=== PATIENT | male | born 1950 | race Caucasian/White ===

== ENCOUNTER → 2018-04-20 07:43 | Outpatient (CLI) | payer MEDICARE, OTHER, SELFPAY ==
--- NOTE | 2018-04-20 08:01 | AAAS_ITS ---
Reason For Study: Screening Aorta Measurements Aorta Doppler Measurements Proximal aorta measures1.68cm x 1.82cm. in cross-Peak systolic flow velocities within the proximal sectional axis. aorta measure 71 cm/sec. Proximal aorta measures1.76cm. in longitudinal Peak systolic flow velocities within the mid axis. aorta measure 64 cm/sec. Mid aorta measures1.49cm x 1.57cm. in cross- Peak systolic flow velocities within the distal sectional axis. aorta measure 90 cm/sec. Mid aorta measures1.46cm. in longitudinal axis. Distal aorta measures1.36cm x 1.34cm. in cross- sectional axis. Distal aorta measures1.39cm. in longitudinal axis. Left Iliac Artery Left iliac artery measures 0.81cm x 0.82 cm. in the cross-sectional axis. Left iliac artery measures 0.84 cm. in the longitudinal axis. Peak systolic velocity in the left iliac artery measures 214 cm/sec. Right Iliac Artery Right iliac artery measures 0.76cm x0.76 cm. in the cross-sectional axis. Right iliac artery measures 0.82 cm. in the longitudinal axis. Peak systolic velocity in the right iliac artery measures 127 cm/sec. Procedure Aorta IVC Iliac vasculature or bypass grafts 71220. Exam performed in department. Interpretation Summary The dimensions of the intra-abdominal aorta appear normal, without evidence of aneurysmal dilatation. The iliac arteries also appear normal in size. The intra-abdominal aorta and iliac arteries appear patent. The peak systolic velocity appears elevated in the left iliac artery, which is suggestive of stenosis. Clinical correlation is advised. Ordering Physician: MONA HARDEN Referring Physician: MONA HARDEN Performed By: Aubree Singletary, RDCS, RVT
== END ==
PROVIDERS: Family Provider Family Medicine; PCP Family Medicine; Visit Provider Family Medicine
DX: Z13.6 Encounter for screening for cardiovascular disorders (principal); I10 Essential (primary) hypertension
CPT/HCPCS: 76706

== ENCOUNTER 2019-08-29 12:54 | Inpatient (IN) | payer MEDICARE, OTHER, SELFPAY ==
[2019-08-29] VITALS (8 sets, daily range): BP systolic 106–147; BP diastolic 61–89; PULSE 75–95; RESP 17–25; TEMP 37.2–38.9; O2SAT 93–97; BMI 25.1; BMI 21.0; BMI 21.1
--- NOTE | 2019-08-29 13:56 | RAD_ITS ---
STUDY: X-RAY CHEST REASON FOR EXAM: Male, 69 years old. Chest congestion. Weakness and headaches. TECHNIQUE: Single AP portable view of the chest. COMPARISON: None. FINDINGS: Focal infiltrate in the lateral aspect of the right lower lobe as well as increased markings in the left lower lobe. Follow-up is recommended. There is no demonstrated pleural abnormality. Normal size heart. Normal mediastinum and nannette. Normal visualized pulmonary arteries. There is atherosclerotic tortuosity of the aortic arch and descending thoracic aorta. There are diffuse degenerative changes of the visualized thoracic spine. Normal visualized ribs, clavicles, and shoulders. There is no demonstrated abnormality of the visualized soft tissue structures of the upper abdomen. RAD/Chest 1 View (Portable) IMPRESSION: Infiltrate in the lateral aspect of the right lower lobe as well as increased markings in the left lower lobe. Follow-up is recommended. Electronically Signed: Fracisco Paredes, at 14:20 EST , Service support ,
--- NOTE | 2019-08-29 13:56 | CT_ITS ---
STUDY: CT BRAIN WITHOUT CONTRAST REASON FOR EXAM: Male, 69 years old. Headaches. Cold-like symptoms. RADIATION DOSAGE (If Supplied By Facility): CTDIvol = ( 44.99 ) mGy, DLP = ( 779.24 ) mGycm TECHNIQUE: Transaxial CT imaging of the brain was performed without administration of intravenous contrast material. Individualized dose optimization techniques were used for this CT. COMPARISON: No relevant priors. FINDINGS: Normal soft tissue structures. Normal calvarium. There is mild cerebral atrophy with widening of the extra-axial spaces and ventricular dilatation. Normal white matter tracts of the cerebral hemispheres. There are small punctate calcifications of the basal ganglia which are seen in the aging brain as a normal variant. Normal brainstem. Normal cerebellum. There is no intracranial hemorrhage. There are no findings of an acute ischemic infarction. Atherosclerotic calcification of the cavernous portions of the internal carotid arteries bilaterally. Normal visualized paranasal sinuses. CT/Brain/Head without Contrast IMPRESSION: Chronic involutional changes of the brain. No acute abnormalities. Electronically Signed: Fracisco Paredes, at 15:03 EST , Service support ,
--- NOTE | 2019-08-29 13:56 | EKG12_ITS ---
Test Reason : Blood Pressure : / mmHG Vent. Rate : 072 BPM Atrial Rate : 072 BPM P-R Int : 176 ms QRS Dur : 098 ms QT Int : 390 ms P-R-T Axes : 076 028 070 degrees QTc Int : 427 ms Normal sinus rhythm Normal ECG Confirmed by CHRISTINE MANNING, SADA ([id number]), manuscript editor YURIY DEMARCO ([id number]) on 09/02/2019 9:23:42 AM Referred By: HARJINDER Confirmed By:MARCELLA KING MD
--- NOTE | 2019-08-29 14:01 | ED.DCSUM_ITS ---
- ER Visit Summary Date of Service: 08/29/19 Chief Complaint: Near syncope History of Present Illness: The patient is a 69 M presenting with near syncope, lightheadedness, generalized weakness. He also states he has had an intermittent headache for the past 4 days. He has been taking Excedrin which has been improving his headache. He fell twice yesterday secondary to his dizziness. Denies vertigo. Denies vision or speech changes. He did not hit his head or lose consciousness with the falls. He states he does not feel safe at home because he is concerned that he is going to continue to fall. He denies chest pain. He has shortness of breath that is no worse than his chronic shortness of breath from COPD. He states he has had a cough and subjective fever for the last few days. Denies other complaints. Physical Examination: Vitals are stable. Patient is afebrile. Alert no acute distress. HEENT exam is unremarkable. Neck is supple. Lungs are diminished bilaterally. Heart is regular rate and rhythm. Abdomen is soft nontender nondistended. Extremities are unremarkable. Skin is warm and dry. No focal neurologic deficit. Remainder of exam is unremarkable. Emergency Department Course and Treatment: EKG is sinus rate of 72 with no acute ischemic changes. Chest x-ray shows infiltrate in the lateral aspect of the right lower lobe as well as increased markings in the left lower lobe. Follow- up is recommended. CT head shows chronic changes. CBC, chemistries unremarkable other than sodium 127, glucose 120, BUN 21. Troponin is negative. Blood cultures were sent. He was given Rocephin and Zithromax IV. Discussed with the hospitalist for admission. Disposition: Admission Impression: Pneumonia, hyponatremia, near-syncope This note was generated with [employer] dictation software. It may contain incorrect words, spelling, and punctuation that were not noted in review of the chart prior to signing ED Disposition - Plan for ED Patient: Referrals: Marvin Schroeder [Primary Care Provider] -
[2019-08-29 14:43] LABS: Absolute Lymphocyte Count 0.77 X10^3/uL (0.83-4.51); Absolute Neutrophil Count 8.4 X10^3/uL (2.0-7.7); Basophil# 0.02 X10^3/uL; Basophil% 0.2 % (0-1); Eosinophil# 0.01 X10^3/uL; Eosinophils% 0.1 % (0-5); Hematocrit 44.3 % (40-54); Hemoglobin 15.4 g/dL (13.0-16.5); Lymphocyte # 0.77 X10^3/ul (4.0); Lymphocyte % 7.3 % (19-41); Mean Corp Hgb Conc 34.8 g/dL (32-36); Mean Corpuscular Hgb 32.2 pg (27.0-32.0); Mean Corpuscular Volume 92.7 fL (80-94); Monocyte% 12.4 % (0-10); NRBC Flagged by Analyzer 0 % (0-5); Neutrophil # 8.35 X10^3/uL (2.7-7.7); Neutrophil % 79.5 % (47-70); Platelet Count 264 K/mm3 (150-450); RBC Distribution Width CV 11.9 % (11.6-14.6); Red Blood Count 4.78 M/mm3 (4.6-6.2); White Blood Count 10.5 K/mm3 (4.4-11.0)
[2019-08-29 14:55] LABS: Anion Gap 7 (5-15); BUN 21 mg/dL (7-18); BUN/Creat Ratio 24.1 RATIO (10-20); Calcium,Total 8.8 mg/dL (8.5-10.1); Chloride 93 mmol/L (98-107); Creatinine, Serum 0.87 mg/dL (0.70-1.30); EST Glomerular Filtration Rate 92 mL/min (>60); Est Glom Filt Rate - Afr Amer 112 mL/min (>60); Estimated Creatinine Clearance 83.91 ml/min; Glucose 120 mg/dL (74-106); Potassium 3.9 mmol/L (3.5-5.1); Sodium Level 127 mmol/L (136-145)
[2019-08-29 15:34] LABS: Squamous Epithelial Cells - UA 0 SEEN /hpf (0-5)
[2019-08-29 15:45] LABS: Color, Urine Yellow (Yellow); Glucose, Dipstick Normal (Normal); Ketone-Dipstick 15 mg/dl (Negative); Leukocyte Esterase-Dipstick 25 /ul (Negative); Nitrite-Dipstick Negative (Negative); Occult Blood-Urine 50 /ul (Negative); Protein-Dipstick 30 mg/dl (Negative); Specific Gravity, Urine 1.015 (1.002-1.030); Urine Bilirubin Dipstick Negative (Negative); Urine Clarity Clear (Clear); Urine Urobilinogen 1 mg/dl (Normal)
[2019-08-29] MEDS: Ceftriaxone 1 GM/50 ML BAG IV (15:51)
[2019-08-29 15:55] LABS: Bacteria RARE /hpf (None Seen); Mucous, Urine 1+ /hpf (<or=2+); Red Blood Cells-Urine 0-5 SEEN /hpf (0-5); White Blood Cells 0-5 SEEN /hpf (0-5)
--- NOTE | 2019-08-29 17:07 | CT_ITS ---
We are attempting to reach an attending provider to discuss findings. An addendum with communication details will be sent when the communication is complete. STUDY: CT CHEST WITHOUT CONTRAST REASON FOR EXAM: Male, 69 years old. Pneumonia RADIATION DOSAGE (If Supplied By Facility): DLP = ( 604.48 ) mGycm TECHNIQUE: Transaxial imaging was performed without the administration of intravenous contrast material. Coronal and sagittal reformatted images were created. Individualized dose optimization techniques were used for this CT. COMPARISON: None FINDINGS: Moderate emphysema is present. There is a right middle lobe consolidation. Bibasilar scarring is present. There is a left lower lobe 1.9 cm nodule with mild spiculation. There is no evidence of thoracic aortic aneurysm. Images through the upper abdomen demonstrate no significant abnormality. There are no destructive osseous lesions. CT/Chest without Contrast IMPRESSION: Right middle lobe consolidation, consistent appearance with reported pneumonia. Left lower lobe 1.9 cm nodule, concerning for neoplasm. Biopsy is recommended. Bibasilar scarring. Moderate emphysema. Electronically Signed: Jad Mtz, at 18:06 EST Tel , Service support ,
--- NOTE | 2019-08-29 17:47 | ED.RN ---
AFTER ROCEPHIN FINISHED, THIS RN WENT TO START ZITHROMAX AND FOUND BAG TO BE LEAKING. MEDICATION DISPOSED OF PER POLICY AND PHARMACY CALLED FOR NEW BAG.
[2019-08-29] MEDS: Ipratropium/Albuterol Sulfate 3 ML AMPUL.NEB INHALATION (20:00)
--- NOTE | 2019-08-29 20:29 | PCM.HP.STD ---
History of Present Illness Date of Admission: 08/29/19 The patient is a 69 year old M who presented to the ED today after being coaxed by his to do so. He has been feeling poorly for about 1 month now. He states that initially he had a sore throat and sinus issues but now he is having generalized weakness, malaise, lightheadedness, near syncope, cough, and SPANN. Today he took Excedrin and his SPANN is better today. His po intake has not been that great per his . he state that he is concerned that he is going to fall. He has SOB that is no worse than his baseline from COPD. He states that he has had some sweats and that he has felt chilled but denies fever. 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 He has not smoked in the last 5 days and has no urge to as it was making him feel worse. EKG and troponin were WNL. He has no white count elevation. He has some mild hyponatremia with an elevated BUN. Urine SG is 1.015 with a few ketones present. His BP is mildly elevated and sats are stable on RA. CXR shows an infiltrate in the RLL. Head CT was done 2/2 the near syncope episodes and was neg for acute changes. Past Medical History Medical History: Medical History (Last Reviewed 08/29/19 @ 20:53 by Gloria Sheppard DO) BPH (benign prostatic hyperplasia) N40.0 Depression F32.9 GERD (gastroesophageal reflux disease) K21.9 Hyperlipidemia E78.5 COPD (chronic obstructive pulmonary disease) J44.9 HTN (hypertension) I10 Allergies Sulfa (Sulfonamide Antibiotics) Allergy (Verified 08/29/19 12:58) Hives Home Medications: Ambulatory Orders Medication Instructions Recorded Simvastatin [Zocor] 40 mg PO QHS 07/18/17 Albuterol Inhaler [Ventolin Hfa 2 puff INHALATION Q4H PRN PRN 08/29/19 (SP)] Aspirin/Acetaminophen/Caffeine 1 tab PO DAILY 08/29/19 [Excedrin Migraine Caplet] Budesonide/Formoterol 160/4.5 2 puff INHALATION BID 08/29/19 [Symbicort 160/4.5 Mcg Inhaler (SP)] Finasteride [Proscar] 5 mg PO DAILY 08/29/19 Ipratropium/Albuterol Sulfate 3 ml INHALATION 4X/DAY 08/29/19 [Duoneb] Omeprazole 20 mg PO DAILY 08/29/19 Paroxetine HCl 20 mg PO DAILY 08/29/19 Tamsulosin HCl [Flomax] 0.4 mg PO DAILY 08/29/19 Tiotropium [place] [Spiriva 18 MCG] 1 puff INHALATION DAILY 08/29/19 Surgical History: noncontributory Psychiatric History: Anxiety, Depression Lives: Spouse/ Significant Other Smoking Status: Current every day smoker Tobacco Use: Cigarettes Alcohol: None Drugs: None Review of Systems Constitutional: Reports: Anorexia, Chills, Night Sweats, Malaise, Weakness, Fatigue. Denies: Fever, Weight Change Eyes: Denies: Blurred vision, Cataracts, Conjunctivae Inflammation, Double vision, Drainage, Eyelid Inflammation, Pain, Redness, Vision Change HEENT: Reports: Head Aches. Denies: Difficulty Hearing, Difficulty Swallowing, Dysphasia, Ear Pain, Eye Pain, Hard of Hearing, Hearing Changes, Nasal bleeding, Nasal Congestion, Post Nasal Drip, Sinus Congestion, Sinus Drainage, Sore Throat, Visual Changes Cardiovascular: Reports: Syncope - near. Denies: Chest Pain, Claudication, Chest Pressure, Chest Tightness, Edema, Heaviness, Light Headedness, Orthopnea, Palpitations, Paroxysmal Noc. Dyspnea Respiratory: Reports: Cough, Shortness of Breath, Shortness of breath upon exertion, Sputum production. Denies: Hemoptysis, Pleuritic Pain, Shortness of breath at rest, Wheezing Gastrointestinal: Denies: Abdominal Pain, Constipation, Diarrhea, Dyspepsia, Hematemesis, Hematochezia, Nausea, Melena, Vomiting Genitourinary: Reports: Retention. Denies: Dysuria, Frequency, Hematuria, Hesitancy, Incontinence, Nocturia, Urgency Musculoskeletal: Denies: Arm Pain, Back Pain, Foot Pain, Hand Pain, Joint Pain, Joint stiffness, Joint swelling, Joint Tenderness, Leg Pain, Muscle pain, Neck Pain, Shoulder Pain Skin: Denies: Dryness, Jaundice, Lesions, Pruritis, Rash, Skin Changes, Wounds Neurological: Reports: Headaches. Denies: Balance problems, Blurred vision, Double vision, Change in Speech, Slurred speech, Confusion, Difficulty swallowing, Focal weakness, Incoordination, Numbness, Tingling, Tremor, Seizures Psychiatric: Reports: Depression. Denies: Anxiety Endocrine: Denies: Change in Body Habitus, Heat/ Cold Intolerance, Polydipsia, Polyuria, Hx of Irradiation, Hx of Thyroiditis Hematologic/ Lymphatic: Denies: Adenopathy, Anemia, Easy Bruising, Easy Bleeding, Petechiae, Purpura, Hx of blood clot, Hx of blood transfusion VTE Information - Inpt Only VTE Present on Admission: No VTE Mechan Device Prophylaxis: SCD's VTE Pharm Prophylaxis ordered?: Yes - Physical Exam Vitals/I&O's: Vital Signs Temp Pulse Resp BP Pulse Ox 102.1 F H 84 18 147/78 H 94 08/29/19 18:45 08/29/19 19:00 08/29/19 18:45 08/29/19 18:45 08/29/19 18:45 Oxygen Delivery Method Room Air Weight: 66.6 kg Body Mass Index (BMI) 21.0 Intake and Output for Last 24 Hours 08/27/19 08/28/19 08/29/19 23:59 23:59 23:59 Intake Total 805 / 805 Balance 805 / 805 General: Alert, Oriented x3, Cooperative, No apparent distress, Well developed, Well nourished, - - appears comfortable, non-toxic, at bedside HEENT: Atraumatic, PERRLA, EOMI, Normocephalic Oral: Moist Mucosa, No Gingival or Mucosal Lesions/ Ulcerations Neck: Supple, No JVD, Negative Carotid Bruits, Negative Hepatojugular Reflux, No Nodes, No Nuchal Rigidity, Trachea Midline, Thyroid Normal Size and Texture Lungs: No rales, Rhonchi, Wheezes Cardiovascular: Regular rate, Regular Rhythm, Normal S1, Normal S2, No murmurs, No Ectopic Activity, No rub noted, No Gallop Abdomen: Bowel Sounds Present, Soft, Non Tender, Non-Distended, No Hepato-splenomegaly, No hernias noted Extremities: No clubbing, No cyanosis, No edema, Capillary Refill Less than 3 Seconds Skin: No rashes, No breakdown Musculoskeletal: No Tenderness to Palpation of Joints or Extremities, No Muscle Wasting, Arthritic Changes - B hands Lymphatic: No Cervical, Supraclavicular, or Inguinal Adenopathy Neurological: Cranial nerves II-XII grossly intact, Deep Tendon Reflexes 2+/4 and Symmetrical, Motor Exam 5/5 strength throughout Psych/Mental Status: Normal Affect, Anxious, - - very pleasant and A&O x 3 Laboratory Results 08/29/19 14:30: WBC 10.5, RBC 4.78, Hgb 15.4, Hct 44.3, MCV 92.7, MCH 32.2 H, MCHC 34.8, RDW Std Deviation 41.0, RDW Coeff of Vashti 11.9, Plt Count 264, MPV 9.0, Immature Gran % (Auto) 0.500, Neut % (Auto) 79.5 H, Lymph % (Auto) 7.3 L, [place] % (Auto) 12.4 H, Eos % (Auto) 0.1, Baso % (Auto) 0.2, Absolute Neuts (auto) 8.4 H, Absolute Lymphs (auto) 0.77 L, Nucleated RBC % 0 08/29/19 14:30: Sodium 127 L, Potassium 3.9, Chloride 93 L, Carbon Dioxide 27.0, Anion Gap 7, BUN 21 H, Creatinine 0.87, Estim Creat Clear Calc 83.91, Est GFR (MDRD) Af Amer 112, Est GFR (MDRD) Non-Af 92, BUN/Creatinine Ratio 24.1 H, Glucose 120 H, Calcium 8.8, Troponin I < 0.015 08/29/19 15:25: Urine Color Yellow, Urine Clarity Clear, Urine pH 6.0, Ur Specific [place] 1.015, Urine Protein 30 H, Urine Glucose (UA) Normal, Urine Ketones 15 H, Urine Occult Blood 50 H, Urine Nitrite Negative, Urine Bilirubin Negative, Urine Urobilinogen 1 H, Ur Leukocyte Esterase 25 H, Urine RBC 0-5 SEEN, Urine WBC 0-5 SEEN, Ur Squamous Epith Cells 0 SEEN, Urine Bacteria RARE, Urine Mucus 1+ Current Medications Acetaminophen (Tylenol) 650 mg PO Q6H PRN PRN PRN Reason: Non-cardiac pain (mod-severe) Hydrocodone Bitart/Acetaminophen ([place] 5mg-325mg) 1 - 2 tablet PO Q6H PRN PRN PRN Reason: Pain Score 4-10/10 Al Hydroxide/Mg Hydroxide ([place]ylanta Ii) 15 - 30 ml PO Q4H PRN PRN PRN Reason: INDIGESTION Albuterol Sulfate (Ventolin Aerosols) 2.5 mg INHALATION Q2H PRN PRN PRN Reason: dyspnea, wheezing Albuterol/Ipratropium (Duoneb) 3 ml INHALATION Q4HWA.RT [facility]ORTENC[facility] Atorvastatin Calcium (Lipitor) 20 mg PO QHS HORTENCIA Dextrose (D50w Syringe) 0 gm IV X1 PRN; Protocol PRN Reason: Hypoglycemia Famotidine (Pepcid) 20 mg PO BID [facility]ENC[facility] Finasteride (Proscar) 5 mg PO DAILY [facility] Glucagon () 1 mg IM .X1 PRN PRN Reason: Hypoglycemia Guaifenesin (Robitussin) 20 ml PO Q4H PRN PRN PRN Reason: COUGH Hydralazine HCl (Apresoline Iv) 10 mg IV Q4H PRN PRN PRN Reason: SBP > 160 Azithromycin 500 mg/ Dextrose 255 mls @ 250 mls/hr IV Q24 HORTENCIA Stop: 09/04/19 10:01 Ceftriaxone Sodium 2 gm/ (Sodium Chloride) 50 mls @ 100 mls/hr IV Q24 HORTENCIA Stop: 09/06/19 10:01 Sodium Chloride () 1,000 mls @ 125 mls/hr IV .Q8H HORTENCIA Magnesium Hydroxide (Milk Of Magnesia) 30 ml PO DAILY PRN PRN Reason: Constipation Melatonin (Melatonin) 3 mg PO QHS PRN PRN PRN Reason: INSOMNIA Morphine Sulfate () 1 - 2 mg IV Q4H PRN PRN PRN Reason: Pain Score 1-10/10 Nitroglycerin (Nitrostat) 0.4 mg SUBLINGUAL Q5M PRN PRN Reason: CARDIAC/CHEST PAIN Ondansetron HCl (Zofran) 4 mg IV Q8H PRN PRN PRN Reason: NAUSEA/VOMITING Paroxetine HCl (Paxil) 20 mg PO DAILY [facility] Sodium Chloride () 10 - 40 ml IV UD PRN PRN Reason: SALINE FLUSH Tamsulosin HCl (Flomax) 0.4 mg PO DAILY [facility] Throat Lozenges (Cepacol Sore Throat Lozenge) 1 lozenge MUCOUS MEM Q2H PRN PRN PRN Reason: Sore Throat/Cough Assessment/Plan LLL PNA -Check sputum/urine antigens -CTX and Azithro -pulm toilet -IS -CT ordered and shows mass LLL Spiculated Mass -1.9 cm -Per d/w radiology would be amenable to CT guided bx -order for am -check coags -consult pulm Thrush -nystatin swish and spit -is on steroid inhaler as outpt per MAR Hyponatremia ? related lung issues/dehydration -repeat lab in am -if worsens will need further w/u Dehydration -IVF -repeat am lab Near-Syncope -EKG and troponins are unremarkable -check orthostatics -IVF BPH -continue Flomax/Proscar COPD/Tobacco Abuse -see above -sees pulm in [place] -denies need for nicotine patch GERD -continue PPI HPL -continue statin DVT prophylaxis -Lovenox -SCD
[2019-08-29 21:03] LABS: Magnesium 2.2 mg/dL (1.6-2.6)
[2019-08-29] MEDS: 0.9% Normal Saline 1,000 ML 125 ML IV (21:29)
[2019-08-29] MEDS: Atorvastatin Calcium 20 MG Tablet PO (21:29)
[2019-08-29] MEDS: NYSTATIN 500,000 UNIT/5 ML UDC 500000 UNIT PO (21:29)
[2019-08-29] MEDS: Famotidine 20 MG Tablet PO (21:29)
[2019-08-30] VITALS (22 sets, daily range): BP systolic 84–123; BP diastolic 52–83; PULSE 69–83; RESP 14–20; TEMP 36.7–37.6; O2SAT 93–98
--- NOTE | 2019-08-30 | ASPIGT_PTH ---
PATIENT: BRAN LEMOS LOC: [facility] U#:[id number] AGE/SX: 69/M ROOM: [facility] RE08/29/[address]: Dr. Calos Rosario DO : 1950 BED: 1 DIS: 08/31/2019 SPEC #: [id number] RECD: 08/30/19 13:46 STATUS: WILLIS REQ #: [id number] TONY: 08/30/19 00:[address]: Calos Rosario DEPT: SURGICAL PATHOLOGY RECD BY: Viraj Stockton ENTERED: 08/30/19 13:46 SP TYPE: ASP RAD OTHR DR: DO Dr. Marvin Verduzco DO Dr. Kathryn Lee, DO Tissues: Lung, NOS Procedures: FNA Specimen Adequacy Special Stain Group II Surgery Specimen Level IV Imprint (control) HEADER OPERATION: CT-guided left lung biopsy PRE-OP DIAGNOSIS: Left lung mass TISSUE SUBMITTED: Left lower lung nodule 20 gauge core x3 MICROSCOPIC DIAGNOSIS Left lower lung nodule, CT-guided core biopsy: Poorly differentiated non-small cell carcinoma. See comment. SJ:lana 09/02/19 COMMENT The specimen is evaluated at the time of biopsy by Dr. Lawson. Immediate Evaluation = Malignant cells present. Immunohistochemistry ([id number]) supports the above diagnosis. IHC profile and morphology are not specific enough to characterize as to squamous cell carcinoma versus adenocarcinoma. Mucin stain with matched control is used in the evaluation of the specimen and tumor cells are negative for mucin. Molecular studies on the tumor can be performed, if clinically indicated. Please notify the laboratory, if they are needed. Correlation with clinical, radiologic findings and appropriate follow up are necessary. Case has been reviewed in consultation with Dr. Christensen who concurs with the above diagnosis. IDC:AM MICROSCOPIC DESCRIPTION Slides are reviewed. GROSS DESCRIPTION Received in fixative is one container labeled with the patient's name and designated left lung mass, CT-guided core biopsy. The specimen consists of multiple irregular fragments of dale soft tissue that in aggregate measure 1 x 0.1 x <0.1 cm. The entire specimen is submitted in one cassette. One touch imprint is prepared at the time of core biopsy. / LUCÍA:lana 08/30/19 TC:0 CPT: 91554, 71845, 79672
--- NOTE | 2019-08-30 | IMM_PTH ---
PATIENT: BRAN LEMOS LOC: [facility] U#:[id number] AGE/SX: 69/M ROOM: [facility] RE08/29/[address]: Dr. Calos Rosario DO : 1950 BED: 1 DIS: 08/31/2019 SPEC #: [id number] RECD: 09/02/19 12:50 STATUS: SOUT REQ #: [id number] TONY: 08/30/19 00:[address]: Calos Rosario DEPT: IMMUNOHISTOCHEMISTRY RECD BY: Alannah Barriga ENTERED: 09/02/19 12:51 SP TYPE: IMMUNO OTHR DR: Dr. Hong Zaragoza, DO Dr. Marvin Schroeder, DO Dr. Gloria Sheppard, Tissues: Lung, NOS Procedures: RCC (add) NAPSIN A (add) CK20 (add) CK5-6 (add) CK7 (add) CK8 (add) HEP PAR (add) TTF1 (add) Pankeratin (initial) P40 (add) PSAP (add) PHYSICIAN & [address] [address] SPECIMEN INFORMATION: Tissue Source: Left lower lug nodule, CT-guided biopsy Clinical Info: Left lung mass Specimen Number: [id number] CPT code: 83288, 94147 x10 METHODOLOGY: Deparaffinized sections of prefer/formalin-fixed tissue or PAP/DQ stained slides are incubated with monoclonal/polyclonal antibodies/oligonucleotide probes. Localization is made via biotin free immunoperoxidase method. Appropriate controls are performed and reacted as expected. Results on target cell population are indicated in the following table: RESULTS: ANTIBODY / CLONE RESULT AE1-3 (AE1/AE3/PCK26) positive CK7 (OV-TL12/30) positive CK8 (14tyegW00) positive CK20 (KS20.8) negative TTF-1 (8G7G3/1) negative Napsin A (Rabbit Polyclonal) negative HepPar (OCh1E5) negative RCC (PN-15) negative PSAP (PASE/4LJ) negative CK5-6 (D5 & 1684) positive, focal P40 (BC28) positive, focal These tests were developed and their performance characteristics determined by [facility]. They may not have been cleared or approved by the U.S. Food and Drug Administration. The FDA has determined that such clearance or approval is not necessary. The above immunohistochemical/dualISH markers are ordered and reviewed by the Pathologist. INTERPRETATION: Left lower lug nodule, CT-guided biopsy: Poorly differentiated non-small cell carcinoma. See comment. Comment: IHC profile and morphology are not specific enough to characterize the lesion as squamous cell carcinoma versus adenocarcinoma. Case has been reviewed in consultation with Dr. Christensen who concurs with the above diagnosis. IDC:[email or web address] SJ:lana 09/03/19
[2019-08-30 03:19] LABS: Absolute Lymphocyte Count 1.23 X10^3/uL (0.83-4.51); Absolute Neutrophil Count 6.6 X10^3/uL (2.0-7.7); Basophil# 0.01 X10^3/uL; Basophil% 0.1 % (0-1); Eosinophil# 0.03 X10^3/uL; Eosinophils% 0.3 % (0-5); Hematocrit 40.1 % (40-54); Hemoglobin 13.9 g/dL (13.0-16.5); Lymphocyte # 1.23 X10^3/ul (4.0); Lymphocyte % 13.4 % (19-41); Mean Corp Hgb Conc 34.7 g/dL (32-36); Mean Corpuscular Hgb 32.3 pg (27.0-32.0); Mean Corpuscular Volume 93.3 fL (80-94); Monocyte# 1.25 X10^3/uL; Monocyte% 13.7 % (0-10); NRBC Flagged by Analyzer 0 % (0-5); Neutrophil # 6.58 X10^3/uL (2.7-7.7); Platelet Count 260 K/mm3 (150-450); RBC Distribution Width SD 41.3 fl (35.1-43.9); White Blood Count 9.2 K/mm3 (4.4-11.0)
[2019-08-30 03:23] LABS: International Normalized Ratio 1.1; Partial Thromboplast Time 35.2 Seconds (24.1-36.2); Prothrombin Time (Protime)PT. 13.7 SECONDS (11.7-14.9)
[2019-08-30 05:14] LABS: Anion Gap 10 (5-15); BUN 16 mg/dL (7-18); BUN/Creat Ratio 18.9 RATIO (10-20); Calcium,Total 7.6 mg/dL (8.5-10.1); Chloride 94 mmol/L (98-107); Creatinine, Serum 0.85 mg/dL (0.70-1.30); EST Glomerular Filtration Rate 95 mL/min (>60); Est Glom Filt Rate - Afr Amer 115 mL/min (>60); Estimated Creatinine Clearance 78.35 ml/min; Glucose 99 mg/dL (74-106); Potassium 3.7 mmol/L (3.5-5.1); Sodium Level 129 mmol/L (136-145)
[2019-08-30] MEDS: 0.9% Normal Saline 1,000 ML 125 ML IV ×2 (05:17→16:42)
--- NOTE | 2019-08-30 05:55 | CT_ITS ---
PROCEDURE: CT GUIDED CORE NEEDLE BIOPSY OF A left lower lobe LUNG LESION INDICATION: Male, 69 years old. Left lower lobe nodule. PHYSICIAN: Dr. Lena Garcia CONSENT: Written informed consent was obtained having explained the risks, benefits and alternatives in detail with the patient who accepted the risks and agreed to proceed. Laboratory review and clinical assessment was performed. CONSCIOUS SEDATION PROTOCOL: The Drugs used were: 2 mg Versed, IV., and 50 mcg Fentanyl, IV. The sedation time was: 21 minutes. Conscious sedation was started at 12:44 PM and terminated at 1:05 PM The conscious sedation protocol was independently monitored. RADIATION DOSAGE (If Supplied By Facility): CTDIvol = ( 16.6 ) mGy, DLP = ( 421.64 ) mGycm Individualized dose optimization techniques were used for this CT. TECHNIQUE: The patient was placed in the prone position. A noncontrast CT was performed to localize the lesion in the posterior medial segment of the left lower lobe . The skin surface was prepped and draped in a sterile fashion. 1% lidocaine was used for local anesthesia. Using CT guidance, a 20-gauge coaxial biopsy device was advanced to the periphery of the lesion. A total of 3 core specimens were obtained. The specimens were placed in a formalin solution. A post procedure CT demonstrated no adverse sequelae or pneumothorax. The patient tolerated the procedure well without adverse event. A negative biopsy does not exclude malignancy. Further imaging or clinical followup based on patient condition and degree of clinical suspicion for malignancy. Suggest rebiopsy, if biopsy results do not match with clinical scenario. CT/Biopsy/Inj or Needle Placement IMPRESSION: 1. CT directed core needle biopsy of the left lower lobe pulmonary nodule using CT image guidance with image documentation as described. Pathology results are pending. 2. Conscious Sedation protocol utilized with independent monitoring. Electronically Signed: Fracisco Paredes, at 13:43 EST , Service support ,
--- NOTE | 2019-08-30 05:55 | EKG12_ITS ---
Test Reason : AM EKG Blood Pressure : / mmHG Vent. Rate : 074 BPM Atrial Rate : 074 BPM P-R Int : 212 ms QRS Dur : 082 ms QT Int : 372 ms P-R-T Axes : 072 053 070 degrees QTc Int : 412 ms Sinus rhythm with 1st degree A-V block Otherwise normal ECG Confirmed by LUIS MANNING, MICHELLE ([id number]), news assignment editor YURIY DEMARCO ([id number]) on 09/02/2019 9:54:36 AM Referred By: KRISTEN Confirmed By:MICHELLE SMITH MD
[2019-08-30] MEDS: Ipratropium/Albuterol Sulfate 3 ML AMPUL.NEB INHALATION ×3 (07:04→20:12)
[2019-08-30] MEDS: Budesonide Respules 0.5 MG/2 ML AMPUL.NEB. INHALATION (07:26)
--- NOTE | 2019-08-30 07:47 | CON.PCM_ITS ---
Reason for Consult Date of Consultation: 08/30/19 Reason for Consultation: Lung mass History of Present Illness: The patient is a 69-year-old male, with a history as outlined below, who presented to the emergency department on August 29 after having experienced a near syncopal event. The patient also reported that he had also been experiencing subjective fevers and chills. He does have a self-reported history of COPD of unknown severity, for which he currently follows with Dr. White at [facility]. The patient does have a smoking history of 0.5 to 1 pack of cigarettes per day x60 years. 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 On presentation to the emergency department, the patient was noted to be afebrile and hemodynamically stable. He was initially maintaining appropriate oxygen saturations on room air. Laboratory evaluation revealed no evidence of a leukocytosis. Chemistry profile was notable for a sodium of 127, chloride of 93 and normal creatinine. Troponin was within normal limits. Head CT apparently revealed chronic involutional changes of the brain. Plain film chest x-ray revealed a focal infiltrate in the right lower lobe. A follow-up chest CT without contrast was then obtained which revealed bilateral emphysematous changes, right middle lobe consolidation and a 1.9 x 1.4 cm nodule in the left lower lobe. The patient was subsequently placed on bronchodilators and antimicrobials. He was then admitted to the progressive care unit for further management. Past Medical History Medical History: Medical History (Last Reviewed 08/29/19 @ 20:53 by Gloria Sheppard DO) BPH (benign prostatic hyperplasia) N40.0 Depression F32.9 GERD (gastroesophageal reflux disease) K21.9 Hyperlipidemia E78.5 COPD (chronic obstructive pulmonary disease) J44.9 HTN (hypertension) I10 Allergies Sulfa (Sulfonamide Antibiotics) Allergy (Verified 08/29/19 12:58) Hives Home Medications: Ambulatory Orders Medication Instructions Recorded Simvastatin [Zocor] 40 mg PO QHS 07/18/17 Albuterol Inhaler [Ventolin Hfa 2 puff INHALATION Q4H PRN PRN 08/29/19 (SP)] Aspirin/Acetaminophen/Caffeine 1 tab PO DAILY 08/29/19 [Excedrin Migraine Caplet] Budesonide/Formoterol 160/4.5 2 puff INHALATION BID 08/29/19 [Symbicort 160/4.5 Mcg Inhaler (SP)] Finasteride [Proscar] 5 mg PO DAILY 08/29/19 Ipratropium/Albuterol Sulfate 3 ml INHALATION 4X/DAY 08/29/19 [Duoneb] Omeprazole 20 mg PO DAILY 08/29/19 Paroxetine HCl 20 mg PO DAILY 08/29/19 Tamsulosin HCl [Flomax] 0.4 mg PO DAILY 08/29/19 Tiotropium [place] [Spiriva 18 MCG] 1 puff INHALATION DAILY 08/29/19 Surgical History: noncontributory Psychiatric History: Anxiety, Depression Lives: Spouse/ Significant Other Smoking Status: Current every day smoker Tobacco Use: Cigarettes Alcohol: None Drugs: None Review of Systems Constitutional: Reports: Chills, Fever, Malaise, Fatigue Eyes: Denies: Blurred vision, Double vision HEENT: Denies: Head Aches, Sinus Congestion, Sinus Drainage Cardiovascular: Denies: Chest Pain, Palpitations Respiratory: Reports: Shortness of Breath Gastrointestinal: Denies: Abdominal Pain, Nausea, Vomiting Genitourinary: Denies: Dysuria Musculoskeletal: Denies: Joint Pain, Joint Tenderness Skin: Denies: Rash, Wounds Neurological: Reports: Headaches Psychiatric: Denies: Anxiety, Depression, Homicidal Ideations, Suicidal Ideations Hematologic/ Lymphatic: Denies: Easy Bruising, Easy Bleeding Objective: The patient's most recent lab work, culture data and imaging studies have all been personally reviewed. - Physical Exam Vitals/I&O's: Vital Signs Temp Pulse Resp BP Pulse Ox 98.6 F 75 18 110/73 96 08/30/19 03:30 08/30/19 07:38 08/30/19 03:30 08/30/19 07:38 08/30/19 03:30 Oxygen Flow Rate (L/min) 2 Oxygen Delivery Method Room Air Weight: 146 lb 13.246 oz Body Mass Index (BMI) 21.0 Orthostatic Vital Signs Start: 08/29/19 22:17 Freq: q24h Status: Active Protocol: Activity Type Activity Date Activity User E-Sign Co-Sign Detail Recorded Client Recorded Date Recorded By Document 08/30/19 07:38 CM [id number] 08/30/19 07:39 CM 08/30/19 07:38 Orthostatic Vitals Standing -Blood Pressure (90/60-120/80) 84/52 L -Extremity Use Right Arm -Pulse Rate (60-100) 83 Sitting -Blood Pressure (90/60-120/80) 95/61 -Extremity Use Right Arm -Pulse Rate (60-100) 77 Lying -Blood Pressure (90/60-120/80) 110/73 -Extremity Use Right Arm -Pulse Rate (60-100) 75 Intake and Output for Last 24 Hours 08/28/19 08/29/19 08/30/19 23:59 23:59 23:59 Intake Total 1190.42 / 1190.42 664.58 / 664.58 Balance 1190.42 / 1190.42 664.58 / 664.58 General: Alert, Cooperative, No apparent distress HEENT: Atraumatic, PERRLA, Normocephalic Oral: No Gingival or Mucosal Lesions/ Ulcerations Neck: Supple, No Nodes, Trachea Midline Lungs: No rhonchi, Diminished, Wheezes Cardiovascular: Regular rate, Regular Rhythm, Normal S1, Normal S2, No murmurs Abdomen: Bowel Sounds Present, Soft, Non Tender Extremities: No clubbing, No cyanosis, No edema Skin: No breakdown Musculoskeletal: No Tenderness to Palpation of Joints or Extremities Lymphatic: No Cervical, Supraclavicular, or Inguinal Adenopathy Neurological: Neuro grossly intact Psych/Mental Status: Normal Affect, Appropriate Labs (Last 48 Hours) 08/29/19 08/29/19 08/29/19 14:30 14:30 15:25 WBC 10.5 RBC 4.78 Hgb 15.4 Hct 44.3 MCV 92.7 MCH 32.2 H MCHC 34.8 RDW Std Deviation 41.0 RDW Coeff of [place] 11.9 Plt Count 264 MPV 9.0 Immature Gran % (Auto) 0.500 Neut % (Auto) 79.5 H Lymph % (Auto) 7.3 L [place] % (Auto) 12.4 H Eos % (Auto) 0.1 Baso % (Auto) 0.2 Absolute Neuts (auto) 8.4 H Absolute Lymphs (auto) 0.77 L Nucleated RBC % 0 PT INR APTT Sodium 127 L Potassium 3.9 Chloride 93 L Carbon Dioxide 27.0 Anion Gap 7 BUN 21 H Creatinine 0.87 Estim Creat Clear Calc 83.91 Est GFR (MDRD) Af Amer 112 Est GFR (MDRD) Non-Af 92 BUN/Creatinine Ratio 24.1 H Glucose 120 H Calcium 8.8 Magnesium Troponin I < 0.015 Urine Color Yellow Urine Clarity Clear Urine pH 6.0 Ur Specific [place] 1.015 Urine Protein 30 H Urine Glucose (UA) Normal Urine Ketones 15 H Urine Occult Blood 50 H Urine Nitrite Negative Urine Bilirubin Negative Urine Urobilinogen 1 H Ur Leukocyte Esterase 25 H Urine RBC 0-5 SEEN Urine WBC 0-5 SEEN Ur Squamous Epith Cells 0 SEEN Urine Bacteria RARE Urine Mucus 1+ 08/29/19 08/29/19 08/30/19 20:30 23:05 02:43 WBC 9.2 RBC 4.30 L Hgb 13.9 Hct 40.1 MCV 93.3 MCH 32.3 H MCHC 34.7 RDW Std Deviation 41.3 RDW Coeff of [place] 12.0 Plt Count 260 MPV 9.0 Immature Gran % (Auto) 0.500 Neut % (Auto) 72.0 H Lymph % (Auto) 13.4 L Rowan % (Auto) 13.7 H Eos % (Auto) 0.3 Baso % (Auto) 0.1 Absolute Neuts (auto) 6.6 Absolute Lymphs (auto) 1.23 Nucleated RBC % 0 PT INR APTT Sodium Potassium Chloride Carbon Dioxide Anion Gap BUN Creatinine Estim Creat Clear Calc Est GFR (MDRD) Af Amer Est GFR (MDRD) Non-Af BUN/Creatinine Ratio Glucose Calcium Magnesium 2.2 Troponin I < 0.015 < 0.015 Urine Color Urine Clarity Urine pH Ur Specific [place] Urine Protein Urine Glucose (UA) Urine Ketones Urine Occult Blood Urine Nitrite Urine Bilirubin Urine Urobilinogen Ur Leukocyte Esterase Urine RBC Urine WBC Ur Squamous Epith Cells Urine Bacteria Urine Mucus 08/30/19 08/30/19 08/30/19 02:43 02:43 02:43 WBC RBC Hgb Hct MCV MCH MCHC RDW Std Deviation RDW Coeff of [place] Plt Count MPV Immature Gran % (Auto) Neut % (Auto) Lymph % (Auto) [place] % (Auto) Eos % (Auto) Baso % (Auto) Absolute Neuts (auto) Absolute Lymphs (auto) Nucleated RBC % PT 13.7 INR 1.1 APTT 35.2 Sodium 129 L Potassium 3.7 Chloride 94 L Carbon Dioxide 25.0 Anion Gap 10 BUN 16 Creatinine 0.85 Estim Creat Clear Calc 78.35 Est GFR (MDRD) Af Amer 115 Est GFR (MDRD) Non-Af 95 BUN/Creatinine Ratio 18.9 Glucose 99 Calcium 7.6 L Magnesium Troponin I < 0.015 Urine Color Urine Clarity Urine pH Ur Specific [place] Urine Protein Urine Glucose (UA) Urine Ketones Urine Occult Blood Urine Nitrite Urine Bilirubin Urine Urobilinogen Ur Leukocyte Esterase Urine RBC Urine WBC Ur Squamous Epith Cells Urine Bacteria Urine Mucus Microbiology 08/29/19 15:25 Interface Orders Legionella Antigen - Final 08/29/19 15:25 Interface Orders Streptococcus pneumoniae Antigen (M - Final Clinical Impression(s) from Imaging Studies Brain CT 08/29/19 13:56 IMPRESSION: Chronic involutional changes of the brain. No acute abnormalities. Electronically Signed: Fracisco Paredes, at 15:03 EST , Service support , Chest X-Ray 08/29/19 13:56 IMPRESSION: Infiltrate in the lateral aspect of the right lower lobe as well as increased markings in the left lower lobe. Follow-up is recommended. Electronically Signed: Fracisco Paredes, at 14:20 EST , Service support , Chest CT 08/29/19 17:07 IMPRESSION: Right middle lobe consolidation, consistent appearance with reported pneumonia. Left lower lobe 1.9 cm nodule, concerning for neoplasm. Biopsy is recommended. Bibasilar scarring. Moderate emphysema. Electronically Signed: Jad Mtz, at 18:06 EST Tel , Service support , ADDENDUM: 08/29/19 193 IMPRESSION: Right middle lobe consolidation, consistent appearance with reported pneumonia. Left lower lobe 1.9 cm nodule, concerning for neoplasm. Biopsy is recommended. Bibasilar scarring. Moderate emphysema. N.B. : The above information has been verbally conveyed by Jad Mtz to Dr. Gloria Sheppard MD, on 08/29/2019 19:25:05 (ET). Electronically Signed: Jad Mtz, at 18:06 EST Tel , Service support , Current Medications Acetaminophen (Tylenol) 650 mg PO Q6H PRN PRN PRN Reason: Non-cardiac pain (mod-severe) Hydrocodone Bitart/Acetaminophen ([place] 5mg-325mg) 1 - 2 tablet PO Q6H PRN PRN PRN Reason: Pain Score 4-10/10 Al Hydroxide/Mg Hydroxide (Mylanta Ii) 15 - 30 ml PO Q4H PRN PRN PRN Reason: INDIGESTION Albuterol Sulfate (Ventolin Aerosols) 2.5 mg INHALATION Q2H PRN PRN PRN Reason: dyspnea, wheezing Albuterol/Ipratropium (Duoneb) 3 ml INHALATION Q4HWA.RT [facility] Last Admin: 08/30/19 07:04 Dose: 3 ml Documented by: Atorvastatin Calcium (Lipitor) 20 mg PO QHS [facility] Last Admin: 08/29/19 21:29 Dose: 20 mg Documented by: Budesonide (Pulmicort Aerosol) 0.5 mg INHALATION BID.RT [facility] Last Admin: 08/30/19 07:26 Dose: 0.5 mg Documented by: Dextrose (D50w Syringe) 0 gm IV X1 PRN; Protocol PRN Reason: Hypoglycemia Enoxaparin Sodium (Lovenox) 40 mg SC DAILY@0600 [facility] Last Admin: 08/30/19 06:24 Dose: Not Given Documented by: Famotidine (Pepcid) 20 mg PO BID [facility] Last Admin: 08/29/19 21:29 Dose: 20 mg Documented by: Finasteride (Proscar) 5 mg PO DAILY [facility] Glucagon () 1 mg IM .X1 PRN PRN Reason: Hypoglycemia Guaifenesin (Robitussin) 20 ml PO Q4H PRN PRN PRN Reason: COUGH Hydralazine HCl (Apresoline Iv) 10 mg IV Q4H PRN PRN PRN Reason: SBP > 160 Azithromycin 500 mg/ Dextrose 255 mls @ 250 mls/hr IV Q24 [facility] Stop: 09/04/19 10:01 Ceftriaxone Sodium 2 gm/ (Sodium Chloride) 50 mls @ 100 mls/hr IV Q24 [facility] Stop: 09/06/19 10:01 Sodium Chloride () 1,000 mls @ 125 mls/hr IV .Q8H [facility] Last Admin: 08/30/19 05:17 Dose: 125 mls/hr Documented by: Magnesium Hydroxide (Milk Of Magnesia) 30 ml PO DAILY PRN PRN Reason: Constipation Melatonin (Melatonin) 3 mg PO QHS PRN PRN PRN Reason: INSOMNIA Morphine Sulfate () 1 - 2 mg IV Q4H PRN PRN PRN Reason: Pain Score 1-10/10 Nitroglycerin (Nitrostat) 0.4 mg SUBLINGUAL Q5M PRN PRN Reason: CARDIAC/CHEST PAIN Nystatin (Nystatin) 500,000 unit PO 4X/DAY [facility] Last Admin: 08/29/19 21:29 Dose: 500,000 unit Documented by: Ondansetron HCl (Zofran) 4 mg IV Q8H PRN PRN PRN Reason: NAUSEA/VOMITING Paroxetine HCl (Paxil) 20 mg PO DAILY [facility] Sodium Chloride () 10 - 40 ml IV UD PRN PRN Reason: SALINE FLUSH Tamsulosin HCl (Flomax) 0.4 mg PO DAILY [facility] Throat Lozenges (Cepacol Sore Throat Lozenge) 1 lozenge MUCOUS MEM Q2H PRN PRN PRN Reason: Sore Throat/Cough Assessment/Plan RECOMMENDATIONS: 1. Continue bronchodilators and antimicrobials, pending infectious work-up. 2. Proceed with CT-guided lung biopsy. 3. Encourage incentive spirometer use and mobilize patient as tolerated. 4. Nicotine replacement therapy can be offered to the patient. 5. Perform walking oximetry study prior to consideration for discharge home. 6. Outpatient follow-up with the patient's primary environmental technology professor within 2 weeks of discharge. IMPRESSIONS: 1. Self-reported COPD with exacerbation secondary to community-acquired pneumonia Continue current supportive measures with bronchodilators and antimicrobials. The patient is currently maintaining appropriate oxygen saturations on room air. Await infectious work-up. Perform walking oximetry study prior to consideration for discharge home. 2. Lung nodule The patient's CT chest incidentally made note of a left lower lobe 2 cm lung nodule, which of course would be worrisome in an individual with a smoking history such as this patient. Arrangements have already been made for the patient to undergo a CT-guided lung biopsy today. 3. Continuous tobacco dependency I personally spent 5 minutes discussing the deleterious effects of continued tobacco use with the patient, including modalities which could be utilized to achieve a smoke-free lifestyle. The patient is insistent that he is going to quit smoking effective this hospitalization. Nicotine replacement therapy can be offered to the patient while admitted to the hospital. This note was generated with [employer] dictation software. It may contain incorrect words, spelling, and punctuation that were not noted in checking the note before signing. Code Visit Inpatient E&M: 08997 Init Hosp L3 - Behavior Interventions Behavior Intervention: 00142 Smoking Cessation 3-10 min
[2019-08-30] MEDS: Finasteride 5 MG Tablet PO (09:34)
[2019-08-30] MEDS: NYSTATIN 500,000 UNIT/5 ML UDC 500000 UNIT PO ×4 (09:34→22:02)
[2019-08-30] MEDS: Famotidine 20 MG Tablet PO ×2 (09:34→22:02)
[2019-08-30] MEDS: Paroxetine 20 MG Tablet PO (09:34)
[2019-08-30] MEDS: Tamsulosin HCl 0.4 MG Capsule PO (09:35)
--- NOTE | 2019-08-30 09:39 | CASEMGMT ---
Patient has advance directives, but they are not on file at [facility]. SW spoke with patient and let him know that they are not on file. He said he is aware and he will try and get them here when he can. His son Wenceslao is his POA and his number is [phone]. Patient's is listed on contacts, but she 3 years ago so SW took her off of demographics sheet. Kisha QUINONEZ MSW
--- NOTE | 2019-08-30 10:10 | CASEMGMT ---
RN CM INSURANCE PREMIUM AUDITOR CM to room to meet with patient for initial transition planning/care coordination assessment. RN NETTA introduced self and role at [facility]. Pt voices understanding and consents to assessment at this time. Pt resting in bed in no distress at this time. Pt is A/O at this time and answers all questions appropriately. Care providers, pharmacy, and demographics verified/updated at this time. PCP: Alexandre Specialists: Jered--pulmonology Preferred Pharmacy: [facility] Insurance: [employer] Prescription Benefit: Yes, AARP Living Will/HPOA: Has both LW and HCPOA, who is his son, Wenceslao [place]: Son, Wenceslao. Has a daughter also, but states has not spoken to her for about 20 yrs. Living Arrangements: Lives alone in 2-story home. [employer]. 4 steps to enter. States was independent with all ADL's prior to recent illness. States has just been sponge bathing recently d/t feeling ill and has not had much of an appetite, so has not been cooking much either. Transportation: Pt states drives self and states no transportation concerns at this time. States his friend, Ching, from [employer] can assist with driving if needed. Denies transportation concerns. DME: Has a nebulizer. Denies needs for further DME at this time. HHC/SNF: No history of either and denies needs. Discussed HHC and OP therapy but pt declines both at this time. Pt wishes to return home and states has no concerns with going home at time of discharge. CM to follow for home oxygen needs and any further discharge planning/needs. PT/OT evals pending. CM to follow for any needs. Pt voices no further concerns/needs at this time. Advised pt to ask for CM if any further questions/concerns/needs arise. Voices understanding. PLAN: Home. CM to follow pt progress, PT/OT evals, and assist with any discharge planning/needs that may arise. Tam JOHN RN, CM
[2019-08-30] MEDS: Acetaminophen 325 MG Tablet 650 MG PO (12:17)
[2019-08-30] MEDS: fentaNYL 100 MCG/2 ML Ampul IV (12:44)
[2019-08-30] MEDS: Midazolam 2 MG/2 ML Syringe IV (12:44)
--- NOTE | 2019-08-30 13:10 | RAD_ITS ---
STUDY: X-RAY CHEST REASON FOR EXAM: Male, 69 years old. Immediate post left lung biopsy radiograph. TECHNIQUE: AP inspiration and expiration views. COMPARISON: Comparison is made with prior study dated August 29, 2019. FINDINGS: No evidence of pneumothorax following a left lung biopsy. RAD/Chest Insp/Exp 2 View IMPRESSION: No evidence of pneumothorax following a left lung biopsy. Electronically Signed: Fracisco Paredes, at 15:42 EST , Service support ,
--- NOTE | 2019-08-30 13:34 | PN_ITS ---
Subjective: Patient seen and examined. Continues to have shortness of breath. Not currently requiring oxygen. Discussed results of CT of chest with patient which demonstrated left lower lobe lung nodule, concerning for neoplasm. Patient initially hesitant to undergo biopsy, after discussion he is agreeable to undergo lung biopsy later today. - Physical Exam Vitals/I&O's: Vital Signs Temp Pulse Resp BP Pulse Ox 99.6 F H 73 14 105/63 93 08/30/19 09:32 08/30/19 13:20 08/30/19 13:20 08/30/19 13:20 08/30/19 13:20 Oxygen Flow Rate (L/min) [5] 2 Oxygen Flow Rate (L/min) [4] 2 Oxygen Flow Rate (L/min) [3] 2 Oxygen Flow Rate (L/min) [2] 2 Oxygen Flow Rate (L/min) [1 ( 2 Initial Baseline)] Oxygen Flow Rate (L/min) 2 Oxygen Delivery Method [5] Nasal Cannula Oxygen Delivery Method [4] Nasal Cannula Oxygen Delivery Method [3] Nasal Cannula Oxygen Delivery Method [2] Nasal Cannula Oxygen Delivery Method [1 ( Nasal Cannula Initial Baseline)] Oxygen Delivery Method Room Air Weight: 146 lb 13.246 oz Body Mass Index (BMI) 21.0 Orthostatic Vital Signs Start: 08/29/19 22:17 Freq: q24h Status: Active Protocol: Activity Type Activity Date Activity User E-Sign Co-Sign Detail Recorded Client Recorded Date Recorded By Document 08/30/19 07:38 CM [id number] 08/30/19 07:39 CM 08/30/19 07:38 Orthostatic Vitals Standing -Blood Pressure (90/60-120/80) 84/52 L -Extremity Use Right Arm -Pulse Rate (60-100) 83 Sitting -Blood Pressure (90/60-120/80) 95/61 -Extremity Use Right Arm -Pulse Rate (60-100) 77 Lying -Blood Pressure (90/60-120/80) 110/73 -Extremity Use Right Arm -Pulse Rate (60-100) 75 Intake and Output for Last 24 Hours 08/28/19 08/29/19 08/30/19 23:59 23:59 23:59 Intake Total 1190.42 / 1190.42 Balance 1190.42 / 1190.42 General: Alert, Oriented x3, Cooperative HEENT: Atraumatic, PERRLA, EOMI, Normocephalic Neck: Supple, No JVD, Negative Carotid Bruits Lungs: Diminished, Wheezes Cardiovascular: Regular rate, Regular Rhythm, Normal S1, Normal S2, No murmurs Abdomen: Bowel Sounds Present, Soft, Non Tender, Non-Distended Extremities: No clubbing, No cyanosis, No edema, Capillary Refill Less than 3 Seconds Skin: No rashes, No breakdown Musculoskeletal: No Tenderness to Palpation of Joints or Extremities Neurological: Cranial nerves II-XII grossly intact, Neuro grossly intact Psych/Mental Status: Anxious Microbiology Past 72 Hours 08/29/19 15:25 Interface Orders Legionella Antigen - Final 08/29/19 15:25 Interface Orders Streptococcus pneumoniae Antigen (M - Final Laboratory Results 08/29/19 14:30: WBC 10.5, RBC 4.78, Hgb 15.4, Hct 44.3, MCV 92.7, MCH 32.2 H, MCHC 34.8, RDW Std Deviation 41.0, RDW Coeff of Vashti 11.9, Plt Count 264, MPV 9.0, Immature Gran % (Auto) 0.500, Neut % (Auto) 79.5 H, Lymph % (Auto) 7.3 L, [place] % (Auto) 12.4 H, Eos % (Auto) 0.1, Baso % (Auto) 0.2, Absolute Neuts (auto) 8.4 H, Absolute Lymphs (auto) 0.77 L, Nucleated RBC % 0 08/29/19 14:30: Sodium 127 L, Potassium 3.9, Chloride 93 L, Carbon Dioxide 27.0, Anion Gap 7, BUN 21 H, Creatinine 0.87, Estim Creat Clear Calc 83.91, Est GFR (MDRD) Af Amer 112, Est GFR (MDRD) Non-Af 92, BUN/Creatinine Ratio 24.1 H, Glucose 120 H, Calcium 8.8, Troponin I < 0.015 08/29/19 15:25: Urine Color Yellow, Urine Clarity Clear, Urine pH 6.0, Ur Specific [place] 1.015, Urine Protein 30 H, Urine Glucose (UA) Normal, Urine Ketones 15 H, Urine Occult Blood 50 H, Urine Nitrite Negative, Urine Bilirubin Negative, Urine Urobilinogen 1 H, Ur Leukocyte Esterase 25 H, Urine RBC 0-5 SEEN, Urine WBC 0-5 SEEN, Ur Squamous Epith Cells 0 SEEN, Urine Bacteria RARE, Urine Mucus 1+ 08/29/19 20:30: Magnesium 2.2, Troponin I < 0.015 08/29/19 23:05: Troponin I < 0.015 08/30/19 02:43: WBC 9.2, RBC 4.30 L, Hgb 13.9, Hct 40.1, MCV 93.3, MCH 32.3 H, MCHC 34.7, RDW Std Deviation 41.3, RDW Coeff of Vashti 12.0, Plt Count 260, MPV 9.0, Immature Gran % (Auto) 0.500, Neut % (Auto) 72.0 H, Lymph % (Auto) 13.4 L, [place] % (Auto) 13.7 H, Eos % (Auto) 0.3, Baso % (Auto) 0.1, Absolute Neuts (auto) 6.6, Absolute Lymphs (auto) 1.23, Nucleated RBC % 0 08/30/19 02:43: Sodium 129 L, Potassium 3.7, Chloride 94 L, Carbon Dioxide 25.0, Anion Gap 10, BUN 16, Creatinine 0.85, Estim Creat Clear Calc 78.35, Est GFR (MDRD) Af Amer 115, Est GFR (MDRD) Non-Af 95, BUN/Creatinine Ratio 18.9, Glucose 99, Calcium 7.6 L 08/30/19 02:43: Troponin I < 0.015 08/30/19 02:43: PT 13.7, INR 1.1, APTT 35.2 Current Medications Acetaminophen (Tylenol) 650 mg PO Q6H PRN PRN PRN Reason: Non-cardiac pain (mod-severe) Last Admin: 08/30/19 12:17 Dose: 650 mg Documented by: Hydrocodone Bitart/Acetaminophen ([place] 5mg-325mg) 1 - 2 tablet PO Q6H PRN PRN PRN Reason: Pain Score 4-10/10 Al Hydroxide/Mg Hydroxide (Mylanta Ii) 15 - 30 ml PO Q4H PRN PRN PRN Reason: INDIGESTION Albuterol Sulfate (Ventolin Aerosols) 2.5 mg INHALATION Q2H PRN PRN PRN Reason: dyspnea, wheezing Albuterol/Ipratropium (Duoneb) 3 ml INHALATION Q4HWA.RT [facility] Last Admin: 08/30/19 11:00 Dose: 3 ml Documented by: Atorvastatin Calcium (Lipitor) 20 mg PO QHS [facility] Last Admin: 08/29/19 21:29 Dose: 20 mg Documented by: Budesonide (Pulmicort Aerosol) 0.5 mg INHALATION BID.RT [facility] Last Admin: 08/30/19 07:26 Dose: 0.5 mg Documented by: Dextrose (D50w Syringe) 0 gm IV X1 PRN; Protocol PRN Reason: Hypoglycemia Enoxaparin Sodium (Lovenox) 40 mg SC DAILY@0600 [facility] Last Admin: 08/30/19 06:24 Dose: Not Given Documented by: Famotidine (Pepcid) 20 mg PO BID [facility] Last Admin: 08/30/19 09:34 Dose: 20 mg Documented by: Fentanyl Citrate (Sublimaze (100mcg Ampule)) 25 - 50 mcg IV UD PRN PRN Reason: Procedural Pain Control Stop: 08/30/19 23:59 Last Admin: 08/30/19 12:44 Dose: 50 mcg Documented by: Finasteride (Proscar) 5 mg PO DAILY [facility] Last Admin: 08/30/19 09:34 Dose: 5 mg Documented by: Glucagon () 1 mg IM .X1 PRN PRN Reason: Hypoglycemia Guaifenesin (Robitussin) 20 ml PO Q4H PRN PRN PRN Reason: COUGH Hydralazine HCl (Apresoline Iv) 10 mg IV Q4H PRN PRN PRN Reason: SBP > 160 Azithromycin 500 mg/ Dextrose 255 mls @ 250 mls/hr IV Q24 [facility] Stop: 09/04/19 10:01 Last Infusion: 08/30/19 11:15 Dose: Infused Documented by: Ceftriaxone Sodium 2 gm/ (Sodium Chloride) 50 mls @ 100 mls/hr IV Q24 [facility] Stop: 09/06/19 10:01 Last Infusion: 08/30/19 10:03 Dose: Infused Documented by: Sodium Chloride () 1,000 mls @ 125 mls/hr IV .Q8H [facility] Last Infusion: 08/30/19 12:25 Dose: 0 mls/hr Documented by: Sodium Chloride () 500 mls @ 0 mls/hr IV .Q0M [facility] Stop: 08/30/19 23:59 Last Admin: 08/30/19 12:43 Dose: 15 mls/hr Documented by: Magnesium Hydroxide (Milk Of Magnesia) 30 ml PO DAILY PRN PRN Reason: Constipation Melatonin (Melatonin) 3 mg PO QHS PRN PRN PRN Reason: INSOMNIA Midazolam HCl (Versed) 1 - 2 mg IV UD PRN PRN Reason: Procedural Sedation Stop: 08/30/19 23:59 Last Admin: 08/30/19 12:44 Dose: 2 mg Documented by: Morphine Sulfate () 1 - 2 mg IV Q4H PRN PRN PRN Reason: Pain Score 1-10/10 Nitroglycerin (Nitrostat) 0.4 mg SUBLINGUAL Q5M PRN PRN Reason: CARDIAC/CHEST PAIN Nutritional Formula (Lactose Free) (Ensure Enlive) 120 ml PO 4X/DAY [facility] Nystatin (Nystatin) 500,000 unit PO 4X/DAY [facility] Last Admin: 08/30/19 09:34 Dose: 500,000 unit Documented by: Ondansetron HCl (Zofran) 4 mg IV Q8H PRN PRN PRN Reason: NAUSEA/VOMITING Paroxetine HCl (Paxil) 20 mg PO DAILY [facility] Last Admin: 08/30/19 09:34 Dose: 20 mg Documented by: Sodium Chloride () 10 - 40 ml IV UD PRN PRN Reason: SALINE FLUSH Tamsulosin HCl (Flomax) 0.4 mg PO DAILY [facility] Last Admin: 08/30/19 09:35 Dose: 0.4 mg Documented by: Throat Lozenges (Cepacol Sore Throat Lozenge) 1 lozenge MUCOUS MEM Q2H PRN PRN PRN Reason: Sore Throat/Cough Medical Necessity - Tobacco Use Smoking Status: Current every day smoker Tobacco Use: Cigarettes Assessment/Plan 1. Acute community acquired left lower lobe pneumonia-chest x-ray admission with infiltrate in the lateral aspect of the right lower lobe as well as increased markings in the left lower lobe. Continue IV Rocephin and IV azithromycin. Albuterol and DuoNeb aerosols. Urine for strep and Legionella negative. Send sputum for culture. Oxygen currently stable on room air. Walking pulse ox prior to discharge. 2. Left lower lobe spiculated mass-CT of chest showed left lower lobe 1.9 cm nodule, concerning for neoplasm. Patient underwent biopsy this afternoon. Pulmonary medicine following. 3. Acute exacerbation of COPD-patient with significant wheezing on exam. Resp iratory panel pending. Begin IV Solu-Medrol. 4. Oral thrush-continue nystatin 4 times daily. 5. Hyponatremia, suspect secondary to hypovolemia as result of dehydration- improving with hydration, trend BMP. 6. Near syncope-troponin negative. EKG without acute changes. Orthostatic vitals negative. Continue IV fluids as noted above. Obtain echocardiogram. 7. Tobacco dependence-encouraged cessation. 8. BPH-continue Flomax, finasteride regimen. 9. GERD-continue PPI. 10. Hyperlipidemia- continue statin. DVT prophylaxis-Lovenox subcu Code Status: Full Code This patient was seen by KATH Gage under the supervision of Dr. Rosario.
--- NOTE | 2019-08-30 13:55 | ECHOD_ITS ---
Reason For Study: Syncope/Near Syncope Procedure This was a 2D Doppler, Color Flow transthoracic echocardiogram. Exam performed portable in patient room. Left Ventricle Normal LV size. Mild concentric left ventricular hypertrophy. Left ventricular systolic function is normal. The estimated ejection fraction is 70 %. Stage 1 diastolic dysfunction. No regional wall motion abnormalities noted. Right Ventricle Normal RV size. Normal systolic function. Atria Normal left atrium. Normal right atrium. Mitral Valve Normal mitral valve. Tricuspid Valve Normal tricuspid valve. Mild (1+) tricuspid valve insufficiency. Pulmonary artery systolic pressure is 26 mmHg. Aortic Valve Normal aortic valve. Pulmonic Valve Normal pulmonic valve. Great Vessels Normal aortic root. The pulmonary artery is normal size. Normal inferior vena cava. Pericardium/Pleural No pericardial effusion. MMode/2D Measurements & Calculations LVIDd: 4.1 cm IVSd: 1.3 cm Ao root diam: 2.9 cm LVIDs: 2.7 cm LVPWd: 1.2 cm RVDd: 3.6 cm FS: 34.1 % LAV(MOD-bp): 25.5 ml LVAd ap4: 26.6 cm2 SV(MOD-sp4): 49.9 ml LAV(MOD-bp) Indexed: 14.0 ml/m2 EDV(MOD-sp4): 69.7 ml LAV(MOD-sp2): 33.7 ml EDV(sp4-el): 72.8 ml LAV(MOD-sp4): 19.1 ml LVAs ap4: 12.3 cm2 ESV(MOD-sp4): 19.8 ml ESV(sp4-el): 18.9 ml EF(MOD-sp4): 71.6 % EF(sp4-el): 74.0 % SV(sp4-el): 53.9 ml LA A4 area: 10.7 cm2 LA dimension(2D): 3.2 cm RA A4 area: 15.1 cm2 Doppler Measurements & Calculations MV E max michael: 78.1 cm/sec Lat Peak E' Michael: 10.2 cm/sec Med Peak E' Michael: 4.8 cm/sec MV A max michael: 84.6 cm/sec E/E' lat: 7.7 E/E' med: 16.1 MV E/A: 0.92 Ao V2 max: 131.6 cm/sec LV V1 max: 122.7 cm/sec PA V2 max: 102.7 cm/sec Ao max P.9 mmHg LV V1 max P.0 mmHg Ao V2 mean: 82.5 cm/sec Ao mean P.1 mmHg Ao V2 VTI: 23.2 cm TR max michael: 236.0 cm/sec TR max P.3 mmHg Interpretation Summary Normal LV size. Mild concentric left ventricular hypertrophy. Left ventricular systolic function is normal. The estimated ejection fraction is 70 %. Stage 1 diastolic dysfunction. Ordering Physician: Shameka Huntley Referring Physician: Marvin Schroeder Performed By: Aubree Singletary RDCS, RVT
[2019-08-30] MEDS: 0.9% Saline Lock 10 ML Syringe IV (14:48)
--- NOTE | 2019-08-30 15:05 | RAD_ITS ---
STUDY: X-RAY CHEST REASON FOR EXAM: Male, 69 years old. 2 hour post left lung biopsy radiograph. TECHNIQUE: Portable AP inspiration and expiration views. COMPARISON: Comparison is made with prior study done earlier in the day. FINDINGS: There is no evidence on the two-hour post left lung biopsy radiograph. RAD/Chest Insp/Exp 2 View IMPRESSION: No evidence of pneumothorax on the delayed imaging. Electronically Signed: Fracisco Paredes, at 15:43 EST , Service support ,
[2019-08-30] MEDS: Atorvastatin Calcium 20 MG Tablet PO (22:02)
[2019-08-31] VITALS (9 sets, daily range): BP systolic 93–124; BP diastolic 59–74; PULSE 61–78; RESP 16–18; TEMP 36.6–37; O2SAT 84–96
[2019-08-31] MEDS: 0.9% Normal Saline 1,000 ML 100 ML IV (04:41)
[2019-08-31] MEDS: Enoxaparin 40 MG/0.4 ML Syringe SC (04:41)
[2019-08-31] MEDS: Ipratropium/Albuterol Sulfate 3 ML AMPUL.NEB INHALATION ×2 (06:53→11:52)
[2019-08-31 07:18] LABS: Anion Gap 6 (5-15); BUN 14 mg/dL (7-18); BUN/Creat Ratio 21.8 RATIO (10-20); Calcium,Total 8.4 mg/dL (8.5-10.1); Chloride 103 mmol/L (98-107); Creatinine, Serum 0.64 mg/dL (0.70-1.30); EST Glomerular Filtration Rate 132 mL/min (>60); Est Glom Filt Rate - Afr Amer 159 mL/min (>60); Glucose 134 mg/dL (74-106); Sodium Level 135 mmol/L (136-145)
[2019-08-31] MEDS: Tamsulosin HCl 0.4 MG Capsule PO (08:47)
[2019-08-31] MEDS: predniSONE 20 MG Tablet 40 MG PO (08:47)
[2019-08-31] MEDS: Famotidine 20 MG Tablet PO (08:49)
[2019-08-31] MEDS: Paroxetine 20 MG Tablet PO (08:49)
[2019-08-31] MEDS: Finasteride 5 MG Tablet PO (08:50)
[2019-08-31] MEDS: NYSTATIN 500,000 UNIT/5 ML UDC 500000 UNIT PO (08:51)
--- NOTE | 2019-08-31 09:44 | OT ---
provided handout and verbal ed on EC/WS strategies. rec reinforcement. Edu pt on performing AROM TE during day to maintain BUE strength and endurance. Pt verbalizes understanding
--- NOTE | 2019-08-31 10:10 | PCM.PN.PUL ---
Subjective: The patient was seen and examined at the bedside this morning. Events from the last 24 hours have been reviewed. The patient is currently afebrile, hemodynamically stable and maintaining appropriate oxygen saturations on room air. The patient denies the presence of resting shortness of breath or cough. He did undergo successful CT-guided lung biopsy yesterday. Objective: The patient's most recent lab work, culture data and imaging studies have all been personally reviewed. Respiratory viral panel was negative. Strep and urine Legionella antigens were negative. Blood cultures are pending. - Physical Exam Vitals/I&O's: Vital Signs Temp Pulse Resp BP Pulse Ox 98.6 F 61 16 124/74 H 94 08/31/19 04:00 08/31/19 07:52 08/31/19 08:11 08/31/19 04:00 08/31/19 08:00 Oxygen Flow Rate (L/min) [5] 2 Oxygen Flow Rate (L/min) [4] 2 Oxygen Flow Rate (L/min) [3] 2 Oxygen Flow Rate (L/min) [2] 2 Oxygen Flow Rate (L/min) [1 ( 2 Initial Baseline)] Oxygen Flow Rate (L/min) 2 Oxygen Delivery Method [5] Nasal Cannula Oxygen Delivery Method [4] Nasal Cannula Oxygen Delivery Method [3] Nasal Cannula Oxygen Delivery Method [2] Nasal Cannula Oxygen Delivery Method [1 ( Nasal Cannula Initial Baseline)] Oxygen Delivery Method Room Air Weight: 146 lb 13.246 oz Body Mass Index (BMI) 21.0 Orthostatic Vital Signs Start: 08/29/19 22:17 Freq: q24h Status: Active Protocol: Activity Type Activity Date Activity User E-Sign Co-Sign Detail Recorded Client Recorded Date Recorded By Document 08/31/19 04:00 CM [id number] 08/31/19 04:13 CM 08/31/19 04:00 Orthostatic Vitals Standing -Blood Pressure (90/60-120/80) 93/59 L -Extremity Use Right Arm -Pulse Rate (60-100) 78 Sitting -Blood Pressure (90/60-120/80) 111/71 -Extremity Use Right Arm -Pulse Rate (60-100) 75 Lying -Blood Pressure (90/60-120/80) 124/74 H -Extremity Use Right Arm -Pulse Rate (60-100) 67 Intake and Output for Last 24 Hours 08/29/19 08/30/19 08/31/19 23:59 23:59 23:59 Intake Total 1190.42 / 1190.42 3106.66 / 3106.66 0 / 0 Output Total 1750 / 1750 500 / 500 Balance 1190.42 / 1190.42 1356.66 / 1356.66 -500 / -500 General: Alert, Cooperative, No apparent distress HEENT: Atraumatic, PERRLA, Normocephalic Oral: No Gingival or Mucosal Lesions/ Ulcerations Neck: Supple, No Nodes, Trachea Midline Lungs: No rhonchi, No wheeze, No rales, Diminished Cardiovascular: Regular rate, Regular Rhythm, Normal S1, Normal S2, No murmurs Abdomen: Bowel Sounds Present, Soft, Non Tender Extremities: No clubbing, No cyanosis, No edema Musculoskeletal: No Tenderness to Palpation of Joints or Extremities, No Muscle Wasting Lymphatic: No Cervical, Supraclavicular, or Inguinal Adenopathy Neurological: Cranial nerves II-XII grossly intact, Neuro grossly intact Psych/Mental Status: Normal Affect, Appropriate Labs (Last 48 Hours) 08/29/19 08/29/19 08/29/19 14:30 14:30 15:25 WBC 10.5 RBC 4.78 Hgb 15.4 Hct 44.3 MCV 92.7 MCH 32.2 H MCHC 34.8 RDW Std Deviation 41.0 RDW Coeff of [place] 11.9 Plt Count 264 MPV 9.0 Immature Gran % (Auto) 0.500 Neut % (Auto) 79.5 H Lymph % (Auto) 7.[address] [place] % (Auto) 12.4 H Eos % (Auto) 0.1 Baso % (Auto) 0.2 Absolute Neuts (auto) 8.4 H Absolute Lymphs (auto) 0.77 L Nucleated RBC % 0 PT INR APTT Sodium 127 L Potassium 3.9 Chloride 93 L Carbon Dioxide 27.0 Anion Gap 7 BUN 21 H Creatinine 0.87 Estim Creat Clear Calc 83.91 Est GFR (MDRD) Af Amer 112 Est GFR (MDRD) Non-Af 92 BUN/Creatinine Ratio 24.1 H Glucose 120 H Calcium 8.8 Magnesium Troponin I < 0.015 Urine Color Yellow Urine Clarity Clear Urine pH 6.0 Ur Specific [place] 1.015 Urine Protein 30 H Urine Glucose (UA) Normal Urine Ketones 15 H Urine Occult Blood 50 H Urine Nitrite Negative Urine Bilirubin Negative Urine Urobilinogen 1 H Ur Leukocyte Esterase 25 H Urine RBC 0-5 SEEN Urine WBC 0-5 SEEN Ur Squamous Epith Cells 0 SEEN Urine Bacteria RARE Urine Mucus 1+ 08/29/19 08/29/19 08/30/19 20:30 23:05 02:43 WBC 9.2 RBC 4.30 L Hgb 13.9 Hct 40.1 MCV 93.3 MCH 32.3 H MCHC 34.7 RDW Std Deviation 41.3 RDW Coeff of [place] 12.0 Plt Count 260 MPV 9.0 Immature Gran % (Auto) 0.500 Neut % (Auto) 72.0 H Lymph % (Auto) 13.[address] [place] % (Auto) 13.7 H Eos % (Auto) 0.3 Baso % (Auto) 0.1 Absolute Neuts (auto) 6.6 Absolute Lymphs (auto) 1.23 Nucleated RBC % 0 PT INR APTT Sodium Potassium Chloride Carbon Dioxide Anion Gap BUN Creatinine Estim Creat Clear Calc Est GFR (MDRD) Af Amer Est GFR (MDRD) Non-Af BUN/Creatinine Ratio Glucose Calcium Magnesium 2.2 Troponin I < 0.015 < 0.015 Urine Color Urine Clarity Urine pH Ur Specific [place] Urine Protein Urine Glucose (UA) Urine Ketones Urine Occult Blood Urine Nitrite Urine Bilirubin Urine Urobilinogen Ur Leukocyte Esterase Urine RBC Urine WBC Ur Squamous Epith Cells Urine Bacteria Urine Mucus 08/30/19 08/30/19 08/30/19 02:43 02:43 02:43 WBC RBC Hgb Hct MCV MCH MCHC RDW Std Deviation RDW Coeff of [place] Plt Count MPV Immature Gran % (Auto) Neut % (Auto) Lymph % (Auto) [place] % (Auto) Eos % (Auto) Baso % (Auto) Absolute Neuts (auto) Absolute Lymphs (auto) Nucleated RBC % PT 13.7 INR 1.1 APTT 35.2 Sodium 129 L Potassium 3.7 Chloride 94 L Carbon Dioxide 25.0 Anion Gap 10 BUN 16 Creatinine 0.85 Estim Creat Clear Calc 78.35 Est GFR (MDRD) Af Amer 115 Est GFR (MDRD) Non-Af 95 BUN/Creatinine Ratio 18.9 Glucose 99 Calcium 7.6 L Magnesium Troponin I < 0.015 Urine Color Urine Clarity Urine pH Ur Specific [place] Urine Protein Urine Glucose (UA) Urine Ketones Urine Occult Blood Urine Nitrite Urine Bilirubin Urine Urobilinogen Ur Leukocyte Esterase Urine RBC Urine WBC Ur Squamous Epith Cells Urine Bacteria Urine Mucus 08/31/19 06:23 WBC RBC Hgb Hct MCV MCH MCHC RDW Std Deviation RDW Coeff of [place] Plt Count MPV Immature Gran % (Auto) Neut % (Auto) Lymph % (Auto) [place] % (Auto) Eos % (Auto) Baso % (Auto) Absolute Neuts (auto) Absolute Lymphs (auto) Nucleated RBC % PT INR APTT Sodium 135 L Potassium 4.0 Chloride 103 Carbon Dioxide 26.0 Anion Gap 6 BUN 14 Creatinine 0.64 L Estim Creat Clear Calc 66.60 Est GFR (MDRD) Af Amer 159 Est GFR (MDRD) Non-Af 132 BUN/Creatinine Ratio 21.8 H Glucose 134 H Calcium 8.4 L Magnesium Troponin I Urine Color Urine Clarity Urine pH Ur Specific [place] Urine Protein Urine Glucose (UA) Urine Ketones Urine Occult Blood Urine Nitrite Urine Bilirubin Urine Urobilinogen Ur Leukocyte Esterase Urine RBC Urine WBC Ur Squamous Epith Cells Urine Bacteria Urine Mucus Microbiology 08/30/19 05:45 Mucosa - Nose Respiratory Panel (PCR) - Final 08/29/19 15:25 Interface Orders Legionella Antigen - Final 08/29/19 15:25 Interface Orders Streptococcus pneumoniae Antigen (M - Final Clinical Impression(s) from Imaging Studies Brain CT 08/29/19 13:56 IMPRESSION: Chronic involutional changes of the brain. No acute abnormalities. Electronically Signed: Fracisco Paredes, at 15:03 EST , Service support , Chest X-Ray 08/29/19 13:56 IMPRESSION: Infiltrate in the lateral aspect of the right lower lobe as well as increased markings in the left lower lobe. Follow-up is recommended. Electronically Signed: Fracisco Paredes, at 14:20 EST , Service support , Chest CT 08/29/19 17:07 IMPRESSION: Right middle lobe consolidation, consistent appearance with reported pneumonia. Left lower lobe 1.9 cm nodule, concerning for neoplasm. Biopsy is recommended. Bibasilar scarring. Moderate emphysema. Electronically Signed: Jad Mtz, at 18:06 EST Tel , Service support , ADDENDUM: 08/29/19 193 IMPRESSION: Right middle lobe consolidation, consistent appearance with reported pneumonia. Left lower lobe 1.9 cm nodule, concerning for neoplasm. Biopsy is recommended. Bibasilar scarring. Moderate emphysema. N.B. : The above information has been verbally conveyed by Jad Mtz to Dr. Gloria Sheppard MD, on 08/29/2019 19:25:05 (ET). Electronically Signed: Jad Mtz, at 18:06 EST Tel , Service support , Biopsy CT 08/30/19 05:55 IMPRESSION: 1. CT directed core needle biopsy of the left lower lobe pulmonary nodule using CT image guidance with image documentation as described. Pathology results are pending. 2. Conscious Sedation protocol utilized with independent monitoring. Electronically Signed: Fracisco Paredes, at 13:43 EST , Service support , Chest X-Ray 08/30/19 13:10 IMPRESSION: No evidence of pneumothorax following a left lung biopsy. Electronically Signed: Fracisco Paredes, at 15:42 EST , Service support , Chest X-Ray 08/30/19 15:05 IMPRESSION: No evidence of pneumothorax on the delayed imaging. Electronically Signed: Fracisco Paredes, at 15:43 EST , Service support , Current Medications Acetaminophen (Tylenol) 650 mg PO Q6H PRN PRN PRN Reason: Non-cardiac pain (mod-severe) Last Admin: 08/30/19 12:17 Dose: 650 mg Documented by: Hydrocodone Bitart/Acetaminophen ([place] 5mg-325mg) 1 - 2 tablet PO Q6H PRN PRN PRN Reason: Pain Score 4-10/10 Al Hydroxide/Mg Hydroxide (Mylanta Ii) 15 - 30 ml PO Q4H PRN PRN PRN Reason: INDIGESTION Albuterol Sulfate (Ventolin Aerosols) 2.5 mg INHALATION Q2H PRN PRN PRN Reason: dyspnea, wheezing Albuterol/Ipratropium (Duoneb) 3 ml INHALATION Q4HWA.RT [facility] Last Admin: 08/31/19 06:53 Dose: 3 ml Documented by: Atorvastatin Calcium (Lipitor) 20 mg PO QHS [facility] Last Admin: 08/30/19 22:02 Dose: 20 mg Documented by: Dextrose (D50w Syringe) 0 gm IV X1 PRN; Protocol PRN Reason: Hypoglycemia Enoxaparin Sodium (Lovenox) 40 mg SC DAILY@0600 [facility] Last Admin: 08/31/19 04:41 Dose: 40 mg Documented by: Famotidine (Pepcid) 20 mg PO BID [facility] Last Admin: 08/31/19 08:49 Dose: 20 mg Documented by: Finasteride (Proscar) 5 mg PO DAILY [facility] Last Admin: 08/31/19 08:50 Dose: 5 mg Documented by: Glucagon () 1 mg IM .X1 PRN PRN Reason: Hypoglycemia Guaifenesin (Robitussin) 20 ml PO Q4H PRN PRN PRN Reason: COUGH Hydralazine HCl (Apresoline Iv) 10 mg IV Q4H PRN PRN PRN Reason: SBP > 160 Azithromycin 500 mg/ Dextrose 255 mls @ 250 mls/hr IV Q24 [facility] Stop: 09/04/19 10:01 Last Infusion: 08/30/19 11:15 Dose: Infused Documented by: Ceftriaxone Sodium 2 gm/ (Sodium Chloride) 50 mls @ 100 mls/hr IV Q24 [facility] Stop: 09/06/19 10:01 Last Infusion: 08/30/19 10:03 Dose: Infused Documented by: Sodium Chloride () 1,000 mls @ 100 mls/hr IV .Q10H [facility] Last Admin: 08/31/19 04:41 Dose: 100 mls/hr Documented by: Magnesium Hydroxide (Milk Of Magnesia) 30 ml PO DAILY PRN PRN Reason: Constipation Melatonin (Melatonin) 3 mg PO QHS PRN PRN PRN Reason: INSOMNIA Morphine Sulfate () 1 - 2 mg IV Q4H PRN PRN PRN Reason: Pain Score 1-10/10 Nitroglycerin (Nitrostat) 0.4 mg SUBLINGUAL Q5M PRN PRN Reason: CARDIAC/CHEST PAIN Nutritional Formula (Lactose Free) (Ensure Enlive) 120 ml PO 4X/DAY [facility] Last Admin: 08/31/19 08:50 Dose: 120 ml Documented by: Nystatin (Nystatin) 500,000 unit PO 4X/DAY [facility] Last Admin: 08/31/19 08:51 Dose: 500,000 unit Documented by: Ondansetron HCl (Zofran) 4 mg IV Q8H PRN PRN PRN Reason: NAUSEA/VOMITING Paroxetine HCl (Paxil) 20 mg PO DAILY [facility] Last Admin: 08/31/19 08:49 Dose: 20 mg Documented by: Prednisone () 40 mg PO DAILY@0800 [facility] Last Admin: 08/31/19 08:47 Dose: 40 mg Documented by: Sodium Chloride () 10 - 40 ml IV UD PRN PRN Reason: SALINE FLUSH Last Admin: 08/30/19 14:48 Dose: 10 ml Documented by: Tamsulosin HCl (Flomax) 0.4 mg PO BID@0830,1730 [facility] Last Admin: 08/31/19 08:47 Dose: 0.4 mg Documented by: Throat Lozenges (Cepacol Sore Throat Lozenge) 1 lozenge MUCOUS MEM Q2H PRN PRN PRN Reason: Sore Throat/Cough Medical Necessity - Tobacco Use Smoking Status: Current every day smoker Tobacco Use: Cigarettes Assessment/Plan RECOMMENDATIONS: 1. Continue bronchodilators and antimicrobials, with plans to complete a 7-day treatment course. 2. Continue prednisone with plans for a 5-day burst. 3. Encourage incentive spirometer use and mobilize patient as tolerated. 4. Nicotine replacement therapy can be offered to the patient. 5. Perform walking oximetry study prior to consideration for discharge home. 6. 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 IMPRESSIONS: 1. Self-reported COPD with exacerbation secondary to community-acquired pneumonia Continue current supportive measures with bronchodilators and antimicrobials. The patient is currently maintaining appropriate oxygen saturations on room air. Perform walking oximetry study prior to consideration for discharge home. 2. Lung nodule The patient's CT chest incidentally made note of a left lower lobe 2 cm lung nodule, which of course would be worrisome in an individual with a smoking history such as this patient. The patient underwent CT-guided lung biopsy on August 30. The pathology results will need to be followed up upon his discharge from the hospital. 3. Continuous tobacco dependency Tobacco cessation counseling was provided. Nicotine replacement therapy can be offered to the patient while admitted to the hospital. This note was generated with [employer] dictation software. It may contain incorrect words, spelling, and punctuation that were not noted in checking the note before signing. Code Visit Inpatient E&M: 22190 Subs Hosp L2
--- NOTE | 2019-08-31 11:08 | PCM.DC ---
You will use the following diet at home:: No restrictions Discharge Activity: Return to Normal Activity Call your doctor if you observe: Shortness of breath, Dizziness, Fainting spells, Chest pain Allergies/Adverse Reactions: Allergies Sulfa (Sulfonamide Antibiotics) Allergy (Verified 08/29/19 12:58) Hives Medications to take at Discharge Simvastatin [Zocor] 40 mg PO QHS 07/18/17 Albuterol Inhaler [Ventolin Hfa] 2 puff INHALATION Q4H PRN PRN 08/29/19 Aspirin/Acetaminophen/Caffeine [Excedrin Migraine Caplet] 1 tab PO DAILY 08/29/19 Budesonide/Formoterol 160/4.5 [Symbicort 160/4.5 Mcg Inhaler (SP)] 2 puff INHALATION BID 08/29/19 Finasteride [Proscar] 5 mg PO DAILY 08/29/19 Ipratropium/Albuterol Sulfate [Duoneb] 3 ml INHALATION 4X/DAY 08/29/19 Omeprazole 20 mg PO DAILY 08/29/19 Paroxetine HCl 20 mg PO DAILY 08/29/19 Tiotropium [place] [Spiriva 18 MCG] 1 puff INHALATION DAILY 08/29/19 Amox/Clavulanate Tablet [Augmentin Tablet] 875 mg PO Q12H #10 tab 08/31/19 Nystatin 500,000 unit PO 4X/DAY 5 Days #20 dose 08/31/19 Tamsulosin HCl [Flomax] 0.4 mg PO BID@0830,1730 #30 cap 08/31/19 predniSONE tablet 40 mg PO DAILY@0800 4 Days #8 tab 08/31/19 The following prescriptions were given: Amox/Clavulanate Tablet [Augmentin Tablet] 875 mg PO Q12H #10 tab Transmission Status: Pending to [facility] Tamsulosin HCl [Flomax] 0.4 mg PO BID@0830,1730 #30 cap Transmission Status: Pending to [facility] Nystatin 500,000 unit PO 4X/DAY 5 Days #20 dose Transmission Status: Pending to [facility] predniSONE tablet 40 mg PO DAILY@0800 4 Days #8 tab [facility]: [facility] Primary Care Physician: Marvin Schroeder [Primary Care Provider] - Please follow up with your Primary Care Physician in: 1 Week Test Results: Test results from this visit will be discussed in further detail at your follow-up appointment, if applicable. Please Follow Up With: Hong Zaragoza DO When: 2 Weeks, call for appointment Please Follow Up With: Matt Jurado - Urology When: Call Monday for appt Proposed Discharge Date: 08/31/19
--- NOTE | 2019-08-31 11:13 | DS.PCM_ITS ---
Discharge Date and Diagnosis Date of Admission: 08/29/19 Date of Discharge: 08/31/19 - Primary Discharge Diagnosis 1. Acute community acquired left lower lobe pneumonia 2. Left lower lobe spiculated mass 3. Acute exacerbation of COPD 4. Oral thrush 5. Hyponatremia, secondary to hypovolemia as result of dehydration 6. Near syncope, secondary to orthostasis 7. Urinary retention, underlying BPH 8. Tobacco dependence 9. GERD 10. Hyperlipidemia Hospital Course and Treatment Imaging Results: Diagnostic Data Brain CT 08/29/19 13:56 IMPRESSION: Chronic involutional changes of the brain. No acute abnormalities. Electronically Signed: Fracisco Paredes, at 15:03 EST , Service support , Chest CT 08/29/19 17:07 IMPRESSION: Right middle lobe consolidation, consistent appearance with reported pneumonia. Left lower lobe 1.9 cm nodule, concerning for neoplasm. Biopsy is recommended. Bibasilar scarring. Moderate emphysema. Electronically Signed: Jad Mtz, at 18:06 EST Tel , Service support , ADDENDUM: 08/29/19 1932 IMPRESSION: Right middle lobe consolidation, consistent appearance with reported pneumonia. Left lower lobe 1.9 cm nodule, concerning for neoplasm. Biopsy is recommended. Bibasilar scarring. Moderate emphysema. N.B. : The above information has been verbally conveyed by Jad Mtz to Dr. Gloria Sheppard MD, on 08/29/2019 19:25:05 (ET). Electronically Signed: Jad Mtz, at 18:06 EST Tel , Service support , Biopsy CT 08/30/19 05:55 IMPRESSION: 1. CT directed core needle biopsy of the left lower lobe pulmonary nodule using CT image guidance with image documentation as described. Pathology results are pending. 2. Conscious Sedation protocol utilized with independent monitoring. Electronically Signed: Fracisco Paredes, at 13:43 EST , Service support , Chest X-Ray 08/30/19 15:05 IMPRESSION: No evidence of pneumothorax on the delayed imaging. Electronically Signed: Fracisco Paredes, at 15:43 EST , Service support , Dr. Zaragoza- Pulmonary Medicine Operations: None Procedures: 2-D Echocardiogram, - - Left lower lobe lung lesion CT-guided biopsy Summary of Care Provided: The patient is a 69 year old M admitted 08/29/2019 due to generalized weakness, near syncope, cough and headache. 1. Acute community acquired left lower lobe pneumonia-chest x-ray admission with infiltrate in the lateral aspect of the right lower lobe as well as increased markings in the left lower lobe. Urine for strep and Legionella negative. Patient unable to send sputum for culture. Fever resolved. No leukocytosis. Oxygen stable at rest on room air however walking pulse ox completed prior to discharge and patient's oxygen dropped to 84% with ambulation. He is ambulatory in the home and will require 2 L nasal cannula with ambulation. Discharge on Augmentin 875 mg p.o. twice daily. Follow-up with primary care provider in 1 week. 2. Left lower lobe spiculated mass-CT of chest showed left lower lobe 1.9 cm nodule, concerning for neoplasm. Patient underwent CT-guided biopsy this 08/30/2019. Patient will follow up with Dr. Zaragoza, pulmonary medicine in 2 weeks for biopsy results. 3. Acute exacerbation of COPD-respiratory panel negative. Prednisone 40 mg daily x5 days. Continue home inhaler regimen. 4. Oral thrush-continue nystatin 4 times daily x7 days. 5. Hyponatremia, suspect secondary to hypovolemia as result of dehydration- improving with hydration, trend BMP. 6. Near syncope, suspect secondary to orthostasis-troponin negative. EKG without acute changes. Orthostatic vitals positive. Patient received IV fluids. Echocardiogram demonstrated an EF of 70%, stage I diastolic dysfunction. 7. Urinary retention, underlying BPH-Flomax regimen increased to 0.4 mg twice daily, continue finasteride regimen. Alamo placed 08/30/2019 due to significant urinary retention. Patient given the option to remove catheter and attempt voiding trial prior to discharge or discharge home with Alamo catheter/leg bag in place and follow-up with primary urologist early next week. Patient opted to go home with catheter and follow-up with Dr. Jurado, urology next week. 8. Tobacco dependence-encouraged cessation. 9. GERD-continue PPI. 10. Hyperlipidemia- continue statin. General: Alert, Oriented x3, Cooperative HEENT: Atraumatic, PERRLA, EOMI, Normocephalic Neck: Supple, No JVD, Negative Carotid Bruits Lungs: Diminished, clear to auscultation Cardiovascular: Regular rate, Regular Rhythm, Normal S1, Normal S2, No murmurs Abdomen: Bowel Sounds Present, Soft, Non Tender, Non-Distended Extremities: No clubbing, No cyanosis, No edema, Capillary Refill Less than 3 Seconds Skin: No rashes, No breakdown Musculoskeletal: No Tenderness to Palpation of Joints or Extremities Neurological: Cranial nerves II-XII grossly intact, Neuro grossly intact Psych/Mental Status: Normal affect, appropriate Patient seen and examined prior to discharge. Physical assessment as noted above. Patient is stable for discharge with follow up recommendations as noted above. This patient was seen by KATH Gage under the supervision of Dr. Rosario. - Physical Exam Vitals/I&O's: Vital Signs Temp Pulse Resp BP Pulse Ox 97.9 F 68 16 109/65 93 08/31/19 10:00 08/31/19 10:00 08/31/19 10:00 08/31/19 10:00 08/31/19 10:00 Oxygen Flow Rate (L/min) [5] 2 Oxygen Flow Rate (L/min) [4] 2 Oxygen Flow Rate (L/min) [3] 2 Oxygen Flow Rate (L/min) [2] 2 Oxygen Flow Rate (L/min) [1 ( 2 Initial Baseline)] Oxygen Flow Rate (L/min) 2 Oxygen Delivery Method [5] Nasal Cannula Oxygen Delivery Method [4] Nasal Cannula Oxygen Delivery Method [3] Nasal Cannula Oxygen Delivery Method [2] Nasal Cannula Oxygen Delivery Method [1 ( Nasal Cannula Initial Baseline)] Oxygen Delivery Method Room Air Weight: 146 lb 13.246 oz Body Mass Index (BMI) 21.0 Orthostatic Vital Signs Start: 08/29/19 22:17 Freq: q24h Status: Active Protocol: Activity Type Activity Date Activity User E-Sign Co-Sign Detail Recorded Client Recorded Date Recorded By Document 08/31/19 04:00 CM [id number] 08/31/19 04:13 CM 08/31/19 04:00 Orthostatic Vitals Standing -Blood Pressure (90/60-120/80) 93/59 L -Extremity Use Right Arm -Pulse Rate (60-100) 78 Sitting -Blood Pressure (90/60-120/80) 111/71 -Extremity Use Right Arm -Pulse Rate (60-100) 75 Lying -Blood Pressure (90/60-120/80) 124/74 H -Extremity Use Right Arm -Pulse Rate (60-100) 67 Intake and Output for Last 24 Hours 08/29/19 08/30/19 08/31/19 23:59 23:59 23:59 Intake Total 1190.42 / 1190.42 3106.66 / 3106.66 600 / 600 Output Total 1750 / 1750 500 / 500 Balance 1190.42 / 1190.42 1356.66 / 1356.66 100 / 100 Microbiology Past 72 Hours 08/30/19 05:45 Mucosa - Nose Respiratory Panel (PCR) - Final 08/29/19 15:25 Interface Orders Legionella Antigen - Final 08/29/19 15:25 Interface Orders Streptococcus pneumoniae Antigen (M - Final Laboratory Results 08/31/19 06:23: Sodium 135 L, Potassium 4.0, Chloride 103, Carbon Dioxide 26.0, Anion Gap 6, BUN 14, Creatinine 0.64 L, Estim Creat Clear Calc 66.60, Est GFR (MDRD) Af Amer 159, Est GFR (MDRD) Non-Af 132, BUN/Creatinine Ratio 21.8 H, Glucose 134 H, Calcium 8.4 L Current Medications Acetaminophen (Tylenol) 650 mg PO Q6H PRN PRN PRN Reason: Non-cardiac pain (mod-severe) Last Admin: 08/30/19 12:17 Dose: 650 mg Documented by: Hydrocodone Bitart/Acetaminophen (Bunch 5mg-325mg) 1 - 2 tablet PO Q6H PRN PRN PRN Reason: Pain Score 4-10/10 Al Hydroxide/Mg Hydroxide (Mylanta Ii) 15 - 30 ml PO Q4H PRN PRN PRN Reason: INDIGESTION Albuterol Sulfate (Ventolin Aerosols) 2.5 mg INHALATION Q2H PRN PRN PRN Reason: dyspnea, wheezing Albuterol/Ipratropium (Duoneb) 3 ml INHALATION Q4HWA.RT [facility] Last Admin: 08/31/19 06:53 Dose: 3 ml Documented by: Atorvastatin Calcium (Lipitor) 20 mg PO QHS [facility] Last Admin: 08/30/19 22:02 Dose: 20 mg Documented by: Dextrose (D50w Syringe) 0 gm IV X1 PRN; Protocol PRN Reason: Hypoglycemia Enoxaparin Sodium (Lovenox) 40 mg SC DAILY@0600 [facility] Last Admin: 08/31/19 04:41 Dose: 40 mg Documented by: Famotidine (Pepcid) 20 mg PO BID [facility] Last Admin: 08/31/19 08:49 Dose: 20 mg Documented by: Finasteride (Proscar) 5 mg PO DAILY [facility] Last Admin: 08/31/19 08:50 Dose: 5 mg Documented by: Glucagon () 1 mg IM .X1 PRN PRN Reason: Hypoglycemia Guaifenesin (Robitussin) 20 ml PO Q4H PRN PRN PRN Reason: COUGH Hydralazine HCl (Apresoline Iv) 10 mg IV Q4H PRN PRN PRN Reason: SBP > 160 Azithromycin 500 mg/ Dextrose 255 mls @ 250 mls/hr IV Q24 [facility] Stop: 09/04/19 10:01 Last Admin: 08/31/19 10:36 Dose: 200 mls/hr Documented by: Ceftriaxone Sodium 2 gm/ (Sodium Chloride) 50 mls @ 100 mls/hr IV Q24 [facility] Stop: 09/06/19 10:01 Last Admin: 08/31/19 10:35 Dose: 100 mls/hr Documented by: Sodium Chloride () 1,000 mls @ 100 mls/hr IV .Q10H [facility] Last Infusion: 08/31/19 10:41 Dose: 0 mls/hr Documented by: Magnesium Hydroxide (Milk Of Magnesia) 30 ml PO DAILY PRN PRN Reason: Constipation Melatonin (Melatonin) 3 mg PO QHS PRN PRN PRN Reason: INSOMNIA Morphine Sulfate () 1 - 2 mg IV Q4H PRN PRN PRN Reason: Pain Score 1-10/10 Nitroglycerin (Nitrostat) 0.4 mg SUBLINGUAL Q5M PRN PRN Reason: CARDIAC/CHEST PAIN Nutritional Formula (Lactose Free) (Ensure Enlive) 120 ml PO 4X/DAY [facility] Last Admin: 08/31/19 08:50 Dose: 120 ml Documented by: Nystatin (Nystatin) 500,000 unit PO 4X/DAY [facility] Last Admin: 08/31/19 08:51 Dose: 500,000 unit Documented by: Ondansetron HCl (Zofran) 4 mg IV Q8H PRN PRN PRN Reason: NAUSEA/VOMITING Paroxetine HCl (Paxil) 20 mg PO DAILY [facility] Last Admin: 08/31/19 08:49 Dose: 20 mg Documented by: Prednisone () 40 mg PO DAILY@0800 [facility] Last Admin: 08/31/19 08:47 Dose: 40 mg Documented by: Sodium Chloride () 10 - 40 ml IV UD PRN PRN Reason: SALINE FLUSH Last Admin: 08/30/19 14:48 Dose: 10 ml Documented by: Tamsulosin HCl (Flomax) 0.4 mg PO BID@0830,1730 [facility] Last Admin: 08/31/19 08:47 Dose: 0.4 mg Documented by: Throat Lozenges (Cepacol Sore Throat Lozenge) 1 lozenge MUCOUS MEM Q2H PRN PRN PRN Reason: Sore Throat/Cough Discharge Diet: No Restrictions Discharge Activity: Return to Normal Activity Call your doctor if you observe: Shortness of breath, Dizziness, Fainting spells, Chest pain Home Medications: Medications to take at Discharge Simvastatin [Zocor] 40 mg PO QHS 07/18/17 Albuterol Inhaler [Ventolin Hfa] 2 puff INHALATION Q4H PRN PRN 08/29/19 Aspirin/Acetaminophen/Caffeine [Excedrin Migraine Caplet] 1 tab PO DAILY 08/29/19 Budesonide/Formoterol 160/4.5 [Symbicort 160/4.5 Mcg Inhaler (SP)] 2 puff INHALATION BID 08/29/19 Finasteride [Proscar] 5 mg PO DAILY 08/29/19 Ipratropium/Albuterol Sulfate [Duoneb] 3 ml INHALATION 4X/DAY 08/29/19 Omeprazole 20 mg PO DAILY 08/29/19 Paroxetine HCl 20 mg PO DAILY 08/29/19 Tiotropium [place] [Spiriva 18 MCG] 1 puff INHALATION DAILY 08/29/19 Amox/Clavulanate Tablet [Augmentin Tablet] 875 mg PO Q12H #10 tab 08/31/19 Nystatin 500,000 unit PO 4X/DAY 5 Days #20 dose 08/31/19 Tamsulosin HCl [Flomax] 0.4 mg PO BID@0830,1730 #30 cap 08/31/19 predniSONE tablet 40 mg PO DAILY@0800 4 Days #8 tab 08/31/19 Following Prescrptions Were Given to Patient: Amox/Clavulanate Tablet [Augmentin Tablet] 875 mg PO Q12H #10 tab Transmission Status: Pending to [id number] Tamsulosin HCl [Flomax] 0.4 mg PO BID@0830,1730 #30 cap Transmission Status: Pending to [id number] Nystatin 500,000 unit PO 4X/DAY 5 Days #20 dose Transmission Status: Pending to [facility] predniSONE tablet 40 mg PO DAILY@0800 4 Days #8 tab Transmission Status: Pending to [facility] Primary Care Physician: Marvin Schroeder [Primary Care Provider] - Please follow up with your Primary Care Physician in: 1 Week Please Follow Up With: Hong Zaragoza DO When: 2 Weeks, call for appointment Please Follow Up With: Matt Jurado - Urology When: Call Monday for appt Disposition: Home Minutes spent on discharge:: 35 Patient Condition:: Stable Medical Necessity - Tobacco Use Smoking Status: Current every day smoker Tobacco Use: Cigarettes Meaningful Use Info Meaningful Use Diagnoses (Choose all that apply): None applicable
--- NOTE | 2019-08-31 14:49 | NURSING ---
This nurse reviewed charting of SN Hina
--- NOTE | 2019-08-31 15:19 | NURSING ---
teaching given on homegoing instructions with robledo cath and leg back. pt up to br to dress. home o2 tank in room and ready for dc. slow steady gait obs. sob with exertion. pt's friend in and present for dc instructions. no questions voiced. will call for f/u on mon for 3 appts as directed.
== END 2019-08-31 14:00 | disposition home or self-care (01) | DRG 194 ==
LOC: ED 14:47 → PCU 22:59
PROVIDERS: Family Medicine; Nurse Practitioner Family; Admitting Provider Internal Medicine; Emergency Provider Emergency Medicine; Family Provider Family Medicine; PCP Family Medicine; Visit Provider Internal Medicine
DX: J18.9 Pneumonia, unspecified organism (principal); E87.1 Hypo-osmolality and hyponatremia; B37.0 Candidal stomatitis; J44.1 Chronic obstructive pulmonary disease with (acute) exacerbation; J44.0 Chronic obstructive pulmonary disease with (acute) lower respiratory infection; R91.8 Other nonspecific abnormal finding of lung field; R55 Syncope and collapse; E78.5 Hyperlipidemia, unspecified; N40.1 Benign prostatic hyperplasia with lower urinary tract symptoms; R33.8 Other retention of urine; K21.9 Gastro-esophageal reflux disease without esophagitis; F17.210 Nicotine dependence, cigarettes, uncomplicated; E86.1 Hypovolemia; E86.0 Dehydration
CPT/HCPCS: 36415; 70450; 71045; 71046; 71250; 77012; 80048; 81001; 83735; 84484; 85025; 85610; 85730; 87040; 87449; 87633; 88172; 88305; 88313; 88341; 88342; 93005; 93306; 94640; 97162; 97165; 99156; 99157; 99285; 99406; J7030; J7040; A4216; J0696

== ENCOUNTER → 2019-09-16 07:41 | Outpatient (CLI) | payer MEDICARE, OTHER, SELFPAY ==
[2019-09-06 10:54] VITALS: BMI 21.0
[2019-09-13 13:25] VITALS: BMI 21.0
--- NOTE | 2019-09-16 08:30 | PET_ITS ---
EXAMINATION: FDG PET CT INDICATIONS: A 69-year-old male with reported history of carcinoma of the lung presenting for initial staging examination. COMPARISON EXAMINATION: CT of the chest report dated 08/29/19. INDEX LESION SIZE SUV INTERPRETATION Left lower posteromedial lung-left lower lobe 18.0 mm (frame 162) 7.9 Fulfills quantitative criteria for viable neoplasm Left aquatic centre manager space 47.8 mm x 27.1 mm (frame 262) 25.6 Warrants further radiologic investigation, histopathologic analysis recommended Right lower anterolateral anterior hemithorax pulmonary parenchyma 33.4 mm (frame 167) 2.2 Most consistent with pneumonitis-interim morphologic improvement TECHNIQUE: Following the intravenous administration of 15.6 mCi of F-18 deoxyglucose via the left antecubital fossa, multiplanar image acquisitions of the neck, chest, abdomen and pelvis to level of mid thigh, obtained at one hour post radiopharmaceutical administration contemporaneously interpreted with the current CT of the neck, chest, abdomen and pelvis to level of mid thigh, dated 09/16/[address] of the chest report dated 08/29/19 reveal: SERUM GLUCOSE LEVEL: 101 mg/dl. HEIGHT: 70 inches. WEIGHT: 152 lbs. FINDINGS: 1. Focal increased glucose metabolism is defined in the left lower posteromedial lung-left lower lobe generating a calculated maximum standard uptake value of 7.9. The maximal axial diameter of the corresponding parenchymal density on review of CT of the chest dated 09/16/19 is 18.0 mm (AP). 2. A large focus of increased FDG concentration is demonstrated in the distribution of the left aquatic centre manager space rendering a calculated maximum standard uptake value of 25.6. The maximal axial diameter of the corresponding metabolic, morphologic abnormality on review of CT of the head and neck dated 09/16/19 is 47.8 mm (transverse) x 27.1 mm (AP). 3. Several foci of increased fluorine-labeled glucose uptake are noted in the right lower anterolateral hemithorax pulmonary parenchyma generating a calculated maximum standard uptake value of 2.2. The maximal axial diameter of the largest density on review of CT of the chest dated 09/16/19 is 33.4 mm (AP). Compared to CT of the chest dated110/29/18, the spatial distribution of the radiographic abnormality is decreased on the present examination. 4. Normal physiologic distribution of the radiopharmaceutical is apparent in the hepatic (2.1) and splenic parenchyma, both renal units, bladder and visualized intestinal tract. There is uniform distribution of the radiopharmaceutical concentration defined in the visualized cerebellar hemispheres and cerebral cortical structures.? Diffuse intestinal tract activity is noted throughout all four quadrants of the abdominal-pelvic retroperitoneum, mesentery consistent with normal physiologic distribution of the radiopharmaceutical. Prominent radiopharmaceutical concentration is defined in the left ventricular myocardium in conjunction with visualized prominent skeletal muscle distribution of radiopharmaceutical consistent with the pattern associated with failure to fast. (Varsha and Amanda, Journal of Nuclear Medicine Technology 31:3, 2003). Pertinent CT findings are as follows. CHEST: Emphysematous changes are noted in the bilateral upper-mid lung zones. There are no additional parenchymal densities-nodules defined in the right and left hemithorax demonstrating discernible, quantitatively significant increased FDG uptake. The noncalcified parenchymal density noted in the right lower posterior lung-right lower lobe is non-glucose avid. Atherosclerotic calcification is defined in the thoracic aorta without evidence of dilatation, aneurysm formation. Coronary arterial calcification is observed. Bilateral axillary soft tissue densities are ametabolic. ABDOMEN AND PELVIS: Atherosclerotic calcification is defined in the abdominal aorta without evidence of dilatation, aneurysm formation. Pelvic arterial calcification is observed. The prostate gland is prominent in size with dystrophic calcification without evidence of facilitated FDG uptake. Concentric hypertrophy of the urinary bladder wall is defined. Subcentimeter bilateral inguinal soft tissue densities with fatty hilus demonstrate no evidence of increased glucose metabolism. SKELETAL: Degenerative changes defined in the cervical, thoracic and lumbar spine demonstrate no evidence for glucose hypermetabolism. Diffuse demineralization is defined. PET/PET/CT Tumor Base -Thigh Init IMPRESSION: 1. ABNORMAL EXAMINATION INDICATIVE OF MALIGNANT-VIABLE NEOPLASM. 2. Increased FDG concentration defined in the left lower posteromedial lung-left lower lobe fulfills quantitative criteria for viable neoplasm and presumably is medical detail representative of the site of the patient?s recent histologically confirmed primary pulmonary malignancy. (Tulio et al, Annals of Internal Medicine, 138:724, 2003). 3. Asymmetric increased glucose concentration defined in the left aquatic centre manager space may be further investigated with CT of the neck with intravenous contrast and probable histopathologic analysis secondary to the quantitative degree of uptake. 4. Facilitated radiopharmaceutical concentration observed in the right lower anterolateral lung, right middle lobe likely represents an inflammatory process-pneumonitis. If neoplasm is a diagnostic consideration, histopathologic analysis is recommended. Electronic Signature Jesus Reynoso D.O. Electronically Signed: Jesus Reynoso DO at 23:16 EST Tel , Service support ,
== END ==
PROVIDERS: Family Provider Family Medicine; PCP Family Medicine; Referring Provider Nurse Practitioner Acute Care; Visit Provider Nurse Practitioner Acute Care
DX: R91.8 Other nonspecific abnormal finding of lung field (principal); C34.92 Malignant neoplasm of unspecified part of left bronchus or lung
CPT/HCPCS: 78815; A9552

== ENCOUNTER → 2019-09-27 09:52 | Outpatient (CLI) | payer MEDICARE, OTHER, SELFPAY ==
[2019-09-19 15:39] VITALS: BMI 21.7
--- NOTE | 2019-09-27 09:53 | MRI_ITS ---
STUDY: MRI BRAIN WITH AND WITHOUT CONTRAST REASON FOR EXAM: Male, [address]/PET TECHNIQUE: Standardized multiplanar fat and water weighted pulse sequences were obtained. DOTAREM 14 IV was administered for the contrast portion of the examination. COMPARISON: None. FINDINGS: Normal size of the ventricles and extra-axial spaces for the patient''s age. There are a few punctate scattered white matter lesions without mass effect or restricted diffusion.. Normal bilateral basal ganglia. Normal thalami. There is no extra-axial fluid accumulation. Normal flow voids within the major intracranial circulation suggesting patency by spin echo criteria. Normal venous enhancement. There is no enhancing intra-axial or extra-axial abnormality. Normal sella turcica, pituitary gland, infundibular stalk, optic chiasm and hypothalamus. Normal tectal plate and pineal gland. Normal midbrain, amaya and medulla. Normal cerebellum. Normal basal cisterns. Normal bilateral temporal bones. Normal bilateral internal auditory canals. There is fluid seen within the right mastoid air cells consistent with inflammatory disease No demonstrated orbital abnormality, within the constraints of a routine brain study. There is minor mucosal thickening of the maxillary and ethmoid sinuses.. Normal calvarium and skull base. There is a very large heterogeneously enhancing mass which appears to be localized to the deep lobe of the left parotid extending into the amphibian crewmember and vascular space likely neoplastic. Normal visualized upper cervical spine. MRI/Brain W/WO Contrast IMPRESSION: Mild periventricular white matter ischemic change without evidence for acute infarct. No evidence for brain metastasis. 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 Electronically Signed: Jad Sheridan MD at 18:17 EST , Service support ,
--- NOTE | 2019-09-27 09:53 | MRI_ITS ---
STUDY: MRI CERVICAL SPINE WITH AND WITHOUT CONTRAST REASON FOR EXAM: Male, 69 years old. Abnormal PET C/O DISCOMFORT AT BASE OF SKULL TECHNIQUE: Standardized fat and water weighted pulse sequences were obtained in the sagittal and axial following administration of DOTAREM 14 CC IV. COMPARISON: None FINDINGS: Normal foramen magnum and brainstem-cervical cord junction. Normal craniovertebral junction. Normal anterior atlantoaxial articulation. Normal odontoid process. Mild cervical kyphosis.. Normal vertebral bodies and posterior osseous elements. C2-3: Normal endplates. Normal disc height, signal and tiny central disc protrusion.. Normal central canal and intervertebral neural foramina. C3-4: Normal endplates. Normal disc height, signal and right posterolateral disc/osteophyte protrusion. Mild narrowing of the central canal. Severe right neuroforaminal stenosis. C4-5: Normal endplates. Normal disc height, signal and tiny central disc protrusion.. Normal central canal and intervertebral neural foramina. C5-6: Narrowed disc space and endplate spurring. Minor bulging disc osteophyte complex. Mild narrowing of the central canal. Severe bilateral neuroforaminal stenosis secondary to bony hypertrophy. C6-7: Narrowed disc space and endplate spurring. Minor bulging disc osteophyte complex. Mild narrowing of the central canal. Minor bilateral neural foraminal encroachment. C7-T1: Normal endplates. Normal disc height, signal and morphology. Normal central canal and intervertebral neural foramina. Normal cervical cord. Incidental finding of large left parapharyngeal mass MRI/Spine Cervical W/WO Contrast IMPRESSION: No evidence for acute fracture or bone metastases. 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
== END ==
PROVIDERS: Family Provider Family Medicine; PCP Family Medicine; Referring Provider Internal Medicine Medical Oncology; Visit Provider Internal Medicine Medical Oncology
DX: C34.32 Malignant neoplasm of lower lobe, left bronchus or lung (principal); R93.89 Abnormal findings on diagnostic imaging of other specified body structures
CPT/HCPCS: 70553; 72156; A9585

== ENCOUNTER → 2019-10-01 10:37 | Outpatient (CLI) | payer MEDICARE, OTHER, SELFPAY ==
[2019-09-06 10:54] VITALS: BMI 21.0
[2019-09-19 15:39] VITALS: BMI 21.7
--- NOTE | 2019-10-07 09:18 | PFT ---
INTRODUCTION: The patient is a 69-year-old male that presents for pulmonary function studies secondary to a diagnosis of COPD. Respiratory therapy reports good patient effort. Bronchodilators were used during testing. INTERPRETATION: Forced expiration spirometry demonstrates the presence of a very severe large airways obstructive ventilatory defect. There was a significant response to aerosolized bronchodilators noted, based upon change in FVC. Spirograms are of fair quality and do not plateau indicating slow emptying of the lungs. Body plethysmography was performed and reveals an elevated TLC and RV, indicative of underlying hyperinflation and air trapping. Diffusing capacity by single breath CO is reduced at 63% of predicted. IMPRESSION: Partially reversible very severe large airways obstructive ventilatory defect with associated hyperinflation, air trapping and mild reduction in diffusing capacity.
== END ==
PROVIDERS: Family Provider Family Medicine; PCP Family Medicine; Referring Provider Nurse Practitioner Acute Care; Visit Provider Nurse Practitioner Acute Care
DX: J44.9 Chronic obstructive pulmonary disease, unspecified (principal)
CPT/HCPCS: 94060; 94726; 94729

== ENCOUNTER 2019-10-30 05:21 | Emergency (ER) | payer MEDICARE, OTHER, SELFPAY ==
[2019-10-07 10:49] VITALS: BMI 21.9
[2019-10-30 05:21] VITALS: BP 151/94; PULSE 67; RESP 18; TEMP 36.8; O2SAT 92; BMI 22.3
--- NOTE | 2019-10-30 06:01 | CT_ITS ---
STUDY: CT SOFT TISSUE NECK WITH CONTRAST REASON FOR EXAM: Male, 69 years old. NECK PAIN AND SWELLING, S/P NECK BIOPSY OF LEFT YESTERDAY. MASS. LUNG CANCER RADIATION DOSAGE (If Supplied By Facility): CTDIvol = ( 15.75 ) mGy, DLP = ( 467.92 ) mGycm TECHNIQUE: The patient was scanned in a multi-detector CT scanner. High resolution transaxial imaging was performed following intravenous administration of IV 75mL Isovue-370. Sagittal and coronal images were reconstructed. Individualized dose optimization techniques were used for this CT. COMPARISON: MRI cervical spine with and without gadolinium 09/27/2019. FINDINGS: 5.1 x 2.4 x 3.8 cm TRV X AP X CC heterogenous enhancing soft tissue mass expanding the left stylomandibular tunnel, displacing the parapharyngeal fat medially and anteriorly, and displacing the carotid vessels posteriorly, difficult to separate from both the more lateral parotid gland, and the more anterior medial pterygoid muscle, not appreciably changed in size compared to the 09/27/2019 MRI. No hematoma or active bleeding. No evidence of complication from the recent biopsy. Thyroid, submandibular, and right parotid glands unremarkable. Atherosclerosis of the bilateral CCA bifurcations but with no high-grade ICA narrowing. Prominent nasopharyngeal soft tissue. No focal suspicious mucosal mass. The epiglottis, hypopharynx, glottis, and subglottis are unremarkable. The retropharyngeal and prevertebral spaces are unremarkable. No acute osseous and amounted. Mild mucosal thickening and a small amount of fluid in the left maxillary and ethmoid sinuses, and within a left papito bullosa. Opacification of the majority of the right mastoid air cells, unchanged. Moderate emphysema partially visible lung apices. Degenerative changes cervical spine. CT/Soft Tissue Neck WITH Contrast IMPRESSION: Besides the left neck mass, which is not significantly changed compared to the prior MRI, no etiology for neck swelling is identified. No hematoma or abscess or evidence of complication from the biopsy. Emphysema, atherosclerosis, prominent nasopharyngeal soft tissue and other chronic findings as above. Electronically Signed: Mark Alexander, at 7:43 EST Tel , Service support ,
[2019-10-30] MEDS: Morphine 4 MG/ML Syringe IV (06:14)
[2019-10-30 06:32] LABS: Absolute Neutrophil Count 6.2 X10^3/uL (2.0-7.7); Basophil# 0.02 X10^3/uL; Basophil% 0.2 % (0-1); Eosinophil# 0.08 X10^3/uL; Eosinophils% 0.9 % (0-5); Hemoglobin 14.6 g/dL (13.0-16.5); Lymphocyte % 18.5 % (19-41); Mean Corp Hgb Conc 32.4 g/dL (32-36); Mean Corpuscular Hgb 31.7 pg (27.0-32.0); Mean Corpuscular Volume 97.6 fL (80-94); Mean Platelet Vol. 8.5 fl (6.2-12.0); Monocyte# 0.74 X10^3/uL; Monocyte% 8.5 % (0-10); NRBC Flagged by Analyzer 0 % (0-5); Neutrophil # 6.19 X10^3/uL (2.7-7.7); Neutrophil % 71.6 % (47-70); Platelet Count 340 K/mm3 (150-450); RBC Distribution Width CV 13.2 % (11.6-14.6); RBC Distribution Width SD 46.5 fl (35.1-43.9); Red Blood Count 4.61 M/mm3 (4.6-6.2); White Blood Count 8.7 K/mm3 (4.4-11.0)
[2019-10-30 06:35] LABS: Anion Gap 5 (5-15); BUN 14 mg/dL (7-18); Calcium,Total 8.5 mg/dL (8.5-10.1); Chloride 107 mmol/L (98-107); EST Glomerular Filtration Rate 79 mL/min (>60); Est Glom Filt Rate - Afr Amer 95 mL/min (>60); Glucose 102 mg/dL (74-106); Potassium 3.8 mmol/L (3.5-5.1); Sodium Level 140 mmol/L (136-145)
--- NOTE | 2019-10-30 07:08 | ED.VIS.GEN ---
History of Present Illness Chief Complaint: Other, Pain/Inj Informant: Patient Onset: Yesterday Narrative: Patient is a 69-year-old male with known history of small cell carcinoma of the lungs presenting with neck swelling after a biopsy from his neck yesterday. This was performed in [place] at [facility]. Patient states he had a lot of pain from the biopsy site. Is on his left lateral neck. He has had increased swelling and he feels that there is a crackling sensation next to his ear. Patient is not having any difficulty swallowing but he does feel that there is a little bit of a catch when he swallows. He has been able to eat and drink. He was not given anything for pain. He denies any other complaints at this time. He is not currently on any chemotherapy or radiation. He does not take any anticoagulation. Has not had any bleeding. Past Medical History - Allergies and Home Meds Allergies/Adverse Reactions: Allergies Sulfa (Sulfonamide Antibiotics) Allergy (Verified 10/07/19 10:44) Hives Primary Care Physician: Marvin Schroeder [Primary Care Provider] - Past Medical History: - - Cancer, neck mass, hypertension Surgical History: noncontributory Lives: Spouse/ Significant Other Smoking Status: Current every day smoker Review of Systems General: Denies: Chills, Fever, Sweats Eyes: Denies: Visual changes - bilaterally, Diplopia ENT: Reports: - - Left neck pain and swelling. Denies: Rhinorrhea, Sore throat Cardiovascular: Denies: Chest pain, Palpitations Respiratory: Denies: Dyspnea, Cough, Dyspnea on exertion Gastrointestinal: Denies: Abdominal pain, Nausea, Vomiting, Diarrhea, Melena, Hematochezia Genitourinary: Denies: Dysuria, Hematuria, Frequency Musculoskeletal: Denies: Back pain, Extremity Pain Skin: Denies: Rash, Wounds Neurological: Denies: Headache, Weakness, Numbness Physical Exam Vital Signs/Narrative: Vital Signs Temp Pulse Resp BP Pulse Ox 10/30/19 05:21 98.3 F 67 18 151/94 H 92 Inital Vital Signs reviewed: Yes General: Well nourished, Well developed, No Acute Distress Head: Normocephalic, Atraumatic Eyes: Perrl, EOMI ENT: Moist mucous membranes, No rhinorrhea, TM's clear. Negative for: Sinus tenderness Neck: Supple, Nontender, No JVD, - - Patient has approximately 3 cm to centimeter area of swelling at the angle of the mandible of the left neck. There are small puncture wounds consistent with his biopsy yesterday. There is no overlying erythema. There is no associated crepitus, erythema or fluctuance. There is no pulsatile mass felt. Mild tenderness to palpation. Cardiovascular: Regular rate, Regular rhythm, No murmurs Respiratory: No distress, CTA bilaterally, Chest nontender Abdomen: Soft, Nontender, Nondistended, Normal bowel sounds Back: Nontender, Normal Inspection Extremities: Nontender, No edema Skin: Normal color, No rash. Negative for: Rash, Trauma Neurological: Alert, Oriented x3, Cranial nerves II-XII grossly intact, Normal Strength, Normal Sensation Psychological: Normal affect, Normal Mood Diagnostic/Tx/Re-eval Laboratory Results - last 24 hr 10/30/19 10/30/19 06:13 06:13 WBC 8.7 RBC 4.61 Hgb 14.6 Hct 45.0 MCV 97.6 H MCH 31.7 MCHC 32.4 RDW Std Deviation 46.5 H RDW Coeff of Vashti 13.2 Plt Count 340 MPV 8.5 Immature Gran % (Auto) 0.300 Neut % (Auto) 71.6 H Lymph % (Auto) 18.5 L Baldwin % (Auto) 8.5 Eos % (Auto) 0.9 Baso % (Auto) 0.2 Absolute Neuts (auto) 6.2 Absolute Lymphs (auto) 1.60 Nucleated RBC % 0 Sodium 140 Potassium 3.8 Chloride 107 Carbon Dioxide 28.0 Anion Gap 5 BUN 14 Creatinine 1.00 Estim Creat Clear Calc 70.50 Est GFR (MDRD) Af Amer 95 Est GFR (MDRD) Non-Af 79 BUN/Creatinine Ratio 14.0 Glucose 102 Calcium 8.5 - Medical Decision Making Patient is evaluated for yesterday. He appears nontoxic in no acute distress. Vital signs are normal except for mild hypertension. He is handling his secretions and speaking easily. Airway is intact. CT soft tissue neck is obtained to look for signs of a deeper hematoma, abscess or other cause of his neck swelling. CT shows a stable left neck mass with no significant change and no etiology of neck swelling is identified. There is no hematoma or abscess. There is no obvious complication from the biopsy. Likely patient is having some localized tenderness secondary to the biopsy itself. He is given morphine in the ER for pain control. He will be discharged home with instructions take ibuprofen as well as a short course of [place] for pain control secondary to his biopsy. Patient has a follow-up appointment tomorrow with his oncologist. Patient is counseled on signs and symptoms requiring return to the emergency room. Patient verbalizes agreement and understand this plan. Patient discharged home in stable and improved condition. ED Disposition - Plan for ED Patient: Disposition: Home or Assisted Living Diagnosis: Neck pain on left side Prescriptions: Hydrocodone/Acetaminophen [[place] 5-325 Tablet] 1 each PO Q8H PRN PRN #6 tablet PRN Reason: Pain Score 6-10/10 Transmission Status: Sent to [id number] Referrals: Marvin Schroeder [Primary Care Provider] - Additional Instructions: Take ibuprofen as needed for pain. You been given a short course of [place] for breakthrough pain. This can cause constipation she might want to take a stool softener with it. There is not seem to be any infection, hematoma or other complication from the biopsy based on CT today. Please follow-up with your doctors as scheduled. Return with any worsening symptoms especially difficulty breathing or swallowing.
[2019-10-30 08:15] VITALS: BP 148/81; PULSE 62; RESP 16; O2SAT 94
== END 2019-10-30 08:27 | disposition home or self-care (01) ==
PROVIDERS: Emergency Provider Emergency Medicine; PCP Family Medicine
DX: M54.2 Cervicalgia (principal); R22.1 Localized swelling, mass and lump, neck; C34.90 Malignant neoplasm of unspecified part of unspecified bronchus or lung; I10 Essential (primary) hypertension; F17.200 Nicotine dependence, unspecified, uncomplicated; Z79.82 Long term (current) use of aspirin; Z79.899 Other long term (current) drug therapy; Z88.2 Allergy status to sulfonamides
CPT/HCPCS: 70491; 80048; 85025; 96374; 99283; Q9967; A4216

== ENCOUNTER 2020-08-12 09:00 | Outpatient (RCR) | payer MEDICARE, OTHER, SELFPAY ==
[2020-03-31 12:58] VITALS: BMI 22.0
[2020-04-15 07:55] VITALS: BMI 22.0
[2020-04-15 13:48] VITALS: BMI 21.8
--- NOTE | 2020-04-22 15:00 | SOAP_ITS ---
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 The Patient denies any overt signs and symptoms of aspiration, though does report intermittent coughing with frequent talking. He denies any unintentional weight loss, and denies any issues with appetite or early satiety (feeling full after few bites). He reports recent onset of hypogeusia (reduced taste) over the last week or so; reports fluctuating xerostomia (dry mouth); and reports mild fluctuating odynophagia (pain during swallow) between 0-3/10. He denies issues with diurnal sialorrhea (drooling during the daytime); denies any symptoms associate with trismus; denies issues with reflux / heartburn, globus sensation, post prandial substernal discomfort, or feelings of bolus stasis. The patient has an approximate [id number] smoking history, and continues to smoke approximately 1/2 a pack per day, and is actively trying to quit; he does harbor quite a lot of guilt with his inability to do so independently. 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 status post left parotidectomy with left parapharyngeal space mass resection and left selective neck dissection of level 2; stage I non-small cell lung cancer involving the left lower lobe status post SBRT (12/10/2019 - 12/18/2019); chronic obstructive pulmonary disease, history of tumor removal, benign prostatic hyperplasia, depression, gastroesophageal reflux disease, hyperlipidemia, hypertension PREVIOUS MODIFIED BARIUM SWALLOW STUDY: None RESULTS OF THE EVALUATION: The Patient presents with mild oropharyngeal dysphagia pathologic stage III (pT3 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 FUNCTIONAL STATUS ASSESSMENT RESULTS: KARNOFSKY PERFORMANCE SCALE INDEX: KARNOFSKY SCORE: 70 SCORE DESCRIPTION: cares for self; unable to carry on normal activity or to do active work; unable to work; able to live at home and care for most personal needs; varying amount of assistance needed. ECOG PERFORMANCE STATUS SCORE: ECOG SCORE: 1 SCORE CRITERIA: symptomatic but completely ambulatory SCORE DESCRIPTION: restricted in physically strenuous activity but ambulatory and able to carry out work of a light or sedentary nature. For example, light housework, office work. SUPPLEMENTARY DYSPHAGIA ASSESSMENT RESULTS (SCALES / PROM): WORLD HEALTH ORGANIZATION (WHO) ORAL MUCOSITIS SCALE: WHO ORAL MUCOSITIS SCALE GRADE: grade 0 WHO ORAL MUCOSITIS SCALE GRADE DESCRIPTION: no objective findings, function irrelevant RTOG RADIATION MORBIDITY SCORING CRITERIA FOR XEROSTOMIA: ACUTE REACTIONS: grade I GRADE DESCRIPTION: mild mouth dryness; slightly thickened saliva; may have slightly altered taste, such as metallic taste; changes are not reflected by alteration in baseline feeding SIALORRHEA SCORING SCALE (SSS): SSS SCORE: 10/17 SSS DESCRIPTION: dry, never drools SCALE OF SUBJECTIVE TOTAL TASTE ACUITY (STTA): STTA GRADE: grade I STTA GRADE DESCRIPTION: mild loss of taste acuity, but not inconvenient in daily life; no diet changes INTER-INCISOR DISTANCE (IID) AVERAGE IID: >4 cm IID GRADE: grade 0 IID GRADE DESCRIPTION: no symptoms of OSMF; no trismus PERFORMANCE STATUS SCALE FOR HEAD & NECK CANCER PATIENTS (PSS-HN): NORMALCY OF DIET: 100 ? full diet (no restrictions) PUBLIC EATIN ? no restriction of place, food, or company UNDERSTANDABILITY OF SPEECH: 100 ? always understandable PSS-HN TOTAL SCORE: 300/300 TOTAL DYSPHAGIA RISK SCORE (TDRS): T-CLASSIFICATION: 4 (T3 or T4) WEIGHT LOSS BASELINE: 0 (stable) CONCOMITANT CHEMORADIATION: 0 (no) ACCELERATED RADIOTHERAPY: 0 (no) BILATERAL NECK IRRADIATION: 0 (no) PRIMARY TUMOR SITE: 7 (oropharynx) TDRS RISK SCORE: 11 TDRS RISK CATEGORY: intermediate risk (TDRS = 10 ? 18) ORAL MOTOR / MODIFIED CRANIAL NERVE ASSESSMENT: TRIGEMINAL NERVE (CNV): abnormal; left posterior facial hypoesthesia FACIAL NERVE (CNVII): appears grossly intact GLOSSOPHARYNGEAL NERVE (CNIX): appears grossly intact VAGUS NERVE (CNX): appears grossly intact HYPOGLOSSAL NERVE (CNXII): appears grossly intact DENTITION: upper dentures in place, adequate fit; edentulous lower status ORAL MUCOSA / GINGIVA: appears grossly intact SALIVATION: mild xerostomia (dry mouth) COUGH SUFFICIENCY: appropriate volitional cough intensity VOCAL QUALITY: vocal functioning appears grossly intact; lower vocal intensity CLINICAL ASSESSMENT OF SWALLOW FUNCTION (QUANTITATIVE): REPETITIVE SALIVA SWALLOWING TEST (RSST): RSST RESULT: pass RSST DESCRIPTION: able to elicit 2 dry swallows within 30 seconds. 1OZ WATER SWALLOWING TEST (1OZ WST): 1OZ WST RESULTS: normal ? 1 (of 5) 1OZ WST DESCRIPTION: single swallow without coughing during ingestion DRINKING EPISODES: none 3OZ WATER SWALLOWING TEST (3OZ WST): 3OZ WST RESULTS: normal DRINKING EPISODES: none ZAMBRANO ASSESSMENT OF SWALLOWING ABILITY ? CANCER (MASA-C): MASA ASPIRATION SEVERITY SCORE: 185 MASA SEVERITY SCORE DESCRIPTION: mild impairment MASA-C DYSPHAGIA RISK RATING: possible; lowered probability of disorder, requiring ongoing review and monitoring CLINICAL ASSESSMENT OF SWALLOW FUNCTION (QUALITATIVE): ORAL PREPARATORY PHASE: competent bolus manipulation without fragmented swallowing (piecemeal deglutition); sufficient anterior oral containment during manipulation; preserved management of breathing / bolus formation without disrupted E ? S ? E pattern ORAL TRANSITIONAL PHASE: no signs of transitional incompetence; no signs of bolus consolidation impairments; no signs or symptoms of premature posterior bolus loss; PHARYNGEAL PHASE: sufficient hyolaryngeal excursion upon digital palpation; no obvious findings suggestive of pharyngeal phase delay / dyssynchrony; no subjective signs of pharyngeal dysmotility; no subjective signs of velopharyngeal impairments; intermittent coughing on saliva towards end of assessment, states that this occasionally happens; reports fluctuating odynophagia which complicates intake. ESOPHAGEAL PHASE: esophageal phase appears unremarkable CLINICAL ASSESSMENT OF SWALLOW FUNCTION (SEVERITY GRADING): SWALLOWING PERFORMANCE SCALE (SPS): 3 (mild) SPS SCORE DESCRIPTION: mild dysfunction in oral or pharyngeal stage; requires modified diet without need for therapeutic swallowing precautions. INTERVENTION CONSIDERATIONS AND RECOMMENDATIONS: I cannot definitively rule out silent aspiration at bedside; would consider objective assessment of the oropharyngeal swallow function if silent aspiration is suspected (no current clinical suspicions). The Patient is at higher risk of silent aspiration secondary to the diagnosis of chronic obstructive pulmonary disease (COPD). I will recommend a repeat modified barium swallow study within 1-2 months post chemoradiation to further assess the Patients oropharyngeal swallow function and identify any post radiation changes in the oropharyngeal physiology, as the patient is at higher risk for continual changes and possible decline in swallow functioning / dysphagia severity throughout the chemoradiation intervention cycle; RECOMMENDATIONS FOR INTERVENTION: The Patient requires intensive skilled speech-language intervention targeting diet texture management and training / implementation of recommended compensatory strategies; training and implementation of a Trismus based exercise program to promote improved (carmelo-irradiation) and sustained (post- irradiation) mandibular functioning; development, training and implementation of a home based prophylactic swallowing exercise program to promote the highest level of preserved post-irradiation swallow functioning; Patient / caregiver education regarding carmelo and post-irradiation dysphagia and associated symptomology; Patient and caregiver education regarding dysphagia associated with the diagnosis of chronic obstructive pulmonary disease (COPD); POST ASSESSMENT EDUCATION: The results and recommendations were discussed with the Patient immediately following completion of the assessment, with the Patient verbalizing understanding and agreement with all recommendations and education provided. We discussed the Patients elevated risk for continual changes and possible decline in swallow functioning / dysphagia severity throughout the radiation cycle; the Patient would benefit from continued monitoring across all domains throughout irradiation therapy including post irradiation.We discussed recommendations for prophylactic oropharyngeal strengthening / range of motion exercises to reduce the effects of carmelo and post radiation induced oropharyngeal dysphagia associated with head and neck cancer, with handouts provided outlining the recommended exercises; further / continual training is highly indicated to ensure proper execution and maintenance to the program.We discussed recommendations for mandibular range of motion stretching and exercise to reduce the effects of trismus and facilitate improved / maintained mandibular functioning, with handouts provided outlining the recommended exercises; further / continual training is indicated to ensure proper execution and maintenance to the program. I provided brief overview of signs and symptoms of aspiration, with recommendations for the Patient to further discuss symptoms with the Patients primary care provider. DIET TEXTURE RECOMMENDATIONS: Will recommend a regular textured (IDDSI: 7), thin liquid diet (IDDSI: 0) diet RECOMMENDED COMPENSATORY STRATEGIES: Reduced bolus volume / rate of ingestion, seated upright at 90 degrees during PO intake, remain upright for 30-60 minutes post meal (GERD precaution) FUNCTIONAL OUTCOMES: OUTCOME 1: the Patient will tolerate the least restrictive means of nutrition to facilitate adequate hydration / nutrition with optimum safety and efficiency of swallowing function during P.O. intake without overt signs and symptoms of aspiration. OUTCOME 2: the Patient will demonstrate and utilize recommended mandibular range of motion stretching and exercise within the Patients clinical and home based program to improve and maintain overall mandibular functioning and oral preparatory functioning reducing the effects of trismus, with minimal cueing and prompting provide by the clinician, across 2 out of 3 sessions. OUTCOME 3: the Patient will demonstrate and utilize recommended oropharyngeal range of motion exercise within the Patients clinical and home based program to improve and maintain overall oropharyngeal functioning and reducing the effects of post-irradiation dysphagia, with minimal cueing and prompting provide by the clinician, across 2 out of 3 sessions. OUTCOME 4: the Patient will participate in continual Patient / Patient caregiver education regarding carmelo and post-irradiation dysphagia and associated symptomology, and dysphagia associated with chronic obstructive pulmonary disease to facilitate improved awareness and insight into the Patients current and anticipated dysphagia related complications and potential impact on the Patients overall medical stability. OUTCOME 5: the Patient will participate in a Modified Barium Swallow (MBS) study to objectively assess the Patient?s oropharyngeal swallowing function, to determine the least restrictive means of nutrition, to objectively assess the effectiveness of previously identified strategies / precautions, and to identify appropriate intervention approaches / strategies to implement during treatment sessions at the supervised level. OUTCOME 6: goal adjustment as needed post MBS Viraj Claire M.A., MARTIN-LOOM OPERATOR APPRENTICE, CBIS MBSImP Certified, LSVT Certified [facility] Speech-Language Pathology Department Email: [email or web address]
== END 2020-08-12 19:00 | disposition home or self-care (01) ==
LOC: SP 09:00
PROVIDERS: PCP Family Medicine; Referring Provider Student in an Organized Health Care Education/Training Program; Visit Provider Student in an Organized Health Care Education/Training Program
DX: C07 Malignant neoplasm of parotid gland (principal)
CPT/HCPCS: 92526; 92610

== ENCOUNTER 2020-12-19 10:57 | Outpatient (RCR) | payer MEDICARE, SELFPAY ==
[2020-03-31 12:58] VITALS: BMI 22.0
[2020-04-15 13:48] VITALS: BMI 21.8
[2020-12-17] MEDS: COVID-19 VACC, MRNA(PFIZER)/PF 30 MCG/0.3 ML SYRINGE IM (11:41)
[2021-01-07] MEDS: COVID-19 VACC, MRNA(PFIZER)/PF 30 MCG/0.3 ML SYRINGE IM (11:21)
== END 2021-03-16 23:59 ==
LOC: IMMUN 10:57
PROVIDERS: PCP Family Medicine; Visit Provider Family Medicine
DX: Z23 Encounter for immunization (principal)
CPT/HCPCS: 0001A; 0002A; 91300

== ENCOUNTER → 2021-04-06 12:49 | Outpatient (CLI) | payer MEDICARE, OTHER, SELFPAY ==
[2020-03-31 12:58] VITALS: BMI 22.0
[2021-01-05 09:50] VITALS: BMI 20.4
--- NOTE | 2021-04-06 14:06 | SP.MBSS_ITS ---
Modified Barium Swallow - Patient Information Study Date: 04/06/21 Study Time: 13:00 Direct Billable Minutes: 120 Total Minutes procedure & reportin Diagnosis: Myoepithelial carcinoma of parotid gland (C07) Referring Physician: Jose Field Reason for Referral: Objectively assess aspiration risk and swallow function approximately 10 months post radiation therapy. 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 From 04/13/2020 - 05/27/2020 he received adjuvant radiation therapy. The patient participated in outpatient speech therapy from 04/22/2020 to 08/12/2020 to address dysphagia related to radiation therapy to treat carcinoma of the left parapharyngeal space/parotid gland s/p left parotidectomy with left parapharyngeal space mass resection and left selective neck dissection. During therapy, the pt was trained in oropharyngeal and trismus exercise program. Additionally, speech therapy addressed symptoms of radiation that impact swallow function, including dysgeusia, xerostomia, and odynophagia. The pt denies difficulty swallowing at this time; however, outpatient speech therapist recommended follow-up MBS study to monitor swallow function post radiation. Current Diet Ordered: Regular Textures / Thin Liquids Dentition: WNL Mental Status: WNL Respiratory Status: Oxygenating on Room Air - Study Findings Consistencies: Thin Liquid, [place] Thick Liquid, Honey Thick Liquid, Pudding, Cookie - Penetration-Aspiration Scale Penetration-Aspiration Scale: OBJECTIVE ASSESSMENT OF SWALLOW FUNCTION (QUANTITATIVE ? PER TRIAL): PENETRATION / ASPIRATION SCALE (REGALADO): 1 = does not enter airway 2 = enters airway/above vocal folds/ejected 3 = enters airway/above vocal folds/not ejected 4 = enters airway/contacts vocal folds/ejected 5 = enters airway/contacts vocal folds/not ejected 6 = enters airway/below vocal folds/ejected 7 = enters airway/below vocal folds/not ejected despite effort 8 = enters airway/below vocal folds/no effort VIDEOFLOROSCOPIC SCALE SCORE (REGALADO): Grade I = aspiration of material that has penetrated into the laryngeal vestibule, intact cough reflex Grade II = aspiration < 10 % of the bolus, intact cough reflex Grade III = aspiration of < 10 % of the bolus, reduced cough reflex or aspiration of > 10 % of the bolus, intact cough reflex Grade IV = aspiration of > 10 % of the bolus, reduced cough reflex - Penetration-Aspiration Scale Score Thin Liquid via teaspoon Result: 7= enters airways/below vocal folds/not ejected despite effort Thin Liquid via teaspoon Trial 2 Result: 1= does not enter airway Thin Liquid via single sip from cup Result: 7= enters airways/below vocal folds/not ejected despite effort Comment: Cricopharyngeal bar evident with this trial; however, it did not appear to obstruct bolus flow through UES. Thin Liquid via small single sip from cup Result: 1= does not enter airway [place] Thick Liquid via small single sip from cup Result: 1= does not enter airway Honey Thick Liquid via small single sip from cup Result: 1= does not enter airway Pudding Result: 1= does not enter airway Cookie Result: 1= does not enter airway Thin Liquid via single sip from straw Result: 1= does not enter airway Thin Liquid via sequential sips from straw Result: 1= does not enter airway Thin Liquid via small single sip from cup Trial 2 Result: 4= enters airway/contacts vocal folds/ejected Comment: No cough reflex elicited. Thin Liquid via single sip from straw Trial 2 Result: 3= enters airways/above vocal folds/not ejected Thin Liquid via single sip from straw Trial 3 Result: 3= enters airways/above vocal folds/not ejected Thin Liquid via small single sip from straw Result: 1= does not enter airway Comment: Patient cued for smaller single bolus via straw. Clip not fully recorded due to computer error. No penetration/aspiration evident per MITIGATION SUPERVISOR observation during study. - Oral Phase Labial Seal: Interlabial escape, no progression to anterior lip Tongue Control During Bolus Hold: Posterior escape of greater than half of bolus Bolus Preparation/Mastication: Slow prolonged chewing/mashing with complete recollection Bolus Transport/Lingual Motion: Slowed tongue motion Oral Residue: Trace residue lining oral structures - Pharyngeal Phase Initiation of Pharyngeal Swallow: Bolus head at posterior laryngeal surgace of epiglottis Soft Palate Elevation: Trace column of contrast/air between soft palate and pharyngeal wall Laryngeal Elevation: Partial superior movement thyroid cart/partial apprx aryt- epig petiole Anterior Hyoid Excursion: Partial anterior movement Epiglottic Movement: Complete inversion Laryngeal Vestibule Closure at Height of Swallow: Incomplete; narrow column of air/contrast in laryngeal vestibule Pharyngeal Stripping Wave: Present - diminished Pharyngoesophageal Segment Opening: Parital distension and partial duration; parital obstruction of flow Tongue Base Retraction: Trace column of contrast between tongue base & post. pharyngeal wall Pharyngeal Residue: Collection of residue within or on pharyngeal structures - Esophageal Phase Esophageal Clearance: Esophageal retention - Treatment Strategies Effects of treatment strategies attemped:: Reduced bolus size = Effective. Improved timing of swallow likely due to improved bolus control with smaller bolus size. Use of straw = Effective. Improved bolus formation and bolus control of thin liquids. Multiple swallows = Effective. Pt independently utilizes multiple swallows to clear pharyngeal residue of both liquids and solids. - Diagnosis/Impression Diagnosis: Mild oropharyngeal phase dysphagia (R13.12) Impression: The oral phase of the swallow is marked by slowed tongue movement during bolus transport. The patient also had deficits in bolus control resulting in premature loss of bolus upon swallow onset, especially with larger bolus thin liquid trials. The patient had mild oral residues effectively cleared with use of double swallow. Pharyngeal phase deficits were characterized by delayed pharyngeal swallow onset timing resulting in suboptimal bolus location on the posterior wall of the epiglottis upon swallow onset. The patient also has reduced airway closure during deglutition attributed to reduced laryngeal elevation and mildly decreased anterior hyoid excursion resulting in decreased closure of the laryngeal vestibule. Mildly reduced tongue base retraction was observed. The patient had mild pharyngeal residues in the valleculae and pyriforms, which effe ctively cleared with independent initiation of double swallow. 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 SEE attached photo in study in PACS. The patient demonstrated aspiration of thin liquids during the swallow consuming sips via teaspoon and cup. When cued for small sips (e.g. as small as you can), the patient had improved bolus control and swallow onset, resulting in improved airway protection. The pt also experienced deep penetration of large single sips of thin liquids via straw, although the contrast ejected from the airway. The patient benefits from use of straw and use of small, single sips when consuming thin liquids to decrease risk for aspiration. - Recommendations Diet: Regular Textures, Thin Liquids Comment: Sips one at a time. Compensatory Strategies: Small Bites, Small Sips, Sips by straw only, Slow Rate, Multiple Swallows - Pt demonstrates use of multiple swallows to clear pharyngeal residue independently., Sitting upright Recommend Repeat Modified Barium Swallow: Yes - Repeat study in 8-12 after implementation of oropharyngeal exercise program with outpatient speech therapy. Need for Skilled Speech Therapy Services: Yes Comment: Would recommend the patient for follow-up outpatient speech therapy services to implement oropharyngeal strengthening and ROM exercises addressing deficits in hyolaryngeal elevation and delayed swallow onset. The patient would also benefit from continued education for use of compensatory strategies to decrease risk for aspiration. Education Completed: 1. Described result of evaluation., 2. Pt understands evaluation & agrees with goals and treatment plan., 7. Pt requires further education on strategies & risks. - Status Active ST Patient: Active - Contact Information [facility] Speech Therapy:: Juanita Amaya M.A., [facility]-MITIGATION SUPERVISOR Speech Language Pathologist [facility] [address] [place] [address] [phone]
== END ==
PROVIDERS: PCP Family Medicine; Referring Provider Student in an Organized Health Care Education/Training Program; Visit Provider Student in an Organized Health Care Education/Training Program
DX: C07 Malignant neoplasm of parotid gland (principal)
CPT/HCPCS: 74230; 92611

== ENCOUNTER → 2022-06-17 | Outpatient (CLI) | payer MEDICARE, OTHER, SELFPAY ==
[2020-03-31 12:58] VITALS: BMI 22.0
--- NOTE | 2022-06-17 07:52 | CT_ITS ---
STUDY: CT ABDOMEN AND PELVIS WITH CONTRAST REASON FOR EXAM: Male, 72 years old. 30 pound weight loss. History of small cell carcinoma of the lung. RADIATION DOSAGE (If Supplied By Facility): CTDIvol = ( 10.51 ) mGy, DLP = ( 361.73 ) mGycm TECHNIQUE: Transaxial images were obtained from the dome of the diaphragm to the symphysis pubis with oral contrast. Oral and amp; IV Readi-CAT and amp; 100mL Isovue-300 was administered. Sagittal and coronal images were reconstructed. Individualized dose optimization techniques were used for this CT. COMPARISON: None. FINDINGS: Increased linear markings with areas of confluence are seen in the posterior medial segment of the left lower lobe suggestive of scarring. Mild linear scarring at the right lung base as well. The visualized portions of the heart are within normal limits. There is a 2.2 cm x 1.9 cm hypodense mass in the posterior aspect of the right lobe of the liver superiorly. There is peripheral enhancement. This may represent an hepatic hemangioma. Correlation with the ultrasound examination is suggested for further evaluation. Subcentimeter cysts are seen in the anterior aspect of the right lobe of the liver anteriorly as well as in the inferior aspect of the right lobe of the liver.. Normal gallbladder and extrahepatic biliary system. Normal spleen. Normal pancreas. Normal bilateral adrenal glands. Normal right kidney. Normal left kidney. Normal visualized stomach. Normal small intestine. A moderate amount of fecal material is seen in the colon. The appendix is visualized and appears normal. There is diffuse atherosclerotic calcification of the abdominal aorta, without a demonstrated aneurysm. Normal inferior vena cava. Normal retroperitoneum. Marked degree of a diffuse irregular bladder wall thickening. There is a 5.8 cm x 6.7 cm polypoid mass at the base of the bladder. There is also evidence of a prostatic enlargement causing an indentation of the bladder base. The prostate measures 4.97 x 5.6 cm. Focal calcifications are seen within the prostate. Normal abdominal wall. There are degenerative changes of the visualized lumbar spine. CT/Abdomen/Pelvis WITH Contrast IMPRESSION: Marked degree of irregular bladder wall thickening with prostatic enlargement. Findings suggestive of a 5.8 cm x 6.7 cm polypoid mass at the base of the urinary bladder. Findings suggestive of a 2.2 cm x 1.9 cm hemangioma in the posterior inferior aspect of the right lobe of the liver. Correlation with ultrasound of the liver is recommended for further evaluation. Electronically Signed: Fracisco Paredes MD at 12:50 EDT ,
[2022-06-17 08:15] LABS: CREATININE FINGERSTICK 1.1 mg/dL (0.70-1.30); EGFR FINGERSTICK > 60.0000 mL/min (>60)
== END | disposition home or self-care (01) ==
LOC: CT 07:48
PROVIDERS: PCP Family Medicine; Referring Provider Family Medicine; Visit Provider Family Medicine
DX: R63.4 Abnormal weight loss (principal); C34.92 Malignant neoplasm of unspecified part of left bronchus or lung; C07 Malignant neoplasm of parotid gland
CPT/HCPCS: 74177; Q9967

== ENCOUNTER → 2022-08-01 | Outpatient (CLI) | payer MEDICARE, OTHER, SELFPAY ==
[2020-03-31 12:58] VITALS: BMI 22.0
== END | disposition home or self-care (01) ==
LOC: LABSPEC 16:36
PROVIDERS: PCP Family Medicine; Visit Provider Urology
DX: N40.1 Benign prostatic hyperplasia with lower urinary tract symptoms (principal)
CPT/HCPCS: 87077; 87086; 87088; 87186

== ENCOUNTER → 2023-02-09 | Outpatient (CLI) | payer MEDICARE, SELFPAY ==
[2020-03-31 12:58] VITALS: BMI 22.0
== END | disposition home or self-care (01) ==
LOC: LAB 12:02
PROVIDERS: PCP Family Medicine; Referring Provider Urology; Visit Provider Urology
DX: R97.20 Elevated prostate specific antigen [PSA] (principal)
CPT/HCPCS: 36415; 84153

== ENCOUNTER → 2023-03-07 | Outpatient (CLI) | payer MEDICARE, SELFPAY ==
[2020-03-31 12:58] VITALS: BMI 22.0
--- NOTE | 2023-03-07 16:11 | SP.MBSS_ITS ---
Modified Barium Swallow - Patient Information Study Date: 03/07/23 Study Time: 13:00 Direct Billable Minutes: 89 Total Minutes procedure & reportin Diagnosis: Myoepithelial carcinoma of the parotid gland (C07) Referring Physician: Jose Field Reason for Referral: Objectively assess swallow function, assess risk for aspiration, and determine recommendations for least restrictive diet textures and compensatory strategies to improve safety of swallow. 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 From 04/13/2020 - 05/27/2020 he r eceived adjuvant radiation therapy for his cancer of the parotid gland. Patient mentioned that he received radiation to his lung X15 treatments over 4 weeks for a cancerous ?spot? this past December. Per patient, he has had no recurrence of head or neck cancer. The patient participated in outpatient speech therapy from 04/22/2020 to 08/12/2020 to address dysphagia related to radiation therapy to treat carcinoma of the left parapharyngeal space/parotid gland s/p left parotidectomy with left parapharyngeal space mass resection and left selective neck dissection. During therapy, the pt was trained in oropharyngeal and trismus exercise program. He is no longer completing home exercise program. Most recent MBSS 04/06/2021 ? 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 SEE study for full recommendations and results. He was referred for repeat MBSS to reassess swallow function due to risk for worsening dysphagia and aspiration risk s/p radiation treatment. He denies difficulty swallowing liquids at this time. He reports occ episodes of foods becoming caught in his throat, especially sami fries or bread from sandwiches; however, if he chews more thoroughly and takes small bites he tolerates these foods well. He reports waking up every morning to coughing episodes with expectoration of thick phlegm, which he attributes to his COPD. Current Diet Ordered: Regular textures / Thin liquids Dentition: Upper Dentures - no dentition on the bottom Mental Status: WNL Respiratory Status: Oxygenating on Room Air - Penetration-Aspiration Scale Penetration-Aspiration Scale: OBJECTIVE ASSESSMENT OF SWALLOW FUNCTION (QUANTITATIVE ? PER TRIAL): PENETRATION / ASPIRATION SCALE (REGALADO): 1 = does not enter airway 2 = enters airway/above vocal folds/ejected 3 = enters airway/above vocal folds/not ejected 4 = enters airway/contacts vocal folds/ejected 5 = enters airway/contacts vocal folds/not ejected 6 = enters airway/below vocal folds/ejected 7 = enters airway/below vocal folds/not ejected despite effort 8 = enters airway/below vocal folds/no effort VIDEOFLOROSCOPIC SCALE SCORE (REGALADO): Grade I = aspiration of material that has penetrated into the laryngeal vestibule, intact cough reflex Grade II = aspiration < 10 % of the bolus, intact cough reflex Grade III = aspiration of < 10 % of the bolus, reduced cough reflex or aspiration of > 10 % of the bolus, intact cough reflex Grade IV = aspiration of > 10 % of the bolus, reduced cough reflex - Penetration-Aspiration Scale Score Thin Liquid via teaspoon Result: 1= does not enter airway Thin Liquid via teaspoon Trial 2 Result: 1= does not enter airway Thin Liquid via small single sip from cup Result: 1= does not enter airway [place] Thick Liquid via small single sip from cup Result: 1= does not enter airway Pudding via teaspoon with esophageal screen Result: 1= does not enter airway 1/2 Cookie Result: 1= does not enter airway Thin Liquid via single sip from straw Result: 2= enter airway/above vocal folds/ejected Thin Liquid via sequential sips from straw Result: 8= enters airway/below vocal folds/no effort Thin Liquid via large single sip from cup Result: 4= enters airway/contacts vocal folds/ejected - delayed cough reflex Thin Liquid via small single sip from cup Trial 2 Result: 1= does not enter airway - Oral Phase Labial Seal: No Labial Escape Tongue Control During Bolus Hold: Posterior escape of less than half of bolus Bolus Preparation/Mastication: Disorganized chewing/mashing with solid pieces of bolus unchewed Bolus Transport/Lingual Motion: Delayed initiation of tongue motion Oral Residue: Trace residue lining oral structures - Pharyngeal Phase Initiation of Pharyngeal Swallow: Bolus head at posterior laryngeal surgace of epiglottis Soft Palate Elevation: No bolus between soft palate and pharyngeal wall Laryngeal Elevation: Partial superior movement thyroid cart/partial apprx aryt- epig petiole Anterior Hyoid Excursion: Partial anterior movement Epiglottic Movement: Partial inversion - inconsistent Laryngeal Vestibule Closure at Height of Swallow: Incomplete; narrow column of air/contrast in laryngeal vestibule Pharyngeal Stripping Wave: Present - diminished Pharyngoesophageal Segment Opening: Complete distension and complete duration; no obstruction of flow Tongue Base Retraction: Wide column of contrast between tongue base & post. pharyngeal wall - cookie Pharyngeal Residue: Collection of residue within or on pharyngeal structures - Esophageal Phase Esophageal Clearance: Esophageal retention w/ retrograde flow below pharyngoesophageal seg. - minimal retrograde flow, timely clearance of pudding - Diagnosis/Impression Diagnosis: Mild-moderate oropharyngeal phase dysphagia (R13.12) Impression: The oral phase is primarily marked by... -Decreased bolus control with <1/2 of large thin liquid bolus via cup spilling posteriorly to the laryngeal vestibule prior to swallow onset, which increases patient risk for aspiration before and during the swallow. -Decreased mastication with piece of cookie appearing un-chewed and remaining in the vallecula after multiple swallows. The pharyngeal phase is primarily marked by... -Mildly decreased airway closure during the swallow due to mildly decreased anterior hyoid excursion, mildly decreased laryngeal elevation, and inconsistent epiglottic inversion. -Mildly decreased tongue base retraction and pharyngeal stripping wave resulting in moderate pharyngeal residue of cookie in the vallecula. Liquid wash effectively cleared cookie. -Trace, but SILENT aspiration of sequential sips of thin liquids via straw. Deep laryngeal penetration of large sip of thin liquid via cup, which fully ejected from the laryngeal vestibule and elicited a delayed cough reflex. - Recommendations Diet: Regular Textures, Thin Liquids Compensatory Strategies: Small Bites - chew thoroughly, Small Sips, Slow Rate - sips one at a time, Multiple Swallows, Alternate bites/solids and sips/liquids, Sitting upright Recommend Repeat Modified Barium Swallow: Yes Comment: Plan for repeat MBSS in 12 months to continue to monitor swallow function s/p radiation, as pt is at increased risk for worsening dysphagia and aspiration risk related to long term care social worker effects of radiation. Need for Skilled Speech Therapy Services: Yes Comment: Will recommend the patient for outpatient dysphagia therapy to address deficits in oropharyngeal swallow function. Will recommend the patient for home exercise program for oropharyngeal strengthening to improve lingual control, tongue base retraction, laryngeal elevation, and pharyngeal contraction. The patient would benefit from thorough education regarding diet recommendations and recommended compensatory strategies. Education Completed: 1. Described result of evaluation., 2. Pt understands evaluation & agrees with goals and treatment plan., 7. Pt requires further edu cation on strategies & risks. - Status Active ST Patient: Active - Contact Information [facility] Speech Therapy:: Juanita Amaya M.A. [facility] WORKFLOW CONSULTANT Speech-Language Pathologist [facility] [address] [place] [address] [email or web address] [phone] 03/07/23 16:26
== END | disposition home or self-care (01) ==
LOC: RAD 12:43
PROVIDERS: PCP Family Medicine; Referring Provider Student in an Organized Health Care Education/Training Program; Visit Provider Student in an Organized Health Care Education/Training Program
DX: C07 Malignant neoplasm of parotid gland (principal)
CPT/HCPCS: 74230; 92611

== ENCOUNTER → 2023-08-22 | Outpatient (CLI) | payer MEDICARE, SELFPAY ==
[2020-03-31 12:58] VITALS: BMI 22.0
[2023-08-22 11:15] VITALS: PULSE 61; PULSE 70; PULSE 72; PULSE 73; PULSE 75; PULSE 78; PULSE 80; O2SAT 86; O2SAT 90; O2SAT 91; O2SAT 92; O2SAT 94; O2SAT 96
--- NOTE | 2023-08-22 12:07 | CPS ---
Pt was placed on oxygen at 1 lpm at the 4th minute of test. Pt was able to finish the last 2 minutes of test on 1 lpm.
--- NOTE | 2023-09-05 11:06 | HP.SP.DC ---
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 During most recent dysphagia POC, he attended an OP evaluation and 3 follow up sessions 04/06/23-05/02/23 for training in strategies to decrease risk for aspiration and oropharyngeal exercise program. INVESTMENT DIRECTOR called the patient on 09/05/2023, and he reports requiring no additional speech therapy for training in strategies to decrease aspiration risk or oropharyngeal exercise program. He reports completing exercises at home. INVESTMENT DIRECTOR recommended continued use of strategies and exercise program to maintain optimal swallow function s/p radiation. INVESTMENT DIRECTOR will discharge the patient's chart with plans for annual MBSS in 03/2024. Pt agreeable. Please re-consult if concern for worsening dysphagia prior to March 2024.
== END | disposition home or self-care (01) ==
LOC: PSN 11:15
PROVIDERS: PCP Family Medicine; Referring Provider Nurse Practitioner Acute Care; Visit Provider Nurse Practitioner Acute Care
DX: J44.9 Chronic obstructive pulmonary disease, unspecified (principal)
CPT/HCPCS: 94618

== ENCOUNTER → 2024-02-19 | Outpatient (CLI) | payer MEDICARE, SELFPAY ==
[2020-03-31 12:58] VITALS: BMI 22.0
[2024-02-19 14:56] LABS: PSA,Total - Annual Screen 2.08 ng/mL (0.00-4.00)
== END | disposition home or self-care (01) ==
PROVIDERS: PCP Family Medicine; Referring Provider Nurse Practitioner; Visit Provider Nurse Practitioner
DX: Z12.5 Encounter for screening for malignant neoplasm of prostate (principal)
CPT/HCPCS: 36415; 84153; G0103

== ENCOUNTER → 2024-04-01 | Outpatient (CLI) | payer MEDICARE, SELFPAY ==
[2020-03-31 12:58] VITALS: BMI 22.0
--- NOTE | 2024-04-01 13:38 | ST.MBS ---
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 From 04/13/2020 - 05/27/2020 he received adjuvant radiation therapy for his cancer of the parotid gland. Patient mentioned that he received radiation to his lung X15 treatments over 4 weeks for a cancerous ?spot? this past December. Per patient, he has had no recurrence of head or neck cancer. The patient participated in outpatient speech therapy from 04/22/2020 to 08/12/2020 to address dysphagia related to radiation therapy to treat carcinoma of the left parapharyngeal space/parotid gland s/p left parotidectomy with left parapharyngeal space mass resection and left selective neck dissection. During therapy, the pt was trained in oropharyngeal and trismus exercise program. Most recent prior MBSS 03/07/23 - Regular Textures, Thin Liquids w/ Small Bites - chew thoroughly, Small Sips, Slow Rate - sips one at a time, Multiple Swallows, Alternate bites/solids and sips/liquids, Sitting upright - SEE study for full recommendations and results. He had PET CT scan on 02/06/2024 which showed enlarging mass in the left lower lobe with multiple bilateral hypermetabolic nodules suggestive of malignant disease. He was referred for repeat MBSS to reassess swallow function due to risk for worsening dysphagia and aspiration risk s/p radiation treatment. He denies difficulty swallowing liquids at this time. He reports occ episodes of foods becoming caught in his throat, bread or buns from sandwiches (occurring ~1x/month), but reports that he uses multiple effortful swallows and a liquid wash he is able to clear the retention. He reports daily coughing episodes with expectoration of thick phlegm twice daily, typically just before his breathing treatments. Pt reports that he is no longer completing oropharyngeal or trismus exercises regularly. Medical History: Parapharyngeal space mass; Migraine; Hearing loss, bilateral; Emphysema lung; Asthma; Anxiety; Lung nodule; history of tumor removal; BPH (benign prostatic hyperplasia); Hyperlipidemia; Depression; GERD (gastroesophageal reflux disease); HTN (hypertension); COPD (chronic obstructive pulmonary disease) Dentition: Edentulous (has lower dentures but does not wear them) and Upper Dentures Mental Status: WNL Respiratory Status: Oxygenating on Room Air Penetration-Aspiration Scale Penetration-Aspiration Scale: OBJECTIVE ASSESSMENT OF SWALLOW FUNCTION (QUANTITATIVE ? PER TRIAL): PENETRATION / ASPIRATION SCALE (REGALADO): 1 = does not enter airway 2 = enters airway/above vocal folds/ejected 3 = enters airway/above vocal folds/not ejected 4 = enters airway/contacts vocal folds/ejected 5 = enters airway/contacts vocal folds/not ejected 6 = enters airway/below vocal folds/ejected 7 = enters airway/below vocal folds/not ejected despite effort 8 = enters airway/below vocal folds/no effort VIDEOFLOROSCOPIC SCALE SCORE (REGALADO): Grade I = aspiration of material that has penetrated into the laryngeal vestibule, intact cough reflex Grade II = aspiration < 10 % of the bolus, intact cough reflex Grade III = aspiration of < 10 % of the bolus, reduced cough reflex or aspiration of > 10 % of the bolus, intact cough reflex Grade IV = aspiration of > 10 % of the bolus, reduced cough reflex Penetration-Aspiration Scale Score Thin Liquid via teaspoon: Result: 1= does not enter airway Thin Liquid via teaspoon Trial 2: Result: 1= does not enter airway Thin Liquid via large single sip: cup: Result: 3= enters airways/above vocal folds/not ejected Thin Liquid via small single sip: cup: Result: 1= does not enter airway Thin Liquid via sequential sips: cup: Result: 5= enters airways/contacts vocal folds/not ejected Comment: cued cough and re-swallow was effective to expel contrast from the laryngeal vestibule Thin Liquid via single sip: straw: Result: 1= does not enter airway Pudding via teaspoon: Result: 1= does not enter airway Cookie: Result: 1= does not enter airway Thin Liquid via small single sip: cup Trial 2: Result: 1= does not enter airway Oral Phase Labial Seal: No Labial Escape Tongue Control During Bolus Hold: Posterior escape of less than half of bolus Bolus Preparation/Mastication: Slow prolonged chewing/mashing with complete recollection Bolus Transport/Lingual Motion: Delayed initiation of tongue motion Oral Residue: Trace residue lining oral structures Pharyngeal Phase Initiation of Pharyngeal Swallow: Bolus head at posterior laryngeal surgace of epiglottis Soft Palate Elevation: No bolus between soft palate and pharyngeal wall Laryngeal Elevation: Partial superior movement thyroid cart/partial apprx aryt-epig petiole Anterior Hyoid Excursion: Partial anterior movement Epiglottic Movement: Partial inversion Laryngeal Vestibule Closure at Height of Swallow: Incomplete; narrow column of air/contrast in laryngeal vestibule Pharyngeal Stripping Wave: Present - diminished Pharyngoesophageal Segment Opening: Complete distension and complete duration; no obstruction of flow Tongue Base Retraction: Wide column of contrast between tongue base & post. pharyngeal wall Pharyngeal Residue: Collection of residue within or on pharyngeal structures Esophageal Phase Esophageal Clearance: Complete clearance Treatment Strategies Effects of treatment strategies attemped:: Multiple swallows = effective Liquid wash = effective Cough and reswallow = effective Diagnosis/Impression Diagnosis: mild oropharyngeal dysphagia Impression: The oral phase is primarily marked by... -Decreased bolus control with <1/2 of large thin liquid bolus via cup spilling posteriorly to the laryngeal vestibule prior to swallow onset, which increases patient risk for aspiration before and during the swallow. -Slow mastication of solids appreciated.? The pharyngeal phase is primarily marked by... -Mildly decreased airway closure during the swallow due to mildly decreased anterior hyoid excursion, mildly decreased laryngeal elevation, and inconsistent epiglottic inversion, resulting in intermittent laryngeal vestibule penetration before/during the swallow. -Decreased tongue base retraction and reduced pharyngeal stripping wave, coupled w/ intermittent incomplete epiglottic inversion resulted in mild vallecular residue retention w/ liquids and moderate vallecular residue retention of the cookie. The patient independently initiate 1-2 additional swallows which was effective to reduce but not eliminate the residue, a liquid wash was effective to clear the remaining residue from the cookie. -Trace laryngeal vestibule penetration occurred w/ large volume and sequential swallows of thin liquid. All penetration was of trace amount, but with sequential swallows was noted to contact the vocal folds w/out ejection. A cued cough and reswallow was effective to clear the laryngeal vestibule.? The esophageal phase is primarily marked by? -A CP bar was evident at the C5 level, although this did not impede esophageal bolus clearance. CP bar appearance remains unchanged when compared to images from prior MBSS 03/07/24. Recommendations Diet: Regular Textures and Thin Liquids Compensatory Strategies: Small Bites (chew thoroughly), Small Sips (cough and re-swallow as needed/at reasonable intervals during intake to laryngeal vestibule clearance and reduce risks associated w/ penetration/aspiration.), Slow Rate (one sip at a time, avoid sequential intake), Multiple Swallows (as needed to clear pharyngeal residue), Alternate bites/solids and sips/liquids and Sitting upright Recommend Repeat Modified Barium Swallow: Yes Comment: Plan for repeat MBSS in 12 months to continue to monitor swallow function s/p radiation, as pt is at increased risk for worsening dysphagia and aspiration risk related to assisted effects of radiation. Education Completed: 1. Described result of evaluation. (Images were reviewed w/ the patient immediately following MBSS conclusion.) and 2. Pt understands evaluation & agrees with goals and treatment plan. 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 Status Active ST Patient: Active Contact Information [facility] Speech Therapy:: Jayda Ingram M.A. [facility] Speech-Language Pathologist [place] [address] x [phone] [email or web address]
== END | disposition home or self-care (01) ==
LOC: RAD 12:35
PROVIDERS: PCP Family Medicine; Referring Provider Student in an Organized Health Care Education/Training Program; Visit Provider Student in an Organized Health Care Education/Training Program
DX: C07 Malignant neoplasm of parotid gland (principal)
CPT/HCPCS: 74230; 92611

== ENCOUNTER 2024-05-10 05:55 | Day surgery (SDC) | payer MEDICARE, SELFPAY ==
[2020-03-31 12:58] VITALS: BMI 22.0
[2024-05-10] VITALS (10 sets, daily range): BP systolic 82–145; BP diastolic 52–81; PULSE 57–69; RESP 16–18; TEMP 36.1–36.4; O2SAT 93–98; BMI 18.6
[2024-05-10] MEDS: Lactated Ringers 1,000 ML 15 ML IV (06:40)
--- NOTE | 2024-05-10 06:55 | PCM.HP.BLA ---
History and Physical Date of Admission: 05/10/24 Date of Service: 05/07/24 MR#: [id number] Acct: [id number] Name: BRAN LEMOS Rep #: [id number] : 1950 Provider: Dr. Evelin Glover MD Age/Sex: 74/M Location: [facility] Status: Signed Intake Vital Signs 04/23/2412:59 05/06/2409:54 05/07/2412:54 Height 5 ft 10 in 5 ft 10 in 5 ft 10 in Weight: 131 lb 2 oz 130 lb 5 oz 130 lb BMI 18.8 18.6 18.6 BP 109/69 122/77 H 150/80 H Blood Pressure Location Lt brachial Lt brachial Rt brachial Position Sitting Sitting Sitting Respiration 18 16 18 Pulse 66 57 L 57 L Pulse Source Monitor Monitor Monitor Temp 98.6 F 97.8 F 97.3 F L Temp Source Temporal Pulse Oximetry (%) 94 95 95 Oxygen Delivery Method room air room air room air Intake Visit Reasons: PORT PLACEMENT Chief Complaint: port placement Is patient in pain?: No Allergies Sulfa (Sulfonamide Antibiotics) Allergy (Verified 05/07/24 12:55) Hives Medications ?Medication ?Instructions ?Recorded ?Confirmed ?Type simvastatin 40 mg tablet 40 mg PO QHS cholesterol 07/18/17 05/07/24 History finasteride 5 mg tablet 5 mg PO DAILY prostate 08/29/19 05/07/24 History paroxetine HCl 20 mg tablet 20 mg PO DAILY depression 06/29/21 05/07/24 History tiotropium bromide 18 mcg capsule 1 cap inhalation DAILY #90 01/16/23 05/07/24 Rx with inhalation device (Spiriva inhalations with HandiHaler) budesonide-formoterol HFA 160 2 puff inhalation BID #3 device 02/15/24 05/07/24 Rx mcg-4.5 mcg/actuation aerosol inhaler (Symbicort) albuterol sulfate 90 mcg/actuation 1 puff inhalation Q6H PRN 03/25/24 05/07/24 History aerosol inhaler (ProAir HFA) shortness of breath or wheezing ascorbic acid (vitamin C) 500 mg 500 mg PO DAILY 03/25/24 05/07/24 History tablet ibuprofen 200 mg tablet 200 mg PO Q6H PRN pain 03/25/24 05/07/24 History multivitamin 1 tab PO DAILY 03/25/24 05/07/24 History tamsulosin 0.4 mg capsule 0.4 mg PO QHS 03/25/24 05/07/24 History cefuroxime axetil 250 mg tablet 250 mg PO BID 05/03/24 05/07/24 History omeprazole 40 mg capsule,delayed 40 mg PO DAILY 05/03/24 05/07/24 History release dexamethasone 4 mg tablet 8 mg (2 x 4 mg) PO .COMPLEX #6 tabs 05/06/24 05/07/24 Rx lidocaine-prilocaine 2.5 %-2.5 % 1 applic topical ONCE PRN port 05/06/24 05/07/24 Rx topical cream access 30 days #30 grams ondansetron 8 mg disintegrating 8 mg PO Q8H PRN nausea and 05/06/24 05/07/24 Rx tablet vomiting #30 tabs Have you fallen in the past year?: No PFSH Medical History Encounter for education Wears hearing aid Wears glasses Wears dentures Cancer Alcohol use Arthritis Easy bruising Restless legs Migraine headache Syncope Difficulty swallowing On home oxygen therapy Smoker Shortness of breath on exertion Leg cramps Chronic cough History of echocardiogram Parapharyngeal space mass Emphysema lung Asthma Anxiety Lung nodule history of tumor removal BPH (benign prostatic hyperplasia) Hyperlipidemia Depression GERD (gastroesophageal reflux disease) COPD (chronic obstructive pulmonary disease) Surgical History Hx of colonoscopy Hx of tonsillectomy Hx of arthroscopic knee surgery History of radical neck surgery History of parotid gland excision Family History Brother Diabetes Heart diseaseSister Liver tumor Bladder tumorFather CVA (cerebral vascular accident) Heart disease Myocardial infarctionMother Heart disease Dementia Social History (Updated 05/07/24 @ 12:54 by Betzy Schmidt LPN) household members: other details: Smoking Status: Current every day smoker tobacco type: cigarettes Smoking packs per day: 0.5 Smoking cigarettes per day: 10.0 alcohol intake: current alcohol intake frequency: a few times a week substance use type: does not use HPI HPI HPI: 74-year-old male with metastatic non-small cell cancer of left lung presents for port placement. Chemotherapy is planned to start 05/15/2024 ROS General General: Yes weight change (loss) and fatigue; No appetite, colon cancer, breast cancer or weakness HEENT HEENT: No difficulty swallowing, eye injury, eye surgery, swollen glands or hoarseness Endo Endocrine: No thyroid disease, diabetes mellitus, thyroid cancer, Hair loss, heat intolerance or cold intolerance Skin Skin: No rash or changing moles Musc Musculoskeletal: No back problems, arthritis, rheumatoid arthritis, gout or joint pain Cardio Cardiovascular: Yes high blood pressure; No murmur, pacemaker, heart disease, atrial fibrillation, heart attack, heart stent, palpitations, shortness of breat with exertion or chest pain Psych Psychiatric: Yes depression and anxiety; No hearing voices Resp Respiratory: Yes shortness of breath, No sleep apnea, No cough, Yes COPD, Yes asthma, No emphysema and No wheezing Gastro Gastrointestinal: No abdominal pain, No nausea or vomiting, No diarrhea, No constipation, No blood in stool, Yes acid reflux, No hemorrhoids, No ulcers, No gallbladder problem and No black,tarry stools Gary Hematologic: No blood thinners, No blood disorders, No bleeding, No anemia and No blood clots Neuro Neurologic: No numbness, No tingling and No weakness Exam Const General: cooperative, healthy appearing, comfortable and no acute distress [facility] Head: normocephalic and atraumatic Neck Neck: supple Chest Other: Normal palpation to bilateral upper chest Resp Effort & Inspection: normal respiratory effort Cardio Rate: regular rate GI Inspection: non-distended Skin General: no rashes or lesions noted Neuro General: CN's II-XI intact bilaterally Extrem General: normal to inspection Psych Mental Status: mental status grossly normal Attitude: cooperative Assessment and Plan Assessment and Plan (1) Encounter for insertion of venous access port: Status: Acute (2) Non-small cell cancer of left lung: Status: Chronic Comment: Squamous cell type, now with progressive disease in L lung and metastatic disease to R lung. PD-L1 negative <1, ALK, BRAF, Her2/EGFR/ROS1, RET/MET negative. Discussed treatment with chemotherapy, Chemo + Immunotherapy. Can hold off FOB since R lung lesion is less than 1 cm. (3) Disseminated cancer: Status: Acute Plan I have discussed above with the patient- Port-a-Cath placement. Right possible left IJ Patient has been counseled as to the risks/benefits of the procedure. I have explained the risks of the surgery, including but not limited to: infection, bleeding, injury to any blood vessels/nerves, injury to lungs (such as pneumothorax or hemothorax and need for chest tube), not having any access, nonfunctioning of port due to thrombosis, infection of port, etc. the patient understands and agrees to proceed. I have answered all the patient's questions to the patient?s satisfaction and the patient has no further questions. Evelin Glover M.D. Pager: [phone] [facility] [address] [place] [address], [address] [place] [address] Office: [phone] Coding Level of Care Code Off vis,new,level 3 Diagnoses Encounter for insertion of venous access port Z45.2 Non-small cell cancer of left lung C34.92 Disseminated cancer C80.0 Clinical Quality Measures Falls Risk Screening/Assistive Devices Have you fallen in the past year?: No 05/07/24 1324 <Electronically signed by Evelin Glover MD> Date Evelin Glover MD
--- NOTE | 2024-05-10 06:57 | PRE.ANES_ITS ---
ASA Classification* ASA Classification ASA Classification: 3 Assessment & Plan Anesthesia* Anesthesia Assessment Anesthesia Assessment: Discussed sedation and/or anesthesia options, risks, benefits, and alternatives with patient/parents/legal guardian/POA. Questions invited. The patient/parents/legal guardian/POA seems to understand and agrees to proceed with anesthesia plan. Reviewed the physical assessment, medical history, allergy history and patient home medications list prior to surgery/procedure/anesthetic and documented any changes. Performed airway and anesthesia risk assessments. Anesthesia Type Anesthesia Type: MAC History Source History Obtained from:: Patient and Chart Anesthesia Focused Assessment* Temperature: 96.9 F Pulse Rate: 61 Blood Pressure: 114/81 Respiratory Rate: 16 Pulse Ox: 94 Oxygen Delivery Method: Room Air Airway Assessment Mouth opens: >3 cm Mallampati Score: I Teeth Condition: Dentures (Full upper dentures. Lower dentures are out.) Neck Range of motion (ROM): Limited ROM (Decreased extension.) Focused Labs Anesthesia Preop lab: CBC WBC 8.7 K/mm3 (4.4-11.0) 10/30/19 06:13 RBC 4.61 M/mm3 (4.6-6.2) 10/30/19 06:13 Hgb 14.6 g/dL (13.0-16.5) 10/30/19 06:13 Hct 45.0 % (40-54) 10/30/19 06:13 Plt Count 340 K/mm3 (150-450) 10/30/19 06:13 CHEMISTRY Potassium 3.8 mmol/L (3.5-5.1) 10/30/19 06:13 Sodium 140 mmol/L (136-145) 10/30/19 06:13 Magnesium 2.2 mg/dL (1.6-2.6) 08/29/19 20:30 BUN 14 mg/dL (7-18) 10/30/19 06:13 Creatinine 1.00 mg/dL (0.70-1.30) 10/30/19 06:13 Glucose 102 mg/dL (74-106) 10/30/19 06:13 COAG PT 13.7 SECONDS (11.7-14.9) 08/30/19 02:43 Pre-Assessment Diagnosis/Proposed Procedure Planned Operative Procedure(s): INSERTION VASCULAR PORT RIGHT POSS LEFT Anesthesia History 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 When Was Last Pacemaker Check QUESTION #4 FULL TEXT: You/Your Family Experience fever (hyperthermia) with Anesthesia Last Oral Intake Last Oral intake: Last Oral Intake NPO since 22:00 05/10/24 06:24 Meds taken in AM with sips of Yes 05/10/24 06:24 water? Meds patient instructed to INHALERS,PRILOSEC 05/10/24 06:24 take am of surgery BRING RESCUE INHALER PONV PONV - marketing researcher: PONV - marketing researcher Female No 05/03/24 08:12 HX of Motion Sickness No 05/03/24 08:12 HX of N/V After Surgery No 05/03/24 08:12 Non-Smoker No 05/03/24 08:12 Duration of Surgery greater No 05/03/24 08:12 than 60 minutes Number of Risk Factors PONV Score Height & Weight Height & Weight: Anesthesia: Height & Weight Height 5 ft 10 in 05/10/24 06:24 Weight: 58.8 kg 05/10/24 06:24 Body Mass Index (BMI) 18.6 05/10/24 06:24 Respiratory Assessment Respiratory Assessment - marketing researcher: Respiratory Tract Infection Hx - marketing researcher Hx Respiratory Tract Infection Yes: JUST STARTED ANTIBIOTIC 05/03/24 08:12 STOP Sleep Apnea STOP Sleep Apnea - marketing researcher: STOP Sleep Apnea - marketing researcher Hx Hypertension No 05/03/24 08:12 Hx Sleep Apnea No 05/03/24 08:12 CPAP BIPAP Do you snore loudly (louder No 05/03/24 08:12 than talking or can be heard Do you often feel tired/ No 05/03/24 08:12 fatigued/ sleepy during daytime? Has anyone observed you stop No 05/03/24 08:12 breathing during sleep? STOP Results Negative 05/03/24 08:12 QUESTION #5 FULL TEXT : Do you snore loudly (louder than talking or can be heard through closed doors)? 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 Specify any problems Hx of Preganancy in last 3 N/A 05/03/24 08:12 Months Nurse Filling Out Transfusion DSCHRIBER 05/03/24 08:12 & Questions: Date: 05/03/24 05/03/24 08:12 Time: 08:13 05/03/24 08:12 Patient unable to answer at this time (ie. confused, unrespo /Reproduction History /Reproductive History - marketing researcher: /Reproductive Hx- marketing researcher Hx Now No 05/03/24 08:12 Gestational Age (in weeks): EDC: Hx Hx Para Hx Section SAB No 05/03/24 08:12 Active Medications Active Medications: Current Medications Generic Name Dose Route Start Last Admin Trade Name Freq PRN Reason Stop Dose Admin Cefazolin Sodium 2 gm/ Sodium 110 mls @ 150 mls/hr 05/10/24 07:30 Chloride IV 05/10/24 08:13 PREOP ONE Lactated Ringer's 1,000 mls @ 15 mls/hr 05/10/24 06:15 05/10/24 06:40 IV 15 mls/hr .Q48H HORTENCIA Administration PFSH Medical History Encounter for education Wears hearing aid Wears glasses Wears dentures Cancer Alcohol use Arthritis Easy bruising Restless legs Migraine headache Syncope Difficulty swallowing On home oxygen therapy Smoker Shortness of breath on exertion Leg cramps Chronic cough History of echocardiogram Parapharyngeal space mass Emphysema lung Asthma Anxiety Lung nodule history of tumor removal BPH (benign prostatic hyperplasia) Hyperlipidemia Depression GERD (gastroesophageal reflux disease) COPD (chronic obstructive pulmonary disease) Home Medications ?Medication ?Instructions ?Recorded ?Last Taken ?Type simvastatin 40 mg tablet 40 mg PO QHS cholesterol 07/18/17 08/28/19 History finasteride 5 mg tablet 5 mg PO DAILY prostate 08/29/19 08/28/19 History paroxetine HCl 20 mg tablet 20 mg PO DAILY depression 06/29/21 Unknown History tiotropium bromide 18 mcg capsule 1 cap inhalation DAILY #90 01/16/23 Unknown Rx with inhalation device (Spiriva inhalations with HandiHaler) budesonide-formoterol HFA 160 2 puff inhalation BID #3 device 02/15/24 Unknown Rx mcg-4.5 mcg/actuation aerosol inhaler (Symbicort) albuterol sulfate 90 mcg/actuation 1 puff inhalation Q6H PRN 03/25/24 Unknown History aerosol inhaler (ProAir HFA) shortness of breath or wheezing ascorbic acid (vitamin C) 500 mg 500 mg PO DAILY 03/25/24 Unknown History tablet ibuprofen 200 mg tablet 200 mg PO Q6H PRN pain 03/25/24 Unknown History multivitamin 1 tab PO DAILY 03/25/24 Unknown History tamsulosin 0.4 mg capsule 0.4 mg PO QHS 03/25/24 Unknown History cefuroxime axetil 250 mg tablet 250 mg PO BID 05/03/24 Unknown History omeprazole 40 mg capsule,delayed 40 mg PO DAILY 05/03/24 Unknown History release dexamethasone 4 mg tablet 8 mg (2 x 4 mg) PO .COMPLEX #6 tabs 05/06/24 Unknown Rx lidocaine-prilocaine 2.5 %-2.5 % 1 applic topical ONCE PRN port 05/06/24 Unknown Rx topical cream access 30 days #30 grams ondansetron 8 mg disintegrating 8 mg PO Q8H PRN nausea and 05/06/24 Unknown Rx tablet vomiting #30 tabs Allergy/AdvReac Type Severity Reaction Status Date / Time Sulfa (Sulfonamide Allergy Hives Verified 05/07/24 12:55 Antibiotics) Family History Brother Diabetes Heart disease Sister Liver tumor Bladder tumor Father CVA (cerebral vascular accident) Heart disease Myocardial infarction Mother Heart disease Dementia Surgical History Hx of colonoscopy Hx of tonsillectomy Hx of arthroscopic knee surgery History of radical neck surgery History of parotid gland excision Social History household members: other details: Smoking Status: Current every day smoker tobacco type: cigarettes alcohol intake: current alcohol intake frequency: a few times a week substance use type: does not use Review of Systems (Anesthesia) ROS Narrative System reviewed and no additional complaints, except as documented.
[2024-05-10] MEDS: Cefazolin 2 GM in 0.9% Normal Saline (100mL Bag) 100 ML IV (07:30)
[2024-05-10] MEDS: Bupivacaine 0.5% PF 10 ML VIAL (08:01)
[2024-05-10] MEDS: Lidocaine 1% /Epi 1:100 (20ml) 20 ML Vial (08:01)
--- NOTE | 2024-05-10 08:10 | PCM.POST.ANE ---
Anesthesia: Postop Eval I Current Vital Signs Temperature: 97 F Pulse Rate: 69 Blood Pressure: 82/52 Respiratory Rate: 16 Pulse Ox: 98 Oxygen Delivery Method: Room Air Assessment Airway patent: Yes Spontaneous unlabored respirations: Yes Mental status: Awake nausea: No Vomiting: No Anesthesia Complication: No Fluid Hydration Crystalloid volume administer (ml): 500 Total IV fluid infused: 500 Progress Note Anesthesia document: Postop Eval 1 completed: Yes
--- NOTE | 2024-05-10 08:11 | POSTOPAN2_ITS ---
Anesthesia Postop Eval I Sum Postop Eval Completion status Anesthesia document: Postop Eval 1 completed: Yes Anesthesia Postop Eval I Summary Anesthesia Postop Eval I Summary: Anesthesia Postop Eval I: Assessment Summary Airway patent Yes 05/10/24 08:11 MANAGEMENT ANALYST.LATOYA Spontaneous unlabored Yes 05/10/24 08:11 MANAGEMENT ANALYST.LATOYA respirations Mental status Awake 05/10/24 08:11 MANAGEMENT ANALYST.MDOT nausea No 05/10/24 08:11 MANAGEMENT ANALYST.MDOT Vomiting No 05/10/24 08:11 MANAGEMENT ANALYST.MDJIMMY Anesthesia Postop Eval I: Fluid Summary Crystalloid volume administer 500 05/10/24 08:11 MANAGEMENT ANALYST.MDOT (ml) Colloids volume administered ( ml) Blood Product volume administered (ml) Total IV fluid infused 500 05/10/24 08:11 MANAGEMENT ANALYST.LATOYA Anesthesia Postop Eval I: Summary Notes Anesthesia Complication No 05/10/24 08:11 MANAGEMENT ANALYST.LATOYA Anesthesia Complication Comment: Post-operative progress note Anesthesia: Postop Eval II Evaluation Mental status: Awake and Calm Pain Level: 0 nausea: No Vomiting: No Complications Anesthesia Complication: No
--- NOTE | 2024-05-10 08:11 | PCM.POSTANE2 ---
Anesthesia Postop Eval I Sum Postop Eval Completion status Anesthesia document: Postop Eval 1 completed: Yes Anesthesia Postop Eval I Summary Anesthesia Postop Eval I Summary: Anesthesia Postop Eval I: Assessment Summary Airway patent Yes 05/10/24 08:11 TRANSMITTER SUPERVISOR.LATOYA Spontaneous unlabored Yes 05/10/24 08:11 TRANSMITTER SUPERVISOR.LATOYA respirations Mental status Awake 05/10/24 08:11 TRANSMITTER SUPERVISOR.MDOT nausea No 05/10/24 08:11 TRANSMITTER SUPERVISOR.MDOT Vomiting No 05/10/24 08:11 TRANSMITTER SUPERVISOR.MDJIMMY Anesthesia Postop Eval I: Fluid Summary Crystalloid volume administer 500 05/10/24 08:11 TRANSMITTER SUPERVISOR.MDOT (ml) Colloids volume administered ( ml) Blood Product volume administered (ml) Total IV fluid infused 500 05/10/24 08:11 TRANSMITTER SUPERVISOR.LATOYA Anesthesia Postop Eval I: Summary Notes Anesthesia Complication No 05/10/24 08:11 TRANSMITTER SUPERVISOR.LATOYA Anesthesia Complication Comment: Post-operative progress note Anesthesia: Postop Eval II Evaluation Mental status: Awake and Calm Pain Level: 0 nausea: No Vomiting: No Complications Anesthesia Complication: No
--- NOTE | 2024-05-10 08:13 | PCM.OPRPT ---
Report of Operation Date of Procedure: 05/10/24 Pre-Operative Diagnosis: z45.2, non-small cell lung cancer Post-Operative Diagnosis: Same Surgery/Procedure Performed:: 1. Placement of right IJ Port-A-Cath Use of ultrasound Use of fluoroscopy Surgeon: Evelin Glover Type of Anesthesia: Local MAC Anesthesiologist: Kerwin Banda Special Medications: Ancef 2 g IV x 1 Estimated Blood Loss (mL): < 10 cc Description of Procedure: After informed consent was given, the patient was brought to the operating room and placed in the supine position. Appropriate time out protocol was followed. Patient was then given IV conscious sedation for anesthesia. The patient's right upper chest and neck were then prepped with a surgical skin preparation and sterile surgical drapes were placed. After proper landmarks were ascertained, the skin at the upper right chest area was then infiltrated with 1:1 mixture of 1% lidocaine with epinephrine and 0.5% marcaine. A needle trocar was then inserted into the right internal jugular vein with ultrasound guidance-multiple vessels were viewed with u/s and the right IJ was chosen-- and there was good aspiration of venous blood. A wire was then threaded into the needle trocar and this was visualized under fluoroscopy to ensure that the wire was in the superior vena cava. Once this was done, then the needle trocar was removed. A small skin annika was made with an 11 blade knife at the wire entrance site. The dilator with the introducer sheath attached was then placed over the wire into the right internal jugular vein via the Seldinger technique and this was visualized under fluoroscopy. The dilator and sheath were in proper position as visualized by fluoroscopy. A subcutaneous pocket was then created caudad to the catheter insertion site. A transverse skin incision was made after the skin and subcutaneous tissues were infiltrated with local anesthetic. Blunt dissection was then used to create a space large enough for placement of the subcutaneous port. The catheter was then tunneled into the subcutaneous pocket. The wire and dilator were then removed. The catheter was then threaded into the introducer sheath and was positioned with its tip at the junction of the superior vena cava and the right atrium as visualized under fluoroscopy. The excess catheter was transected. The catheter was then attached to the subcutaneous port using manufacturers guidelines. The catheter was flushed with a heparin saline mixture prior to placement. Hemostasis was carefully controlled with electrocautery. The port was sutured to the subcutaneous fascia using 2-0 Vicryl suture at two sites. The port was then placed in the subcutaneous pocket. The incision were reapproximated with interrupted subdermal 3-0 vicryl sutures. The skin was reapproximated with 3-0 nylon suture in a interrupted fashion. Steristrips were used for reinforcement of the skin closure at IJ insertion site and a sterile opsite dressings were applied. The patient tolerated the procedure well. Grafts/Implants Used: Bard PowerPort isp M.R.I. 6Fr Lot [id number] REF [id number] Complications none
--- NOTE | 2024-05-10 08:16 | DCINST_ITS ---
Discharge Instructions Procedure Port-A-Cath Diet Discharge Diet: Light diet - advance as tolerated Activity May shower in (days): 5 (Keep port site clean and dry x5 days. Neck incision okay to get wet after 1 day. Okay to lower shower and upper sponge bath. OR okay to taper off port site with a Ziploc bag to shower) Lifting Restrictions: No lifting > 15 pounds for 3 days with the arm on the side of the port Dressing / Incision Call your doctor if your incision/area has: Continuous Slow Oozing, Sudden Increased Bleeding, Increased Pain/ Swelling, Increased Redness, Foul Smelling Discharge and Swelling at the incision site Call your doctor if you observe: Fever of 101 or Higher Change Dressing in: 2 days (2-3 days- port site; ok to remove neck opsite in 1 day) Follow Up Care Please Follow Up With: Evelin Glover MD When: In 10 days for permanent suture removal?call office for appointment Test Results: Test results from this visit will be discussed in further detail at your follow- up appointment, if applicable. Discharge Plan Admission Attending Provider: Evelin Glover Primary Care Provider: Marvin Schroeder Instructions Print Language: Pashto Discharge Orders/Prescriptions Prescriptions: New tramadol 50 mg tablet 50 mg PO Q6H PRN (Reason: pain) 2 Days Qty: 3 0RF Continued Spiriva with HandiHaler 18 mcg capsule, w/inhalation device 1 cap INHALATION DAILY Qty: 90 3RF Rx Instructions: puncture 1 cap using device; one dose = 2 inhalations albuterol sulfate [ProAir HFA] 90 mcg/actuation HFA aerosol inhaler 1 puff inhalation Q6H PRN (Reason: shortness of breath or wheezing) ascorbic acid (vitamin C) 500 mg tablet 500 mg PO DAILY ibuprofen 200 mg tablet 200 mg PO Q6H PRN (Reason: pain) multivitamin Tablet 1 tab PO DAILY tamsulosin 0.4 mg capsule 0.4 mg PO QHS lidocaine-prilocaine 2.5-2.5 % cream 1 applic topical ONCE PRN (Reason: port access) 30 Days Qty: 30 2RF ondansetron 8 mg tablet,disintegrating 8 mg PO Q8H PRN (Reason: nausea and vomiting) Qty: 30 2RF dexamethasone 4 mg tablet 8 mg PO .COMPLEX Qty: 6 3RF Rx Instructions: 8 mg orally daily ONLY on days 2, 3, 4 of chemotherapy cycle simvastatin 40 MG tablet 40 mg PO QHS finasteride 5 MG tablet 5 mg PO DAILY paroxetine HCl 20 mg tablet 20 mg PO DAILY cefuroxime axetil 250 mg tablet 250 mg PO BID omeprazole 40 mg capsule,delayed release(DR/EC) 40 mg PO DAILY budesonide-formoterol [Symbicort] 160-4.5 mcg/actuation HFA aerosol inhaler 2 puff INHALATION BID Qty: 3 3RF Referrals / Follow Up: Marvin Schroeder DO [Primary Care Provider] - Disposition Disposition (needs filled in before D/C Order can be placed): Home, Self Care
--- NOTE | 2024-05-10 08:20 | RAD_ITS ---
STUDY: X-RAY CHEST REASON FOR EXAM: Male, 74 years old. Port -- PORTABLE PACU TECHNIQUE: Single AP portable view of the chest. COMPARISON: Comparison is made with prior study dated August 30, 2019. FINDINGS: A right-sided portacatheter has been placed with the tip in the proximal portion of the superior vena cava. There is hyperinflation of the lungs consistent with chronic obstructive lung disease (COPD). Persistent mild increased markings at the lung bases likely worse on the right side. There is no demonstrated pleural abnormality. Normal size heart. Normal mediastinum and nannette. Normal visualized pulmonary arteries. There is atherosclerotic tortuosity of the aortic arch and descending thoracic aorta. There are diffuse degenerative changes of the visualized thoracic spine. Normal visualized ribs, clavicles, and shoulders. There is no demonstrated abnormality of the visualized soft tissue structures of the upper abdomen. RAD/Chest 1 View (Portable) IMPRESSION: The tip of the right-sided portacatheter is in the proximal portion of the superior vena cava. Hyperinflation. Electronically Signed: Fracisco Paredes MD at 9:22 EDT ,
== END 2024-05-10 09:54 | disposition home or self-care (01) ==
LOC: SDC 05:56 → AC 05:58
PROVIDERS: PCP Family Medicine; Referring Provider Surgery; Visit Provider Surgery
PROC: (CPT 36561; principal; 2024-05-10 07:15)
DX: Z45.2 Encounter for adjustment and management of vascular access device (principal); C78.01 Secondary malignant neoplasm of right lung; C34.92 Malignant neoplasm of unspecified part of left bronchus or lung; F17.210 Nicotine dependence, cigarettes, uncomplicated; Z79.51 Long term (current) use of inhaled steroids; Z79.899 Other long term (current) drug therapy
CPT/HCPCS: 36561; 00532; 71045; 77001; J7120

== ENCOUNTER 2024-05-20 09:36 | Emergency (ER) | payer MEDICARE, SELFPAY ==
[2020-03-31 12:58] VITALS: BMI 22.0
[2024-05-20] VITALS (8 sets, daily range): BP systolic 105–130; BP diastolic 72–87; PULSE 54–65; RESP 11–22; TEMP 35.4–36.7; O2SAT 97–100; BMI 19.1
--- NOTE | 2024-05-20 10:34 | EKG12_ITS ---
Test Reason : Blood Pressure : / mmHG Vent. Rate : 059 BPM Atrial Rate : 059 BPM P-R Int : 214 ms QRS Dur : 064 ms QT Int : 406 ms P-R-T Axes : 082 049 087 degrees QTc Int : 401 ms Sinus bradycardia with 1st degree A-V block Low voltage QRS Borderline ECG Confirmed by LUIS MANNING, MICHELLE ([id number]), offline editor JE GALAVIZ ([id number]) on 05/22/2024 9:28:32 AM Referred By: Confirmed By:MICHELLE SMITH MD
--- NOTE | 2024-05-20 10:35 | EDS_ITS ---
HPI History of Present Illness Chief Complaint: Weakness Informant: patient and family Narrative Narrative: 74-year-old male with lung cancer started chemotherapy 5 or 6 days ago. States he has been doing fairly well for the first 3 to 4 days, but then he started getting very nauseated, and since then he has had significant decrease in his oral intake. In the last couple days as a result of this, presumably, he has been standing up and feeling lightheaded near syncopal and weak. No fevers or chills. No vomiting or diarrhea. No major abdominal pain although occasionally he had some upper abdominal discomfort, not now. No back pain. He states his breathing is actually been better since he had the chemotherapy, he denies any acute cough, chest discomfort, or dyspnea this morning. No edema in his legs or orthopnea. States he recently had a Mediport put in, he was due today for an appointment to get the sutures out. He states it has been doing well. He states this morning he checked his blood pressure and his pulse oximetry and his pulse, he states he was resting and feeling fine at the time, at 1 point is pulse was measuring at 24 but he states this was on the pulse oximeter, and he states then relatively quickly went up to 60. He did not feel any different at the time. Similarly he said his pulse ox measured 78% but then quickly went up to 100. [facility] Medical History Encounter for education Wears hearing aid Wears glasses Wears dentures Cancer Alcohol use Arthritis Easy bruising Restless legs Migraine headache Syncope Difficulty swallowing On home oxygen therapy Smoker Shortness of breath on exertion Leg cramps Chronic cough History of echocardiogram Parapharyngeal space mass Emphysema lung Asthma Anxiety Lung nodule history of tumor removal BPH (benign prostatic hyperplasia) Hyperlipidemia Depression GERD (gastroesophageal reflux disease) COPD (chronic obstructive pulmonary disease) Home Medications ?Medication ?Instructions ?Recorded ?Last Taken ?Type simvastatin 40 mg tablet 40 mg PO QHS cholesterol 07/18/17 08/28/19 History finasteride 5 mg tablet 5 mg PO DAILY prostate 08/29/19 08/28/19 History paroxetine HCl 20 mg tablet 20 mg PO DAILY depression 06/29/21 Unknown History tiotropium bromide 18 mcg capsule 1 cap inhalation DAILY #90 01/16/23 Unknown Rx with inhalation device (Spiriva inhalations with HandiHaler) budesonide-formoterol HFA 160 2 puff inhalation BID #3 device 02/15/24 Unknown Rx mcg-4.5 mcg/actuation aerosol inhaler (Symbicort) albuterol sulfate 90 mcg/actuation 1 puff inhalation Q6H PRN 03/25/24 Unknown History aerosol inhaler (ProAir HFA) shortness of breath or wheezing ascorbic acid (vitamin C) 500 mg 500 mg PO DAILY 03/25/24 Unknown History tablet ibuprofen 200 mg tablet 200 mg PO Q6H PRN pain 03/25/24 Unknown History multivitamin 1 tab PO DAILY 03/25/24 Unknown History tamsulosin 0.4 mg capsule 0.4 mg PO QHS 03/25/24 Unknown History cefuroxime axetil 250 mg tablet 250 mg PO BID 05/03/24 Unknown History omeprazole 40 mg capsule,delayed 40 mg PO DAILY 05/03/24 Unknown History release dexamethasone 4 mg tablet 8 mg (2 x 4 mg) PO .COMPLEX #6 tabs 05/06/24 Unknown Rx lidocaine-prilocaine 2.5 %-2.5 % 1 applic topical ONCE PRN port 05/06/24 Unknown Rx topical cream access 30 days #30 grams ondansetron 8 mg disintegrating 8 mg PO Q8H PRN nausea and 05/06/24 Unknown Rx tablet vomiting #30 tabs tramadol 50 mg tablet 50 mg PO Q6H PRN pain 2 days #3 05/10/24 Unknown Rx tabs ondansetron 8 mg disintegrating 8 mg PO Q8H PRN nausea and 05/20/24 Unknown Rx tablet vomiting #20 tabs Allergy/AdvReac Type Severity Reaction Status Date / Time Sulfa (Sulfonamide Allergy Hives Verified 05/20/24 09:37 Antibiotics) Family History Brother Diabetes Heart disease Sister Liver tumor Bladder tumor Father CVA (cerebral vascular accident) Heart disease Myocardial infarction Mother Heart disease Dementia Surgical History Hx of colonoscopy Hx of tonsillectomy Hx of arthroscopic knee surgery History of radical neck surgery History of parotid gland excision Social History household members: other details: Smoking Status: Current every day smoker tobacco type: cigarettes alcohol intake: current alcohol intake frequency: a few times a week substance use type: does not use ROS ROS ED Constitutional Constitutional ED: Reports malaise and weakness; Denies chills or fever(s) Eyes Eyes: Denies change in vision or diplopia ENT ENT ED: Denies rhinorrhea or sore throat Cardiovascular Cardiovascular: Reports lightheadedness; Denies chest pain, palpitations or syncope Respiratory/Chest Respiratory/Chest: Denies cough or dyspnea Gastrointestinal Gastrointestinal: Reports nausea; Denies abdominal pain, diarrhea, melena or vomiting Genitourinary Genitourinary ED: Denies dysuria or hematuria Musculoskeletal Musculoskeletal: Denies back pain or neck pain Integumentary Denies abscess or rash Neurologic Neurologic: Denies headache(s), paresthesias or weakness Psychiatric Psychiatric: Denies suicidal thoughts EXAM Physical Exam Const Vital Signs: 05/20/24 09:37 05/20/24 09:42 05/20/24 09:47 Temperature 95.8 F L 98.0 F Temperature Source Temporal Temporal Pulse Rate 63 57 L Respiratory Rate 22 H 13 Respiratory Pattern Normal Blood Pressure 105/72 112/78 Blood Pressure Mean 83 89 Pulse Ox 100 98 Oxygen Delivery Method Room Air Room Air 05/20/24 10:37 05/20/24 10:42 05/20/24 10:58 Temperature 98.0 F 98.0 F Temperature Source Temporal Temporal Pulse Rate 59 L 59 L 60 Respiratory Rate 11 L 11 L 18 Respiratory Pattern Blood Pressure 114/87 H 114/87 H 122/87 H Blood Pressure Mean 96 96 98 Pulse Ox 98 98 98 Oxygen Delivery Method Room Air Room Air Room Air 05/20/24 10:58 05/20/24 11:58 05/20/24 11:58 Temperature 98.0 F Temperature Source Temporal Pulse Rate 60 65 65 Respiratory Rate 18 16 16 Respiratory Pattern Blood Pressure 122/87 H 127/86 H 127/86 H Blood Pressure Mean 98 99 99 Pulse Ox 98 97 97 Oxygen Delivery Method Room Air Room Air Room Air 05/20/24 12:58 05/20/24 12:58 Temperature 98.0 F Temperature Source Temporal Pulse Rate 54 L 64 Respiratory Rate 14 14 Respiratory Pattern Blood Pressure 130/76 H 130/76 H Blood Pressure Mean 94 94 Pulse Ox 97 97 Oxygen Delivery Method Room Air Room Air Positive well nourished and well developed General Appearance ED: well developed and NAD HEENT Reports moist mucous membranes normocephalic and atraumatic Eyes PERRL and EOMs intact bilaterally Neck full ROM and supple Chest Wall inspection of chest normal and palpation of chest normal Resp normal respiratory effort Resp Narrative: Diminished diffusely, prolonged expiratory phase no distress speaking full sentences Cardio regular rate and regular rhythm Cardio Narrative: Very faint heart sounds GI non-tender and non-distended Auscultation: normoactive bowel sounds Palpation: soft Back/Spine no CVA tenderness General Back: other FROM Extremity normal to inspection General Extremety ED: Negative for edema, pulses abnormal or tenderness General Extremity: Negative for edema or pulses abnormal Neuro oriented x3, CN's II-XII intact bilaterally and no sensory deficits noted Sensorium / Orientation: awake and alert Motor Exam: strength 5/5 throughout Psych mental status grossly normal Skin no rashes or lesions noted and no wounds MDM MDM MDM Narrative Medical decision making narrative: With regards to the patient checking his pulse ox and pulse, it is unclear if he had reliable readings or not. His pulse is in the 60s here in sinus rhythm on the monitor, his pulse ox is 98-100% on room air and he has not been feeling dyspneic, with a benign symmetric lung exam. There have been no episodes of bradycardia here. EKG shows sinus rhythm at 59 he has first-degree AV block, no ectopy. His labs are noted and remarkable for prerenal azotemia, I suspect that his partially related to the lightheadedness he was having. His total bilirubin is up a little bit, compared to normal at his baseline. His other liver enzymes are basically within normal limits. He feels a lot better after IV fluids and Zofran and wants to go home. I put a call out to oncology to discuss, no other instructions or recommendations. Lab Data Attestation: I reviewed the patient's lab results. Labs: Laboratory Results - last 24 hr 05/20/24 11:00 WBC 7.8 RBC 4.90 Hgb 16.0 Hct 49.5 MCV 101.0 H MCH 32.7 H MCHC 32.3 RDW Std Deviation 48.6 H RDW Coeff of Vashti 12.9 Plt Count 229 MPV 9.6 Immature Gran % (Auto) 0.900 Neut % (Auto) 90.0 H Lymph % (Auto) 6.5 L [place] % (Auto) 1.4 Eos % (Auto) 0.9 Baso % (Auto) 0.3 Absolute Neuts (auto) 7.0 Absolute Lymphs (auto) 0.51 L Nucleated RBC % 0 Sodium 132 L Potassium 5.0 Chloride 97 L Carbon Dioxide 31.0 Anion Gap 4 L BUN 23 H Creatinine 0.81 Estim Creat Clear Calc 69.39 Est GFR (MDRD) Af Amer 120 Est GFR (MDRD) Non-Af 99 BUN/Creatinine Ratio 28.3 H Glucose 84 Calcium 9.2 Total Bilirubin 1.30 H AST 40 H ALT 49 Alkaline Phosphatase 67 Total Protein 7.1 Albumin 3.4 Globulin 3.7 Albumin/Globulin Ratio 0.9 Rhythm Strip Rhythm Strip: Sinus Rhythm Rate: 60 Ectopy: None Management Discussion w/another healthcare provider: Potato Chip Frier ([facility] - oncology) Discharge Plan Triage Chief Complaint: Weakness ED Provider: Lester Llanos Dx/Rx/DC Orders Clinical Impression: Acute dehydration, Near syncope, Nausea Instructions: Cancer Tx Control Nausea Vomiting, ED Dehydration (Adult) Prescriptions: New ondansetron 8 mg tablet,disintegrating 8 mg PO Q8H PRN (Reason: nausea and vomiting) Qty: 20 0RF No Action Spiriva with HandiHaler 18 mcg capsule, w/inhalation device 1 cap INHALATION DAILY Qty: 90 3RF Rx Instructions: puncture 1 cap using device; one dose = 2 inhalations albuterol sulfate [ProAir HFA] 90 mcg/actuation HFA aerosol inhaler 1 puff inhalation Q6H PRN (Reason: shortness of breath or wheezing) ascorbic acid (vitamin C) 500 mg tablet 500 mg PO DAILY ibuprofen 200 mg tablet 200 mg PO Q6H PRN (Reason: pain) multivitamin Tablet 1 tab PO DAILY tamsulosin 0.4 mg capsule 0.4 mg PO QHS lidocaine-prilocaine 2.5-2.5 % cream 1 applic topical ONCE PRN (Reason: port access) 30 Days Qty: 30 2RF ondansetron 8 mg tablet,disintegrating 8 mg PO Q8H PRN (Reason: nausea and vomiting) Qty: 30 2RF dexamethasone 4 mg tablet 8 mg PO .COMPLEX Qty: 6 3RF Rx Instructions: 8 mg orally daily ONLY on days 2, 3, 4 of chemotherapy cycle simvastatin 40 MG tablet 40 mg PO QHS finasteride 5 MG tablet 5 mg PO DAILY paroxetine HCl 20 mg tablet 20 mg PO DAILY cefuroxime axetil 250 mg tablet 250 mg PO BID omeprazole 40 mg capsule,delayed release(DR/EC) 40 mg PO DAILY tramadol 50 mg tablet 50 mg PO Q6H PRN (Reason: pain) 2 Days Qty: 3 0RF budesonide-formoterol [Symbicort] 160-4.5 mcg/actuation HFA aerosol inhaler 2 puff INHALATION BID Qty: 3 3RF Primary Care Provider: Marvin Schroeder Referrals: Marvin Schroeder DO [Primary Care Provider] - Roshan Tabares MD [Med Staff - Active Staff] - As soon as possible Print Language: Uzbek Disposition Disposition: Home, Self Care
[2024-05-20] MEDS: Ondansetron 4 MG/2 ML Vial IV (11:05)
[2024-05-20] MEDS: 0.9% Normal Saline (1000mL) 1,000 ML 1000 ML IV (11:05)
[2024-05-20 11:10] LABS: Absolute Lymphocyte Count 0.51 X10^3/uL (0.83-4.51); Basophil# 0.02 X10^3/uL; Basophil% 0.3 % (0-1); Eosinophil# 0.07 X10^3/uL; Eosinophils% 0.9 % (0-5); Hematocrit 49.5 % (40-54); Lymphocyte # 0.51 X10^3/ul (0.83-4.51); Lymphocyte % 6.5 % (19-41); Mean Corp Hgb Conc 32.3 g/dL (32-36); Mean Corpuscular Hgb 32.7 pg (27.0-32.0); Mean Platelet Vol. 9.6 fl (6.2-12.0); Monocyte# 0.11 X10^3/uL; Monocyte% 1.4 % (0-10); NRBC Flagged by Analyzer 0 % (0-5); Neutrophil # 7.01 X10^3/uL (2.7-7.7); POSITIVE DIFFERENTIAL YES; Platelet Count 229 K/mm3 (150-450); RBC Distribution Width CV 12.9 % (11.6-14.6); RBC Distribution Width SD 48.6 fl (35.1-43.9); White Blood Count 7.8 K/mm3 (4.4-11.0)
[2024-05-20 11:30] LABS: ALB/GLOB Ratio 0.9 RATIO (0.9-2.4); AST(SGOT) 40 U/L (15-37); Alanine Aminotransfer ALT/SGPT 49 U/L (16-61); Albumin, Serum 3.4 g/dL (3.2-5.0); Alkaline Phosphatase 67 U/L (45-117); Anion Gap 4 (5-15); BUN 23 mg/dL (7-18); BUN/Creat Ratio 28.3 RATIO (10-20); Calcium,Total 9.2 mg/dL (8.5-10.1); Chloride 97 mmol/L (98-107); Creatinine, Serum 0.81 mg/dL (0.70-1.30); EST Glomerular Filtration Rate 99 mL/min (>60); Est Glom Filt Rate - Afr Amer 120 mL/min (>60); Estimated Creatinine Clearance 69.39 ml/min; Globulin 3.7 g/dL (2.2-4.2); Glucose 84 mg/dL (74-106); Protein, Total 7.1 g/dL (6.4-8.2); Sodium Level 132 mmol/L (136-145)
== END 2024-05-20 13:50 | disposition home or self-care (01) ==
PROVIDERS: Emergency Provider Emergency Medicine; PCP Family Medicine; Visit Provider Emergency Medicine
DX: E86.0 Dehydration (principal); C34.90 Malignant neoplasm of unspecified part of unspecified bronchus or lung; J43.9 Emphysema, unspecified; R55 Syncope and collapse; R11.0 Nausea; F17.210 Nicotine dependence, cigarettes, uncomplicated; E78.5 Hyperlipidemia, unspecified; K21.9 Gastro-esophageal reflux disease without esophagitis; I44.0 Atrioventricular block, first degree; R79.89 Other specified abnormal findings of blood chemistry
CPT/HCPCS: 80053; 85025; 93005; 96361; 96374; 96376; 99284; J7030; A4216; J2405

== ENCOUNTER → 2024-07-31 | Outpatient (CLI) | payer MEDICARE, SELFPAY ==
[2020-03-31 12:58] VITALS: BMI 22.0
--- NOTE | 2024-07-31 12:37 | CT_ITS ---
INDICATION: ACCESS TX RESPONSE-LUNG CA-IV ONLY EXAMINATION: CT CHEST AND ABDOMEN WITH CONTRAST - CT Chest And Abdomen W/ Contrast Injection TECHNIQUE: Helically acquired images were obtained of the chest and abdomen.The protocol utilizes one or more of the following dose reduction techniques: automated exposure control, adjustment of mA and/or kV according to patient size,and/or use of iterative reconstruction technique. IV Contrast dosage and agent: Oral contrast: None. COMPARISON: January 29, 2020 FINDINGS: ----Chest: LUNGS, PLEURA AND LARGE AIRWAYS: Emphysematous changes. No masses, consolidation, or edema. There is mucus within the right lower lobe bronchioles. Focal left basilar consolidation/atelectasis posteromedially is noted in the area where a previously noted nodule. No pneumothorax. Basilar atelectasis. THYROID: No thyroid lesions. HEART AND PERICARDIUM: Heart size is normal. No pericardial effusion. VESSELS: Thoracic aorta is not dilated. MEDIASTINUM AND JOHNNIE: No mediastinal or hilar adenopathy. Esophagus is unremarkable. No hiatal hernia. BONES: No suspicious lytic or blastic abnormality. ----Abdomen (without Pelvis): LIVER: Homogeneous. There is a 2 cm heterogeneous right hepatic nodule, image 18 series 3. Subcentimeter hepatic cysts cystic nodules. GALLBLADDER AND BILIARY TREE: No calcified gallstones. No gallbladder distension or wall edema. No intra- or extrahepatic biliary ductal dilation. PANCREAS: No focal cystic or solid mass. SPLEEN: Normal size without focal cystic or solid mass. ADRENAL GLANDS: No nodules. KIDNEYS AND URETERS: Normal renal size and position. No hydronephrosis. PERITONEUM: No ascites or free air. No other fluid collection. BOWEL: No evidence of acute appendicitis. No stomach or bowel distension. No focal inflammatory change. LYMPH NODES: No enlarged mesenteric or retroperitoneal lymph nodes. VESSELS: Aorta is diffusely calcified. ABDOMINAL WALL: No discrete abdominal wall hernia. BONES: No lytic or blastic abnormality. CT/CT Chest AND Abd W/ Contrast IMPRESSION: Emphysematous changes. There is mucus within the right lower lobe bronchioles. Focal left basilar consolidation/atelectasis posteromedially is noted in the area where a previously noted nodule. Basilar atelectasis. Right hepatic heterogeneous nodule. Electronically Signed: Isaais Kim DO at 16:50 EDT ,
[2024-07-31] MEDS: 0.9 % NaCl (Sterile) Posiflush 10 mL IV (12:54)
== END | disposition home or self-care (01) ==
LOC: CT 12:36
PROVIDERS: PCP Family Medicine; Referring Provider Internal Medicine Medical Oncology; Visit Provider Internal Medicine Medical Oncology
DX: C34.32 Malignant neoplasm of lower lobe, left bronchus or lung (principal)
CPT/HCPCS: 71260; 74160; Q9967; A4216

== ENCOUNTER → 2024-12-03 | Outpatient (CLI) | payer MEDICARE, SELFPAY ==
[2020-03-31 12:58] VITALS: BMI 22.0
--- NOTE | 2024-12-03 08:03 | NM_ITS ---
PROCEDURE: BONE SCAN WHOLE BODY REASON FOR EXAM: History of [id number] lung carcinoma. TECHNIQUE: Whole-body bone scan with anterior and posterior views. Imaging at 3.5 hours. RADIOPHARMACEUTICAL: 26.9 mCi Technetium-99m MDP IV COMPARISON: CORRELATION WITH EXISTING RELEVANT IMAGING STUDIES (i.e. x-ray, MRI, CT, etc.): No existing relevant imaging study available or patient did not have a previous relevant imaging study. FINDINGS: Bones: Increased radiopharmaceutical uptake at the level of the acromioclavicular joints bilaterally suggestive of degenerative change. Focal uptake is also seen in the lower cervical spine more prominent on the left side. This most likely represents degenerative changes. Kidneys: Normal activity is identified at both kidneys. NM/Bone Scan Whole Body IMPRESSION: NO SCINTIGRAPHIC EVIDENCE OF METASTATIC DISEASE TO BONE. Reading Location: [id number]
== END | disposition home or self-care (01) ==
LOC: NM 07:59
PROVIDERS: PCP Family Medicine; Referring Provider Nurse Practitioner Family; Visit Provider Nurse Practitioner Family
DX: C34.92 Malignant neoplasm of unspecified part of left bronchus or lung (principal); R51.9 Headache, unspecified
CPT/HCPCS: 78306; A9503

== ENCOUNTER → 2024-12-10 | Outpatient (CLI) | payer MEDICARE, SELFPAY ==
[2020-03-31 12:58] VITALS: BMI 22.0
--- NOTE | 2024-12-10 06:26 | CT_ITS ---
PROCEDURE: CT CHEST AND ABD W/ CONTRAST REASON FOR EXAM: History of [id number] lung carcinoma. Shortness of breath. TECHNIQUE: Chest and abdomen CT with intravenous contrast. No oral contrast. CONTRAST: 100 cc of Isovue-300. COMPARISON: Comparison is made with prior study dated July 31, 2024. FINDINGS: CT CHEST: Hardware: A right-sided port a catheter is seen with the tip in the superior vena cava. Lymph nodes: No mediastinal, hilar, or axillary lymphadenopathy. Heart and Vasculature: Normal heart size. No pericardial effusion. Atherosclerotic calcifications of the thoracic aorta. Pulmonary arteries are unremarkable. Coronary artery calcification. Lungs and Airways: Advanced emphysematous changes are present. Stable scarring at the right lung base. Stable scarring at the left lung base as well with bullous formation. Pleura: No pleural effusion. No pneumothorax. CT ABDOMEN: Liver: Stable scattered tiny cysts in the left lobe of the liver. Decrease in size of the previously seen heterogeneous hypodense nodule in the posterior aspect of the right lobe of the liver superiorly. It presently measures 1.3 cm. Gallbladder: Unremarkable. Spleen: Unremarkable. Pancreas: Unremarkable. Adrenals: Unremarkable. Kidneys: Unremarkable.. Diffuse bladder wall thickening with trabeculation. Marked degree of enlargement of the prostate with indentation at the bladder base. Bowel: Visualized loops of bowel in the upper abdomen are unremarkable. Lymph nodes: No suspicious lymph node enlargement at the upper abdomen. Vasculature: Mild diffuse atherosclerotic calcifications are noted. Peritoneum / Retroperitoneum: No ascites or free air at the upper abdomen. Bones: Degenerative changes of the spine. CT/CT Chest AND Abd W/ Contrast IMPRESSION: There has been a decrease in the size of the previously seen hypodense nodule i n the posterior aspect of the right lobe of the liver superiorly. Marked degree of prosthetic enlargement with indentation of the bladder base wi th diffuse bladder wall thickening and trabeculation. One or more dose reduction techniques were used (e.g., Automated exposure contr ol, adjustment of the mA and/or kV according to patient size, use of iterative reconstruction technique). Reading Location: [facility]
[2024-12-10] MEDS: 0.9% Saline Lock 10 ML Syringe IV (07:57)
== END | disposition home or self-care (01) ==
PROVIDERS: PCP Family Medicine; Referring Provider Nurse Practitioner Family; Visit Provider Nurse Practitioner Family
DX: C34.92 Malignant neoplasm of unspecified part of left bronchus or lung (principal); J44.9 Chronic obstructive pulmonary disease, unspecified
CPT/HCPCS: 71260; 74160; 94060; 94726; 94729; Q9967; A4216

== ENCOUNTER → 2024-12-12 | Outpatient (CLI) | payer MEDICARE, SELFPAY ==
[2020-03-31 12:58] VITALS: BMI 22.0
[2024-12-12 11:39] VITALS: PULSE 61; PULSE 67; PULSE 68; PULSE 71; PULSE 72; PULSE 77; PULSE 82; O2SAT 85; O2SAT 86; O2SAT 87; O2SAT 89; O2SAT 90; O2SAT 92; O2SAT 98
--- NOTE | 2024-12-13 13:31 | WT_ITS ---
PSN 6 Minute Walk Test 6 Minute Walk Test 6 Minute Walk Test: 6 Minute Walk Test PSN:6-Minute Walk Test Start: 12/12/24 11:39 Freq: Status: Active Protocol: [id number] Document 12/12/24 11:39 LUZ ELENA (Rec: 12/12/24 11:42 LUZ ELENA [id number]) 6 Minute Walk Test Date Performed 12/12/24 Time Performed 11:15 Height 5 ft 9 in Weight: 134 lb Weight in Pounds 134.[address]: Lisseth Dover [employer]SW[employer]ING [employer] Assistive device None used: Pre-test Oxygen Delivery Room Air Method Pulse Ox (%) 86 Pulse Rate (60-100 61 beats/min) Dyspnea Zander Scale ( 0 0-10) Exertion Zander Scale 6 (6-20) 1st minute Oxygen Flow Rate (L/ 2 min) (L/min) Oxygen Delivery Nasal Cannula Method Pulse Ox (%) 89 Pulse Rate (60-100 68 beats/min) 2nd minute Oxygen Flow Rate (L/ 2 min) (L/min) Oxygen Delivery Nasal Cannula Method Pulse Ox (%) 90 Pulse Rate (60-100 71 beats/min) 3rd minute Oxygen Flow Rate (L/ 2 min) (L/min) Oxygen Delivery Nasal Cannula Method Pulse Ox (%) 87 Pulse Rate (60-100 77 beats/min) Dyspnea Zander Scale ( 3 0-10) 4th minute Oxygen Flow Rate (L/ 3 min) (L/min) Oxygen Delivery Nasal Cannula Method Pulse Ox (%) 92 Pulse Rate (60-100 67 beats/min) 5th minute Oxygen Flow Rate (L/ 3 min) (L/min) Oxygen Delivery Nasal Cannula Method Pulse Ox (%) 89 Pulse Rate (60-100 72 beats/min) 6th minute Oxygen Flow Rate (L/ 3 min) (L/min) Oxygen Delivery Nasal Cannula Method Pulse Ox (%) 85 Pulse Rate (60-100 82 beats/min) Dyspnea Zander Scale ( 4 0-10) Exertion Zander Scale 13 (6-20) Post-test Oxygen Flow Rate (L/ 4 min) (L/min) Oxygen Delivery Nasal Cannula Method Pulse Ox (%) 98 Pulse Rate (60-100 61 beats/min) Full Laps Walked 12 Partial Lap, Number 16 of Tiles Walked Total Distance 724 Walked (ft) Interpretation Interpretation: The patient ambulated 724 feet over the course of 6 minutes beginning on room air without assistive devices. Pretesting oxygen saturation was noted to be 86% on room air. 2 L/min of supplemental oxygen was applied prior to the initiation of testing. With ambulation, the patient desaturated on several occasions, requiring escalation in supplemental oxygen flow rate to 4 L/min with exertion. Recommendations Recommendations: 2 L/min of supplemental oxygen should be utilized at rest, while 4 L/min is req uired with exertion.
== END | disposition home or self-care (01) ==
LOC: PSN 10:54
PROVIDERS: PCP Family Medicine; Referring Provider Nurse Practitioner Acute Care; Visit Provider Nurse Practitioner Acute Care
DX: J44.9 Chronic obstructive pulmonary disease, unspecified (principal)
CPT/HCPCS: 94618

== ENCOUNTER → 2025-02-20 | Outpatient (CLI) | payer MEDICARE, SELFPAY ==
[2020-03-31 12:58] VITALS: BMI 22.0
== END | disposition home or self-care (01) ==
LOC: LAB 13:28
PROVIDERS: PCP Family Medicine; Referring Provider Nurse Practitioner; Visit Provider Nurse Practitioner
DX: Z12.5 Encounter for screening for malignant neoplasm of prostate (principal)
CPT/HCPCS: 36415; 84153; G0103

== ENCOUNTER → 2025-05-22 | Outpatient (CLI) | payer MEDICARE, SELFPAY ==
[2020-03-31 12:58] VITALS: BMI 22.0
--- NOTE | 2025-05-22 12:51 | ST.MBS ---
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 From 04/13/2020 - 05/27/2020 he received adjuvant radiation therapy.? 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 Received cycle 2 on 06/05/24. Cycle 3 given 06/26/24. Got C4 on 07/17/2024. CT chest on 07/31/2024 showed decrease mass in L lower lobe. Began maintenance pembrolizumab on 08/07/24?Comes for C18 Keytruda.? The patient participated in OP ST from 04/22/2020 to 08/12/2020 to address dysphagia related to radiation therapy for hx of HNC. He has participated in 3 follow-up MBSS (04/06/2021, 03/07/2023, 04/01/2024). Most recent MBSS 04/01/2025 revealed mild oropharyngeal dysphagia and recommended, ?Regular Textures and Thin Liquids; Compensatory Strategies: Small Bites (chew thoroughly), Small Sips (cough and re-swallow as needed/at reasonable intervals during intake to laryngeal vestibule clearance and reduce risks associated w/ penetration/aspiration.), Slow Rate (one sip at a time, avoid sequential intake), Multiple Swallows (as needed to clear pharyngeal residue), Alternate bites/solids and sips/liquids and Sitting upright.? No dysphagia tx warranted at that time. He now returns for annual MBSS for reassess swallow function due to risk for worsening dysphagia and aspiration risk s/p radiation treatment for hx of HNC. Current Diet Ordered: Regular textures / Thin liquids Dentition: Upper Dentures Mental Status: WNL Respiratory Status: Oxygenating on Room Air Penetration-Aspiration Scale Penetration-Aspiration Scale: OBJECTIVE ASSESSMENT OF SWALLOW FUNCTION (QUANTITATIVE ? PER TRIAL): PENETRATION / ASPIRATION SCALE (REGALADO): 1 = does not enter airway 2 = enters airway/above vocal folds/ejected 3 = enters airway/above vocal folds/not ejected 4 = enters airway/contacts vocal folds/ejected 5 = enters airway/contacts vocal folds/not ejected 6 = enters airway/below vocal folds/ejected 7 = enters airway/below vocal folds/not ejected despite effort 8 = enters airway/below vocal folds/no effort VIDEOFLOROSCOPIC SCALE SCORE (REGALADO): Grade I = aspiration of material that has penetrated into the laryngeal vestibule, intact cough reflex Grade II = aspiration < 10 % of the bolus, intact cough reflex Grade III = aspiration of < 10 % of the bolus, reduced cough reflex or aspiration of > 10 % of the bolus, intact cough reflex Grade IV = aspiration of > 10 % of the bolus, reduced cough reflex Penetration-Aspiration Scale Score Thin Liquid via teaspoon: Result: 1= does not enter airway Thin Liquid via teaspoon Trial 2: Result: 1= does not enter airway Thin Liquid via large single sip: cup: Result: 1= does not enter airway [place] Thick Liquid via small single sip: cup: Result: 1= does not enter airway Pudding via teaspoon: Result: 1= does not enter airway Comment: Esophageal screen - Retention in the lower esophagus. Thin Liquid via single sip: straw: Result: 5= enters airways/contacts vocal folds/not ejected Comment: Esophageal screen - Liquid wash cleared majority of pudding retention in the lower esophagus. 1/2 Cookie: Result: 1= does not enter airway Comment: Trialed chin tuck after the swallow to clear the vallecula = somewhat effective. Thin Liquid via large single sip: cup Trial 2: Result: 1= does not enter airway Thin Liquid via large single sip: cup Effortful swallow: Result: 1= does not enter airway Oral Phase Labial Seal: No Labial Escape Tongue Control During Bolus Hold: Posterior escape of greater than half of bolus (Cookie and pudding to vallecula) Bolus Preparation/Mastication: Timely and efficient chewing and mashing Bolus Transport/Lingual Motion: Slowed tongue motion Oral Residue: Residue collection on oral structures Pharyngeal Phase Initiation of Pharyngeal Swallow: Bolus head at posterior laryngeal surgace of epiglottis Soft Palate Elevation: Trace column of contrast/air between soft palate and pharyngeal wall Laryngeal Elevation: Partial superior movement thyroid cart/partial apprx aryt-epig petiole Anterior Hyoid Excursion: Partial anterior movement Epiglottic Movement: Complete inversion Laryngeal Vestibule Closure at Height of Swallow: Incomplete; narrow column of air/contrast in laryngeal vestibule Pharyngeal Stripping Wave: Present - diminished Pharyngoesophageal Segment Opening: Complete distension and complete duration; no obstruction of flow Tongue Base Retraction: Wide column of contrast between tongue base & post. pharyngeal wall Pharyngeal Residue: Collection of residue within or on pharyngeal structures Esophageal Phase Esophageal Clearance: Esophageal retention w/ retrograde flow below pharyngoesophageal seg. Treatment Strategies Effects of treatment strategies attemped:: chin tuck = somewhat effective liquid wash = effective Diagnosis/Impression Diagnosis: Mild oropharyngeal dysphagia R13.12 [facility] Impressions: The oral phase is primarily marked by... -Posterior loss of >1/2 of cookie and pudding to the vallecula prior to swallow onset. -Slowed tongue motion for A-P transport. -Mild oral residues, which pt fully cleared w/ use of a second swallow as needed. The pharyngeal phase is primarily marked by... -Decreased pharyngeal motility due to decreased TB retraction and pharyngeal stripping wave w/ moderate -Decrease airway closure due to decreased laryngeal elevation and anterior hyoid excursion w/ laryngeal penetration of thin liquids via straw to the vocal folds w/o complete ejection. No aspiration observed during the study. The esophageal phase is primarily marked by... -CP bar at the level of C5, which did not appear to impact bolus clearance through the UES. -Esophageal retention of pudding in the lower esophagus, which mostly cleared w/ thin liquid wash. Minimal retention of liquids w/ min retrograde flow. Recommendations Diet: Regular Textures and Thin Liquids Compensatory Strategies: Small Bites, Small Sips (Sips 1 at a time, Hard swallows), No Straws, Slow Rate, Multiple Swallows, Alternate bites/solids and sips/liquids, Sitting upright and Remain sitting upright for 30 minutes after PO intake Recommend Repeat Modified Barium Swallow: Yes Comment: Repeat MBSS in 6-12 months to monitor swallow function as the patient is at risk for worsening dysphagia and aspiration risk s/p radiation treatment for hx of HNC. Need for Skilled Speech Therapy Services: No Comment: Patient reports still having maintenance home exercise program information. He reports completing exercises intermittently, but admits to being very busy lately w/ medical appointments. Please continue home exercise program. Pt does not feel he requires re-instruction in aspiration precautions or exercise program at this time. Education Completed: 1. Described result of evaluation. and 5. Patient demonstrates recommended strategies. Comment: No immediate GI consult recommended; however, pt has retention of pudding in the lower esophagus that fully cleared w/ liquid wash. If concern for s/s of reflux or regurgitation of food/drink, consider discussing a GI consult w/ PCP. Status Active ST Patient: Active Contact Information [facility] Speech Therapy:: Juanita Amaya M.A. CCC-AUTOMATIC DRILL OPERATOR? Speech-Language Pathologist?? [facility] [address] [place] [address]? [email or web address]?? [phone]
== END | disposition home or self-care (01) ==
LOC: RAD 12:36
PROVIDERS: PCP Family Medicine; Referring Provider Student in an Organized Health Care Education/Training Program; Visit Provider Student in an Organized Health Care Education/Training Program
DX: C34.92 Malignant neoplasm of unspecified part of left bronchus or lung (principal); J44.9 Chronic obstructive pulmonary disease, unspecified
CPT/HCPCS: 74230; 92611

== ENCOUNTER → 2025-09-10 | Outpatient (CLI) | payer MEDICARE, SELFPAY ==
[2020-03-31 12:58] VITALS: BMI 22.0
--- NOTE | 2025-09-10 14:31 | CT_ITS ---
PROCEDURE: CHEST WITH CONTRAST 09/10/2025 REASON FOR EXAM: R/O PNEUMONITIS;M NSCLC ON IMMUNOTHERAPY TECHNIQUE: Procedure Code: CTCHW Modality: CT Procedure: CHEST WITH CONTRAST Coronal and Sagittal reconstruction series were provided. CONTRAST: Isovue 370 VOLUME: 100 mL One or more dose reduction techniques were used (e.g., Automated exposure control, adjustment of the mA and/or kV according to patient size, use of iterative reconstruction technique). RADIATION DOSE SUMMARY: CTDlvol: 10 mGy DLP: 296.68 mGycm COMPARISON: Prior study dated December 10, 2024. FINDINGS: Hardware: A right-sided port a catheter is seen with the tip in the superior vena cava. Lymph nodes: No significant lymph nodes are seen. Heart and Vasculature: The heart is nonenlarged. Coronary artery calcification. Atherosclerotic calcifications of the thoracic aorta. Pulmonary arteries are unremarkable. Lungs and Airways: Mild emphysematous changes are present. No septal thickening nodules or abnormal pulmonary opacities. Stable scarring in the posterior medial segment of the left lower lobe with evidence of bronchiectasis. Improvement in the scarring in the posterior aspect of the right lower lobe. In the Pleura: No pleural effusion. Upper Abdomen: Stable hypodense nodule in the peripheral posterior aspect of the right lobe of the liver. Stable cyst in the medial aspect of the left lobe of the liver. Bones: Degenerative changes of the thoracic spine. CT/Chest WITH Contrast IMPRESSION: Coronary artery calcification (CAC) is is present Essentially stable examination with evidence of scarring in the posterior media l segment of the left lower lobe in the right lower lobe. Stable finding in the liver. Reading Location: [place] [id number]
== END | disposition home or self-care (01) ==
LOC: CT 14:18
PROVIDERS: PCP Family Medicine; Referring Provider Nurse Practitioner Family; Visit Provider Nurse Practitioner Family
DX: C34.92 Malignant neoplasm of unspecified part of left bronchus or lung (principal)
CPT/HCPCS: 71260; Q9967; A4216